=== PATIENT | female | born 1960 | race Caucasian/White ===

== ENCOUNTER 2018-11-25 10:31 | Emergency (ER) | payer OTHER ==
[~2018-11-25] VITALS: Ht 170.2 cm; Wt 152.9 kg
--- NOTE | 2018-11-25 10:44 | ED General ---
General Chief Complaint: Lower Extremity Stated Complaint: LWR BACK/RT LEG PAIN History of Present Illness Date Seen by Provider: Nov 25, 2018 Time Seen by Provider: 10:42 Initial Comments Patient presents emergency department for evaluation of low back pain rate is down her right leg and into her foot and causes her numbness on the top of her right foot. She says she is still able to ambulate but it is painful to do so. She is living in a position and she says this helps relieve her pain. She denies any saddle anesthesia or other weakness numbness or tingling and she denies any bowel or bladder incontinence she says she has had back problems before in the past but has never had radicular symptoms. She is in no obvious distress with normal vital signs. Allergies and Home Medications Allergies Coded Allergies: Penicillins (Verified Adverse Reaction, Mild, nausea, 11/25/18) Patient Home Medication List Home Medication List Reviewed: Yes Review of Systems Review of Systems Constitutional: no symptoms reported EENTM: no symptoms reported Respiratory: no symptoms reported Cardiovascular: no symptoms reported Gastrointestinal: No abdominal pain; nausea Genitourinary: no symptoms reported Musculoskeletal: back pain Skin: no symptoms reported Psychiatric/Neurological: Numbness; Denies Tingling, Denies Weakness Physical Exam Vital Signs Vital Signs - First Documented 11/25/18 10:35 Temp 36.7 Pulse 73 Resp 16 B/P (MAP) 131/59 (83) Pulse Ox 95 O2 Delivery Room Air Capillary Refill : Height, Weight, BMI Height: '" Weight: lbs. oz. kg; BMI Method: General Appearance: No Apparent Distress HEENT: PERRL/EOMI Neck: Supple Respiratory: No Respiratory Distress Cardiovascular: Regular Rate, Rhythm Gastrointestinal: Non Tender, Soft Back: Decreased Range of Motion, Muscle Spasm, Vertebral Tenderness (midline lumbar and R paraspinal ttp.) Neurologic/Psychiatric: Alert, Oriented x3, Sensory Deficit (top of right foot feels more numb and then the left foot), Other (5 out of 5 strength in bilateral knee and ankle big toe flexion and extension.) Skin: Warm/Dry Progress/Results/Core Measures Suspected Sepsis SIRS Temperature: Pulse: Respiratory Rate: Blood Pressure / Mean: Results/Orders My Orders Orders - TYRA CELIS DO Ct Lumbar Spine Wo (11/25/18 10:50) Ondansetron Oral Dissolve Tab (Zofran (11/25/18 10:50) Ketorolac Injection (Toradol Injection) (11/25/18 11:00) Dexamethasone Injection (Decadron Inject (11/25/18 11:00) Oxycodone/Apap 5/325mg Tablet (Percocet (11/25/18 11:00) Diazepam Tablet (Valium Tablet) (11/25/18 11:00) Ketorolac Injection (Toradol Injection) (11/25/18 10:54) Ketorolac Injection (Toradol Injection) (11/25/18 11:07) Diazepam Tablet (Valium Tablet) (11/25/18 12:00) Hydromorphone Injection (Dilaudid Inject (11/25/18 12:00) Fentanyl Injection (Sublimaze Injection (11/25/18 13:00) Medications Given in ED Current Medications Medications Dose Ordered Sig/Kassandra Route Start Time Stop Time Status Last Admin Dose Admin Dexamethasone Sodium Phosphate 8 mg ONCE ONCE PO 11/25/18 11:00 11/25/18 11:01 DC 11/25/18 11:03 8 MG Diazepam 5 mg ONCE ONCE PO 11/25/18 12:00 11/25/18 12:01 DC 11/25/18 12:09 5 MG Diazepam 10 mg ONCE ONCE PO 11/25/18 11:00 11/25/18 11:01 DC 11/25/18 11:02 10 MG Hydromorphone HCl 2 mg ONCE ONCE IM 11/25/18 12:00 11/25/18 12:01 DC 11/25/18 12:09 2 MG Ketorolac Tromethamine 60 mg ONCE ONCE IM 11/25/18 11:00 11/25/18 11:01 DC 11/25/18 11:10 60 MG Oxycodone/ Acetaminophen 2 tab ONCE ONCE PO 11/25/18 11:00 11/25/18 11:01 DC 11/25/18 11:02 2 TAB Vital Signs/I&O 11/25/18 10:35 Temp 36.7 Pulse 73 Resp 16 B/P (MAP) 131/59 (83) Pulse Ox 95 O2 Delivery Room Air Capillary Refill : Progress Note : Progress Note Symptoms are most consistent with a lumbar radiculopathy. No red flag signs or symptoms necessitating an emergent MRI. Will check CT treat symptoms and reassess. Patient was given Decadron Toradol Percocet and Valium initially and she said this only marginally improved her pain. I then gave her a shot of Dilaudid which she said helped her pain some more however she was wanting another pain shot. I told her if her pain is not controlled at this time that she could be admitted to the hospital for further pain control. She refused stating that her pain is controlled well enough she would like to go home. Her repeat neurologic exam is benign with no focal weakness and she is having no incontinence. I discuss all findings on the CT of the need for follow-up and she says she can follow-up with her primary care provider on Friday to discuss further testing or treatment that may be available to her. Patient will be discharged in stable condition told to follow-up and come back to the ED sooner with worsening pain neurologic changes or other general concerns. Patient aware and agreeable with plan for discharge and verbalized understanding of the above instructions. Departure Impression Primary Impression: Lumbar back pain with radiculopathy affecting right lower extremity Disposition: HOME, SELF-CARE Condition: Stable Departure-Patient Inst. Referrals: LES BETHEA MD (PCP/Family) Primary Care Physician Patient Instructions: Radiculopathy (DC) Add. Discharge Instructions: All discharge instructions reviewed with patient and/or family. Voiced understanding. No heavy lifting or straining. Take 500mg of tylenol every 6 hours. Use OTC lidocaine patches for pain. Follow with pcp as soon as you can and come back with worsening pain, weakness, or other general concerns. Thank you! Scripts Ibuprofen (Ibuprofen) 800 Mg Tablet 800 MG PO Q8H PRN for PAIN, #30 TAB 0 Refills Prov: TYRA CELIS DO 11/25/18 Oxycodone HCl/Acetaminophen (Percocet 5-325 mg Tablet) 1 Each Tablet 1 TAB PO Q6H PRN for PAIN-MODERATE MDD 6 for 4 Days, #14 TAB Prov: TYRA CELIS DO 11/25/18 TYRA CELIS DO Nov 25, 2018 10:44
[2018-11-25] MEDS ORDERED: ONDANSETRON 4 MG (ZOFRAN) ORAL DISSOLVE TAB PO STA (10:50)
[2018-11-25] MEDS ORDERED: KETOROLAC 60 MG/2 ML VIAL ONE ×2 (10:54→11:07)
[2018-11-25] MEDS ORDERED: DEXAMETHASONE 4 MG/ML SDV (DECADRON) PO ONE (11:00)
[2018-11-25] MEDS ORDERED: DIAZEPAM 5 MG (VALIUM) TABLET PO ONE ×2 (11:00→12:00)
[2018-11-25] MEDS ORDERED: oxyCODONE/APAP 5/325MG (PERCOCET 5) TABLET PO ONE (11:00)
[2018-11-25] MEDS ORDERED: KETOROLAC 15 MG/ML VIAL IM ONE (11:00)
[2018-11-25] MEDS ORDERED: HYDROmorphone 2 MG/ML VIAL (DILAUDID) IM ONE (12:00)
--- NOTE | 2018-11-25 12:12 | Diagnostic Imaging Report ---
PROCEDURE: CT lumbar spine without contrast. TECHNIQUE: Multiple contiguous axial images were obtained through the lumbar spine without the use of intravenous contrast. Sagittal and coronal reformations were then performed. Auto Exposure Controls were utilized during the CT exam to meet ALARA standards for radiation dose reduction. INDICATION: Low back pain radiating to the right hip. FINDINGS: Curvature and alignment of the lumbar spine is normal. Vertebral body heights are maintained. No acute fracture is seen. There is generalized degenerative disc disease with variable disc space narrowing and marginal spurring. There is vacuum disc noted at L3-4, L4-5 and L5-S1 levels. There is also significant lower lumbar facet arthropathy with vacuum facet at L4-5 and L5-S1 levels. Paraspinous tissues are unremarkable. IMPRESSION: Lumbar spondylosis. No acute bony abnormality is detected. Dictated by: Dictated on workstation # [id number]
[2018-11-25] MEDS ORDERED: fentaNYL INJECTION 100 MCG/2 ML AMP IM ONE (13:00)
[2018-11-25] MEDS ORDERED: IBUP-1780 PO (13:02)
[2018-11-25] MEDS ORDERED: OXYC-199 PO (13:02)
[2018-11-25 13:20] VITALS: BP 101/48
== END 2018-11-25 13:35 | disposition home or self-care (01) ==
LOC: ER FS 10:34
DX: M54.16 Radiculopathy, lumbar region (principal); Z88.0 Allergy status to penicillin
CPT/HCPCS: 72131

== ENCOUNTER → 2019-10-12 | Outpatient (CLI) | payer BC ==
[~2019-10-12] MED LIST: IBUP-1780 PO; OXYC-199 PO
--- NOTE | 2019-10-12 11:57 | Diagnostic Imaging Report ---
INDICATION: Knee pain COMPARISON: None. FINDINGS: 3 views of the left knee joint demonstrate no acute fracture or dislocation. No focal osseous lesions are seen. No significant joint effusion is seen. The surrounding soft tissue structures are unremarkable. There are no radiopaque foreign bodies. Mild osteoarthritic changes are noted. IMPRESSION: 1. No acute fractures or dislocations of the left knee joint. 2. Mild osteoarthritic changes. Dictated by: Dictated on workstation # [id number]
== END ==
LOC: RAD FS 10:48
PROVIDERS: ATTEND Family Medicine
DX: M17.12 Unilateral primary osteoarthritis, left knee (principal)
CPT/HCPCS: 73562

== ENCOUNTER 2020-12-01 16:49 | Emergency (ER) | payer BC ==
[~2020-12-01] VITALS: Ht 170 cm; Wt 100.0 kg
--- OUTSIDE RECORDS SUMMARY | 2020-12-01 16:53 | XMS REPORT | Encounter Summary ---
Author Author [facility] Organization [facility] Address Unknown Phone Unavailable Care Team Providers Care Honey Producer Name Role Phone Awilda Reynolds MD PCP Encounter Details Care Team Description Date Type Department EmerArie cordoba MD [address] [facility] [place] [address] [phone] 11/01/2020 Hospital Cardiovascular [facility] cine Encounter Remote Device Check [phone] Social History Date Tobacco Use Types Packs/Day Years Used Former Smoker 0.5 33 Smokeless Tobacco: Never Used Comments Alcohol Use Standard Drinks/Week No 0 (1 standard drink = 0.6 o z pure alcohol) Sex Assigned at Date Recorded Not on file documented as of this encounter Functional Status Date of Assessment Functional Status Response 03/21/2018 Does the patient have a hearing impairment: No documented as of this encounter Medications at Time of Discharge Start Date End Date Medication Sig Dispensed Refills 05/09/2017 albuterol (PROAIR HFA, Inhale 2 1 Inhaler 11 VENTOLIN HFA, OR puffs by PROVENTIL HFA) 90 mouth into mcg/actuation the lungs inhalerIndications: LUJAN every 4-6 (dyspnea on exertion) hours as needed for Wheezing or Shortness of Breath. 07/09/2016 albuterol 0.5% Inhale 0.5 mL 60 Vial 0 (PROVENTIL; VENTOLIN) 2.5 solution by mg/0.5 mL nebulizer nebulizer as solution directed every 8 hours as needed for Shortness of Breath or Wheezing. 08/15/2020 apixaban (ELIQUIS) 5 mg Take one 180 tablet 1 tablet tablet by mouth twice daily. 04/01/2018 ascorbic acid (VITAMIN C) Take one 90 tablet 3 500 mg tablet tablet by mouth at bedtime daily. 02/06/2018 atorvastatin (LIPITOR) 20 Take one 90 tablet 3 mg tablet tablet by mouth daily. blood sugar diagnostic Use 1 strip 0 (TRUE METRIX GLUCOSE TEST as directed. STRIP) test strip 04/01/2018 budesonide/formoterol Inhale two 3 Inhaler 3 (SYMBICORT HFA) 160/4.5 puffs by mcg mouth into inhalationIndications: the lungs maintenance therapy for twice daily. asthma 07/01/2018 cetirizine (ZYRTEC) 10 mg Take one 90 tablet 3 tablet tablet by mouth daily. diazePAM (VALIUM) 10 mg Take 10 mg by 0 tablet mouth as Needed for Anxiety. dulaglutide (TRULICITY) Inject under 0 1.5 mg/0.5 mL injection the skin pen every 7 days. glipiZIDE (GLUCOTROL) 5 Take 5 mg by 0 mg tablet mouth twice daily with meals. HYDROcodone/acetaminophen Take 1 Tab by 0 (+) (NORCO) 10/325 mg mouth every 6 tablet hours as needed for Pain ibuprofen (MOTRIN) 800 mg Take 800 mg 0 tablet by mouth every 6 hours as needed for Pain. Take with food. 12/10/2016 metFORMIN (GLUCOPHAGE) Take 1,000 mg 0 1,000 mg tablet by mouth twice daily with meals. 09/19/2020 metoprolol XL (TOPROL XL) Take 1/2 90 tablet 3 25 mg extended release (one-half) tablet tablet by mouth twice daily montelukast (SINGULAIR) Take 1 tablet 0 10 mg tablet by mouth daily. 04/01/2018 senna/docusate Take one 30 tablet 1 (SENOKOT-S) 8.6/50 mg tablet by tabletIndications: mouth twice constipation daily as needed. 08/01/2020 sotaloL (BETAPACE) 80 mg TAKE 1 TABLET 180 tablet 3 tablet BY MOUTH TWICE DAILY . APPOINTMENT REQUIRED FOR FUTURE REFILLS 05/18/2017 SYNTHROID 100 mcg tablet Take 100 mcg 0 by mouth daily. 07/26/2020 torsemide (DEMADEX) 20 mg Take one 45 tablet 5 tablet tablet by mouth every 48 hours AND one-half tablet every 48 hours. take 20mg on odd number days and 10mg on even number days. documented as of this encounter Discharge Disposition Code Departure Means Destination Disposition Home Home or Self Care documented in this encounter Plan of Treatment Not on filedocumented as of this encounter Procedures Comments Procedure Name Priority Date/Time Associated Diag nosis DEVICE EVALUATION - Routine 11/01/2020 Paroxysmal atrial flutter REMOTE ILR CHARGES 11:02 AM CDT (HCC) Essential hypertension Atrial fibrillation with RVR (HCC) Lightheaded documented in this encounter Results * DEVICE EVALUATION - REMOTE ILR (11/01/2020 11:02 AM CDT) Device Type ILR MUR[facility] Device [facility] MUR[facility] [place] Transmitter Compatible Generator Idoobletronic MUR[facility] Primary Health Care Nurse Generator Model [id number] MURJ # Generator [id number] MURJ Serial # Generator [id number] MURJ Implnat Date On yes MURJ Anticoagulation Specimen Narrative Performed At MUR[facility] Title: Normal Remote: No Events * This is a normal remote diagnostic de vice check * Alerts or events: None * Battery data was reviewed * Battery status: , * Presenting rhythm reviewed * Heart Rate Histograms reviewed Additional Notes: reviewing location OP [place] Performing Organization Address City/State/ZIP Code [place] Number MURJ documented in this encounter Visit Diagnoses Not on filedocumented in this encounter Additional Health Concerns Assessment Noted Time A fall risk assessment has been completed for the pat ient 07/26/2020 11:08 AM CDT PHQ-2 Depression Total Score: 0 03/09/2018 10:40 AM PHYSICAL INSTRUCTOR documented as of this encounter
--- OUTSIDE RECORDS SUMMARY | 2020-12-01 16:53 | XMS REPORT | Encounter Summary ---
Author Author [facility] Organization [facility] Address Unknown Phone Unavailable Care Team Providers Care Boat Canvas Installer Name Role Phone Awilda Reynolds MD PCP Reason for Visit * Reason Onset Date Comments Remote Monitoring 10/02/2020 Disconnected monito r Carelink Questions Encounter Details Care Team Description Date Type Department Acosta Velarde Remote Monitoring Questions (Disconnecte d monitor Carelink ) 10/02/2020 Telephone Cardiology: [facility] [address] [facility] [address] [place] [address] Social History Date Tobacco Use Types Packs/Day [...] impairment: No documented as of this encounter Miscellaneous Notes * Telephone Encounter - Acosta Velarde - 10/16/2020 9:31 AM CDT Monitor reconnected as of 10/16/20. CDJ * Telephone Encounter - Acosta Velarde - 10/02/2020 1:08 PM CDT Received notification that [employer] Carelink has not been connected since 08/02 11/21. Patient was instructed to look at his/her transmitter to make sure that it is pl ugged into power and send a manual transmission to reconnect the transmitter. If he/she has any questions about how to send a transmission or if the transmitter does not appear to be working properly, they need to contact the device company directly. Patient was provided with that contact number. Requested the patient send us a [employer] message or contact our device nurses at [phone] to let us know after they have sent their transmission. Called preferred phone number [phone], Voice mail box not set up, TouristWayhart n ot set up. Per permission to communicate we are not able to speak with anyone bu t the patient. I will send a letter to address in chart. CDJ documented in this encounter Plan of Treatment Not on filedocumented as of this encounter Visit Diagnoses Not on filedocumented in this encounter Additional Health Concerns Assessment Noted Time A fall risk assessment has been completed for the pat ient 07/26/2020 11:08 AM CDT PHQ-2 Depression Total Score: 0 03/09/2018 10:40 AM TAX MANAGER documented as of this encounter
--- OUTSIDE RECORDS SUMMARY | 2020-12-01 16:53 | XMS REPORT | Encounter Summary ---
Author Author [facility] Organization [facility] Address Unknown Phone Unavailable Care Team Providers Care Ship Pilot Name Role Phone Awilda Reynolds MD PCP Reason for Visit * Reason Onset Date Comments Remote Monitoring 10/26/2020 remote connected at this time- unable to reach pt to address Questions transmitter lights. Encounter Details Care Team Description Date Type Department Gabbie Mckinnon Remote Monitoring Questions (remote conn ected at this time- unable to reach pt to address transmitter lights.) 10/26/2020 Telephone Cardiology: [facility], [id number] [place] [address]. [address] [place] [address] Social History Date Tobacco Use Types Packs/Day [...] encounter Miscellaneous Notes * Telephone Encounter - Pratibha Gabbie Perla - 10/26/2020 8:16 AM CDT ----- Message from Miriam Torres sent at 10/25/2020 7:57 AM CDT ----- Regarding: FW: ILR ----- Message ----- From: Vidhi Flores Sent: 10/25/2020 To: Hung Ep Remote Subject: ILR Patient left a VM on the device line. Patient reporting she has been having issu es sending in a transmission. I verified via [employer] that patient is connected at this time. Attempted to call patient multiple times and her VM was full. Soraida hililard try to reach out to patient and have her send a manual transmission. documented in this encounter Plan of Treatment Not on filedocumented as of this encounter Visit Diagnoses Not on filedocumented in this encounter Additional Health Concerns Assessment Noted Time A fall risk assessment has been completed for the pat ient 07/26/2020 11:08 AM CDT PHQ-2 Depression Total Score: 0 03/09/2018 10:40 AM DAY HAUL YOUTH SUPERVISOR documented as of this encounter
--- OUTSIDE RECORDS SUMMARY | 2020-12-01 16:53 | XMS REPORT | Clinical Summary ---
Author Author [facility] Organization [facility] Address Unknown Phone Unavailable Care Team Providers Care Blend Plant Operator Name Role Phone Awilda Reynolds MD PCP Source Comments Some departments are not documenting in the electronic medical record. If you d o not see the information that you expected, contact Release of Information in [facility] [employer] Information Management department at [phone] for further assistan ce in locating additional records.[facility] Allergies Comments Active Allergy Reactions Severity Noted Date Codeine NAUSEA ONLY Low 06/28/2016 Medications End Date Status Medication Sig Dispensed Refills Start Date Active albuterol 0.5% Inhale 0.5 mL 60 Vial 0 (PROVENTIL; VENTOLIN) 2.5 solution by 7 mg/0.5 mL nebulizer nebulizer as solution directed every 8 hours as needed for Shortness of Breath or Wheezing. Active diazePAM (VALIUM) 10 mg Take 10 mg by 0 tablet mouth as Needed for Anxiety. Active HYDROcodone/acetaminophen Take 1 Tab by 0 (+) (NORCO) 10/325 mg mouth every 6 tablet hours as needed for Pain Active metFORMIN (GLUCOPHAGE) Take 1,000 mg 0 12/10/2 01 1,000 mg tablet by mouth 7 twice daily with meals. Active glipiZIDE (GLUCOTROL) 5 Take 5 mg by 0 mg tablet mouth twice daily with meals. Active albuterol (PROAIR HFA, Inhale 2 1 Inhaler 11 VENTOLIN HFA, OR puffs by 8 PROVENTIL HFA) 90 mouth into mcg/actuation the lungs inhalerIndications: LUJAN every 4-6 (dyspnea on exertion) hours as needed for Wheezing or Shortness of Breath. Active SYNTHROID 100 mcg tablet Take 100 mcg 0 05/18 by mouth 8 daily. Active ibuprofen (MOTRIN) 800 mg Take 800 mg 0 tablet by mouth every 6 hours as needed for Pain. Take with food. Active atorvastatin (LIPITOR) 20 Take one 90 tablet 3 mg tablet tablet by 8 mouth daily. Active blood sugar diagnostic Use 1 strip 0 (TRUE METRIX GLUCOSE TEST as directed. STRIP) test strip Active dulaglutide (TRULICITY) Inject under 0 1.5 mg/0.5 mL injection the skin pen every 7 days. Active budesonide/formoterol Inhale two 3 Inhaler 3 03/05 (SYMBICORT HFA) 160/4.5 puffs by 9 mcg mouth into inhalationIndications: the lungs maintenance therapy for twice daily. asthma Active senna/docusate Take one 30 tablet 1 (SENOKOT-S) 8.6/50 mg tablet by 9 tabletIndications: mouth twice constipation daily as needed. Active ascorbic acid (VITAMIN C) Take one 90 tablet 3 500 mg tablet tablet by 9 mouth at bedtime daily. Active cetirizine (ZYRTEC) 10 mg Take one 90 tablet 3 tablet tablet by 9 mouth daily. Active montelukast (SINGULAIR) Take 1 tablet 0 10 mg tablet by mouth daily. Active torsemide (DEMADEX) 20 mg Take one 45 tablet 5 tablet tablet by 1 mouth every 48 hours AND one-half tablet every 48 hours. take 20mg on odd number days and 10mg on even number days. Active sotaloL (BETAPACE) 80 mg TAKE 1 TABLET 180 tablet 3 tablet BY MOUTH 1 TWICE DAILY . APPOINTMENT REQUIRED FOR FUTURE REFILLS Active apixaban (ELIQUIS) 5 mg Take one 180 tablet 1 tablet tablet by 1 mouth twice daily. Active metoprolol XL (TOPROL XL) Take 1/2 90 tablet 3 25 mg extended release (one-half) 1 tablet tablet by mouth twice daily Active Problems Problem Noted Date H/O radiofrequency ablation for complex left atrial a rrhythmia 12/04/2018 Overview: Formatting of this note might be differ ent from the original. X 2 Chronic pain 03/30/2018 Chronic hypoxemic respiratory failure 03/24/2018 Atrial fibrillation with RVR 03/22/2018 Streptococcus pneumoniae pneumonia 03/21/2018 Chronic diastolic heart failure 03/09/2018 ELISABETH on CPAP 03/09/2018 Asthma 01/30/2018 Essential hypertension 01/30/2018 HLD (hyperlipidemia) 01/30/2018 Fluid overload, not related to heart failure 018 Hypothyroidism 12/11/2016 Last Assessment & Plan: Formatting of this note might be differ ent from the original. PCP managing, and increased Synthroid t o 100 mcg daily. Morbid obesity with BMI of 50.0-59.9, adult 12/12/19 17 Shortness of breath 12/05/2016 Last Assessment & Plan: Formatting of this note might be differ ent from the original. Ms Coulter continues to be short of breat h. Again, I find this to be multifactorial given her obesity, decon ditioning, and history of prolonged intubation. She completed a CXR, CCTA, RLE US, and ddimer that showed some concern for pneumonia in the past month . She has finished Keflex, and was also placed on Dulera by her PCP withou t improvements. She continues to feel wheezy, and complains of congestio n, cough, and sneezing. Her lungs sound clear. She also was given a ster oid injection 2 weeks ago for her knee issues without improvement of her shortness of breath. 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 She is not significantly volume overloaded with only mild lower extremity swelling today. She was started on Demadex last OV to use PRN a s she had before. She states she uses it on her days off. She last used it on Friday, and it helps with LE swelling. She also had a BMP completed Friday that was normal. I will recheck labs. I have recommended further pulmonary wo rk up with revisiting her PCP or pulmonary specialists. Palpitations 08/22/2016 Paroxysmal atrial flutter 06/28/2016 Acute on chronic respiratory failure 06/28/2016 Constipation 06/28/2016 Type 2 diabetes mellitus without complication, with l vanda-term current use 06/28/2016 of insulin Resolved Problems Problem Noted Date Resolved Date CAP (community acquired pneumonia) 02/02/201808/2018 Acute on chronic diastolic heart failure 07/21/2017 01/29/2018 Encephalopathy acute 06/28/2016 01/29/2018 Hemoptysis 06/28/2016 01/29/2018 On mechanically assisted ventilation 06/28/2016 1 03/31/2017 SUNNY (acute kidney injury) 06/28/2016 01/29/2018 Last Assessment & Plan: Formatting of this note might be differ ent from the original. Resolved, and CrCl is 200.69 today with at Cr 0.7 and ABW (adjusted body weight) at 140 kg (actual body weight i s >30% ideal body weight at 150.6 kg today). Patient is checking into other OAC options today at the pharmacy as Savaysa is no longer appropriate wit h her normal renal function. Atelectasis of both lungs 06/28/2016 01/29/2018 Encounters Care Team Description Date Type Specialty Arie Peter MD 11/01/2020 Hospital Cardiology Encounter Gabbie Mckinnon Remote Monitoring Questions (remote conn ected at this time- unable to reach pt to address transmitter lights.) 10/26/2020 Telephone Cardiology Madison Raman Remote Monitoring Questions 10/16/2020 Telephone Cardiology Acosta Velarde Remote Monitoring Questions (Disconnecte d monitor [facility] ) 10/02/2020 Telephone Cardiology Arie Peter MD Medication Refill 09/19/2020 Refill Cardiology Arie Peter MD 08/31/2020 Hospital Cardiology Encounter from Last 3 Months Surgical History Surgery Date Site/Laterality Comments ABLATION OF DYSRHYTHMIC 06/12/16 catheter ablat ion of afib FOCUS THYROIDECTOMY HYSTERECTOMY APPENDECTOMY VERTEBROPLASTY TRACHEOSTOMY 06/25/16 HX TONSILLECTOMY HX HEART CATHETERIZATION Medical History Medical History Date Comments Chronic a-fib (HCC) Morbid obesity (HCC) Diabetes mellitus (HCC) Asthma Hypothyroidism ELISABETH (obstructive sleep apnea) Depression Anxiety Atrial flutter (HCC) Edema Paroxysmal atrial flutter (HCC) 06/28/2016 Morbid obesity with BMI of 50.0-59.9, 12/11/2016 adult (HCC) Essential hypertension 01/30/2018 HLD (hyperlipidemia) 01/30/2018 Chronic diastolic heart failure (HCC) 03/09/2018 Chronic pain 03/30/2018 Family History Medical History Relation Name Comments Stroke Brother Stroke Father Asthma Sister Depression Sister Diabetes Sister Heart Attack Sister Relation Name Status Comments Brother Father Mother Sister Alive Social History Date Tobacco Use Types Packs/Day Years Used Former Smoker 0.5 33 Smokeless Tobacco: Never Used Comments Alcohol Use Standard Drinks/Week No 0 (1 standard drink = 0.6 o z pure alcohol) Sex Assigned at Date Recorded Not on file Obstetrics History Term Pre Abrt (TAB) (SAB) (Ect) Mult Lvng Comments Grav Para 1 2 1 1 Date GA Total Labor Labor/2nd/3rd Weight Sex Delivery Anes PTL Cassia A1 A5 Name Clin Outcome F N Living Term Last Filed Vital Signs Reading Time Taken Comments Vital Sign 108/68 07/26/2020 11:08 AM CDT Blood Pressure 70 07/26/2020 11:08 AM CDT Pulse 36.2 C (97.2 F) 11/29/2019 9:57 AM CDT Temperature 18 03/10/2017 1:04 PM ACQUISITION ANALYST Respiratory Rate 97% 11/29/2019 9:57 AM CDT Oxygen Saturation - - Inhaled Oxygen Concentration 144.9 kg (319 lb 6.4 oz) 07/26/2020 11:08 AM CDT Weight 171.5 cm (5' 7.5") 07/26/2020 11:08 AM CDT Height 49.29 07/26/2020 11:08 AM CDT Body Mass Index Plan of Treatment Health Maintenance Due Date Last Done Comments HIV SCREENING 1976 DILATED EYE EXAM 10/16/1979 DTAP/TDAP VACCINES (1 - 10/16/1979 Tdap) FOOT EXAM 10/16/1979 HEPATITIS C SCREENING 10/16/1979 MICROALBUMIN 10/16/1979 PHYSICAL (COMPREHENSIVE) 10/16/1979 EXAM PNEUMONIA VACCINE (DM) 10/16/1979 CERVICAL CANCER SCREENING 1982 BREAST CANCER SCREENING 2001 COLORECTAL CANCER 10/16/2011 SCREENING SHINGLES RECOMBINANT 10/16/2011 VACCINE (1 of 2) HBA1C 07/30/2018 01/30/2018 INFLUENZA VACCINE 10/01/2020 Implants Device Identifier Shelf Expiration Date Model / Serial / L ot Implanted Type Area Manufactur er Loop Recorder Loop Recorder Procedures Comments Procedure Name Priority Date/Time Associated Diag nosis DEVICE EVALUATION - Routine 11/01/2020 Paroxysmal atrial flutter REMOTE ILR CHARGES 11:02 AM CDT (HCC) Essential hypertension Atrial fibrillation with RVR (HCC) Lightheaded DEVICE EVALUATION - Routine 09/09/2020 Paroxysmal atrial flutter REMOTE ILR CHARGES 10:56 AM CDT (HCC) Essential hypertension Atrial fibrillation with RVR (HCC) Lightheaded from Last 3 Months Results * DEVICE EVALUATION - REMOTE ILR (11/01/2020 11:02 AM CDT) Device Type ILR MUR[facility] Device [facility] [place] Transmitter Compatible Generator Medtronic MURJ Film Laboratory Technician Generator Model LNQ11 MURJ # Generator [id number] MURJ Serial # Generator [id number] MURJ Implnat Date On yes MURJ Anticoagulation [...] Address City/State/ZIP Code [place] * DEVICE EVALUATION - REMOTE ILR (09/09/2020 10:56 AM CDT) Device Type ILR MURJ Device [facility] [place] Transmitter Compatible Generator Medtronic MUR[facility] Film Laboratory Technician Generator Model LNQ11 MURJ # Generator [id number] MURJ Serial # Generator 2017-10-09 MURJ Implnat Date On yes MURJ Anticoagulation Specimen Narrative Performed At M[facility] Title: Normal Remote: No Events * This is a normal remote diagnostic de vice check * Alerts or events: None * Battery data was reviewed * Battery status: , * Presenting rhythm reviewed * Heart Rate Histograms reviewed Additional Notes: reviewing location::O PKS Performing Organization Address City/State/ZIP Code [place] MUR[facility] from Last 3 Months Insurance Type Payer Benefit Subscriber ID Effective Phone Address Plan / Dates Group PPO BCBS DEBBIE BCBS PC [id number] [id number] BLUE OUT resent OF STATE [address] (Home) [place] [id number] Advance Directives Patient Erp Specialist Explanation Type Date Recorded Advance 03/21/2018 11:24 PM Directive/DPOA Date Inactivated Comments Code Status Date Activated 04/01/2018 2:37 PM Full Code 03/22/2018 1:32 AM Provider has discussed Code Status Yes w/Patient or Family? 02/05/2018 3:48 PM Full Code 01/30/2018 3:24 AM Provider has discussed Code Status Yes w/Patient or Family? 01/30/2018 3:24 AM Full Code 01/30/2018 1:45 AM Provider has discussed Code Status No, more discussi on w/Patient or Family? needed 07/09/2016 5:54 PM Full Code 06/28/2016 11:24 AM Provider has discussed Code Status No, more discussi on w/Patient or Family? needed
[2020-12-01] MEDS ORDERED: POTASSIUM CL 10MEQ/50ML IVPB 50 ML IV ONE (17:00)
[2020-12-01] MEDS ORDERED: NS IV 1000 ML 1,000 ML IV SCH (17:00)
--- NOTE | 2020-12-01 17:14 | ED Abdominal Pain ---
General Stated Complaint: ELEV LIVER LEVELS,LOW POTASSIUM LEVEL Source of Information: Patient Exam Limitations: No Limitations (TRUE EDWARDS APRN) History of Present Illness Date Seen by Provider: Dec 01, 2020 Time Seen by Provider: 17:09 Initial Comments Patient presents to ER with reports of abnormal labs. She states that starting on 11/26/2020 she developed some dark loose diarrhea, too many episodes to count. She has some right-sided mid abdominal pain with nausea but no vomiting. Last food intake was a vanilla shake for breakfast this morning nothing since then including no liquids. No fevers or chills. She had labs done today at her primary care provider's office, Dr. Bethea in [facility]. She was found to have elevated AST, ALT, alkaline phosphatase as well as a total bilirubin of 11.4. She has a normal hemoglobin of 14 and a normal white count. She has a complicated medical history including atrial fibrillation, chronic diastolic heart failure, obesity, type 2 diabetes, hypothyroidism, obstructive sleep apnea, depression, anxiety, hypertension, hyperlipidemia. Previous surgical history includes pulmonary vein isolation for ablation of atrial fibrillation complicated by respiratory failure and prolonged intubation at the [facility], hypothyroidism hysterectomy, appendectomy, vertebroplasty tonsillectomy and cardiac catheterization. She is on Eliquis and took her last dose this morning. Timing/Duration: 1 Week Severity/Quality: Moderate Location: RUQ Radiation: No Radiation Activities at Onset: None Associated Symptoms: Nausea/Vomiting (Nausea without vomiting) (TRUE EDWARDS APRN) Allergies and Home Medications Allergies Coded Allergies: Penicillins (Verified Adverse Reaction, Mild, nausea, 11/25/18) Patient Home Medication List Home Medication List Reviewed: Yes (TRUE EDWARDS APRN) Ibuprofen (Ibuprofen) 800 Mg Tablet, 800 MG PO Q8H PRN for PAIN Prescribed by: TYRA CELIS on 11/25/18 1302 Oxycodone HCl/Acetaminophen (Percocet 5-325 mg Tablet) 1 Each Tablet, 1 TAB PO Q6H PRN for PAIN-MODERATE Prescribed by: TYRA CELIS on 11/25/18 1302 Review of Systems Review of Systems Constitutional: see HPI; No chills, No fever; malaise EENTM: No Symptoms Reported Respiratory: No Symptoms Reported Cardiovascular: No Symptoms Reported Gastrointestinal: See HPI, Abdominal Pain, Diarrhea, Nausea; Denies Vomiting Genitourinary: No Symptoms Reported Musculoskeletal: no symptoms reported Skin: no symptoms reported Psychiatric/Neurological: No Symptoms Reported Endocrine: No Symptoms Reported Hematologic/Lymphatic: No Symptoms Reported (TRUE EDWARDS APRN) Past Fpvykes-Pnopci-Kdxzrk Hx Seasonal Allergies Seasonal Allergies: No (TRUE EDWARDS APRN) Past Medical History Appendectomy, Cardiac, Orthopedic Respiratory: No Cardiac: Yes Atrial Fibrillation Neurological: No Genitourinary: No Gastrointestinal: No Musculoskeletal: No Diabetes, Insulin dep HEENT: No Cancer: No Psychosocial: No Integumentary: No Blood Disorders: No (TRUE EDWARDS APRN) Physical Exam Vital Signs Vital Signs - First Documented 12/01/20 17:40 Temp 37.0 Pulse 76 Resp 18 B/P (MAP) 147/84 (105) Pulse Ox 97 (YNES DAO DO) Vital Signs Capillary Refill : (TRUE EDWARDS APRN) Height/Weight/BMI Height: '" Weight: lbs. oz. kg; 52.00 BMI Method: General Appearance: WD/WN, no apparent distress HEENT: PERRL/EOMI, TMs normal, other (Scleral icterus noted) Neck: non-tender, full range of motion Respiratory: normal breath sounds, no respiratory distress, no accessory muscle use Cardiovascular: regular rate, rhythm, no murmur Gastrointestinal: normal bowel sounds, soft, tenderness (Right upper quadrant tenderness) Extremities: normal range of motion, non-tender Neurologic/Psychiatric: alert, normal mood/affect, oriented x 3 Skin: warm/dry, jaundice (TRUE EDWARDS APRN) Progress/Results/Core Measures Results/Orders Lab Results Laboratory Tests Test 12/01/20 17:13 12/01/20 19:35 Range/Units Magnesium Level 1.9 1.6-2.4 MG/DL B-Type Natriuretic Peptide 52.2 <100.0 PG/ML SARS-CoV-2 RNA (RT-PCR) Not Detected Not Detecte (YNES DAO DO) Medications Given in ED Current Medications Medications Dose Ordered Sig/Kassandra Route Start Time Stop Time Status Last Admin Dose Admin Fentanyl Citrate 50 mcg ONCE ONCE IVP 12/01/20 17:15 12/01/20 17:16 DC 12/01/20 18:01 50 MCG Fentanyl Citrate 75 mcg ONCE ONCE IVP 12/01/20 19:00 12/01/20 19:01 DC 12/01/20 19:09 75 MCG Fentanyl Citrate 75 mcg ONCE ONCE IVP 12/01/20 20:45 12/01/20 20:46 DC 12/01/20 20:56 75 MCG Fentanyl Citrate 75 mcg ONCE ONCE IVP 12/01/20 21:45 12/01/20 21:46 DC 12/01/20 21:45 75 MCG Iohexol 100 ml ONCE ONCE IV 12/01/20 18:30 12/01/20 18:31 DC 12/01/20 18:33 100 ML Lorazepam 0.5 mg ONCE PRN IVP 12/01/20 19:45 12/01/20 21:59 DC 12/01/20 19:51 0.5 MG Lorazepam 0.5 mg ONCE PRN IVP 12/01/20 21:45 12/01/20 21:59 DC 12/01/20 21:45 0.5 MG Ondansetron HCl 4 mg ONCE ONCE IVP 12/01/20 17:15 12/01/20 17:16 DC 12/01/20 17:58 4 MG Potassium Chloride 50 ml @ 50 mls/hr ONCE ONCE IV 12/01/20 17:00 12/01/20 17:59 DC 12/01/20 18:02 50 MLS/HR Sodium Chloride 10 ml NEEDED PRN IV 12/01/20 18:30 12/01/20 21:59 DC 12/01/20 18:33 10 ML Sodium Chloride 100 ml ONCE ONCE IV 12/01/20 18:30 12/01/20 18:31 DC 12/01/20 18:33 100 ML (YNES DAO DO) Vital Signs/I&O 12/01/20 12/01/20 12/01/20 17:40 19:11 20:58 Temp 37.0 Pulse 76 77 Resp 18 18 18 B/P (MAP) 147/84 (105) 129/65 130/60 Pulse Ox 97 96 97 (YNES DAO DO) Departure Communication (Admissions) Family Conversation NAME: ETHAN ORTIZ [facility] REC#: [id number] PT STATUS: REG ER : 1960 PHYSICIAN: TRUE EDWARDS APRN ADMIT DATE: 12/01/20/ER Draft Date of Exam:12/01/20 US GALLBLADDER [id number] PROCEDURE: US Gallbladder. TECHNIQUE: Multiple real-time grayscale images were obtained over the right upper quadrant in various projections. INDICATION: Gallstone pancreatitis, jaundice, abdominal pain. COMPARISON: None. FINDINGS: The imaged portions of the aorta and IVC are unremarkable. The imaged portion of the pancreas has a dilated duct, which measures up to 6 mm wide. The tail was not well seen due to bowel gas. No shadowing stones are seen within the pancreatic duct. The liver is large measuring 21.4 cm in length. Echogenicity appears mildly increased. No focal hepatic lesion is seen. There does appear to be moderate intrahepatic biliary dilatation. There is certainly extrahepatic biliary dilatation with the common bile duct measuring 2.4 cm in diameter. No stone is seen in the imaged portions of the common bile duct. The gallbladder wall is not thickened, but the gallbladder does appear distended, measuring 17 cm in length. No stones are seen in the gallbladder. No pericholecystic fluid is seen. Sonographic Vasquez's sign is not reported. The right kidney measures 12.7 cm in length. There is no hydronephrosis. No stones are seen. No free fluid is identified. IMPRESSION: 1. Marked extrahepatic and moderate intrahepatic biliary dilatation as well as pancreatic ductal dilatation. Findings are concerning for pancreatic malignancy, with distal choledocholithiasis in the differential. Consider endoscopic ultrasound to further evaluate. 2. Hepatomegaly with hepatic steatosis. Dictated on workstation # [id number] Dict: 12/01/20 1805 Trans: 12/01/20 1813 [id number] Interpreted by: FRANCO ADAME MD Electronically signed by: NAME: ETHAN ORTIZ [facility] REC#: [id number] PT STATUS: REG ER : 1960 PHYSICIAN: TRUE EDWARDS APRN ADMIT DATE: 12/01/20/ER Signed Date of Exam:12/01/20 CT ABDOMEN/PELVIS W PROCEDURE: CT abdomen and pelvis with contrast. TECHNIQUE: Multiple contiguous axial images were obtained through the abdomen and pelvis after administration of intravenous contrast. Auto Exposure Controls were utilized during the CT exam to meet ALARA standards for radiation dose reduction. All CT scans use one or more of the following dose optimizing techniques: automated exposure control, MA and/or KvP adjustment based on patient size and exam type or iterative reconstruction. INDICATION: Gallstone pancreatitis. COMPARISON: Gallbladder ultrasound 12/01/2020. CT lumbar spine without contrast 11/25/2018. FINDINGS: Lung bases are clear. Prominent common bile duct measures up to 1.5 cm in diameter. No definite obstructing lesion is identified. There is some mild low attenuation within the head of the pancreas without a discrete mass identified. There is a well-circumscribed cystic-appearing nodule in the tail of the pancreas measuring up 1.5 cm. The main pancreatic duct measures up to 0.6 cm in diameter. Distended gallbladder with mild intrahepatic biliary ductal dilatation. No mass is seen within the liver. Multiple nodules in the left adrenal gland measuring up to 2.3 x 1.8 cm. These appear similar to the 11/25/2018 noncontrast exam. No lymphadenopathy. No free intraperitoneal air or fluid. No evidence of bowel obstruction. No acute osseous finding. Moderate spondylotic changes in the visualized spine. IMPRESSION: 1. Again seen is a dilated common bile duct, distended gallbladder, intrahepatic biliary ductal dilatation and dilated main pancreatic duct. No definite obstructing lesion is identified. There is some indeterminate ill-defined hypoattenuation in the pancreatic head which could represent an underlying mass. There is also a cystic-appearing nodule in the tail of the pancreas measuring up 1.5 cm. Recommend dedicated MRI of the abdomen without and with IV contrast. No gallstone or choledocholithiasis is identified. 2. Multiple indeterminate left adrenal nodules appear stable compared to the noncontrast CT from 11/25/2017. Although these most likely represent benign adenomas, they could also be better characterized with MRI. Dictated by: Dictated on workstation # [id number] Dict: 12/01/20 1836 Trans: 12/01/201914 [facility] [id number] Interpreted by: DOROTHY REYES MD Electronically signed by: DOROTHY REYES MD 12/01/201914 1802-I spoke with Dr. Mendoza on-call for general surgery about the ultrasound findings. These show fatty liver, intrahepatic ductal dilatation with a common bile duct that measures up to 2 cm in diameter. There is also a dilated pancreatic duct, the gallbladder is enlarged at 17 cm in length. There are no stones within the gallbladder though there is sludge. This needs an ERCP/EUS which is not a service we can provide here. She is established at with electrophysiology and cardiology and I will work on transferring her there. Dr. Mendoza agrees with this plan 1916-discussed with the patient that this may be sales representative education courses of a stone that is not visualized on imaging as of yet versus a tumor of the pancreas possibly cancerous. She will need to go to . She agrees with this plan. She will need to go by EMS for cardiac monitoring on the way to the hypokalemia and the need for IV pain medication. 1931-Dr Roman from has accepted. Will get covid swab here. (TRUE EDWARDS APRN) Impression Primary Impression: Biliary obstruction Additional Impressions: Hypokalemia Abdominal pain Disposition: XFER SHT-TRM HOSP Condition: Stable Transfer Transfer Reason: Exceeds level of care Time Spoke to Accepting Phy: 18:20 (TRUE EDWARDS APRN) Departure-Patient Inst. Referrals: LES BETHEA MD (PCP/Family) Primary Care Physician ATTENDING PHYSICIAN NOTE: I WAS PHYSICALLY PRESENT ER PHYSICIAN WHEN THIS PATIENT WAS IN ER, BUT I WAS NOT INVOLVED IN DECISION MAKING OR ANY CARE OF THIS PATIENT. (YNES DAO DO) Copy Copies To 1: LES BETHEA MD, PETER J APRN Dec 01, 2020 17:13 YNES DAO DO Dec 02, 2020 02:04
[2020-12-01] MEDS ORDERED: ONDANSETRON 4 MG/2 ML (SDV) Z0FRAN IVP ONE (17:15)
[2020-12-01] MEDS ORDERED: fentaNYL INJ 100 MCG/2 ML AMP IVP ONE ×4 (17:15→21:45)
--- NOTE | 2020-12-01 18:14 | Diagnostic Imaging Report ---
PROCEDURE: US Gallbladder. TECHNIQUE: Multiple real-time grayscale images were obtained over the right upper quadrant in various projections. INDICATION: Gallstone pancreatitis, jaundice, abdominal pain. COMPARISON: None. FINDINGS: The imaged portions of the aorta and IVC are unremarkable. The imaged portion of the pancreas has a dilated duct, which measures up to 6 mm wide. The tail was not well seen due to bowel gas. No shadowing stones are seen within the pancreatic duct. The liver is large measuring 21.4 cm in length. Echogenicity appears mildly increased. No focal hepatic lesion is seen. There does appear to be moderate intrahepatic biliary dilatation. There is certainly extrahepatic biliary dilatation with the common bile duct measuring 2.4 cm in diameter. No stone is seen in the imaged portions of the common bile duct. The gallbladder wall is not thickened, but the gallbladder does appear distended, measuring 17 cm in length. No stones are seen in the gallbladder. No pericholecystic fluid is seen. Sonographic Vasquez's sign is not reported. The right kidney measures 12.7 cm in length. There is no hydronephrosis. No stones are seen. No free fluid is identified. IMPRESSION: 1. Marked extrahepatic and moderate intrahepatic biliary dilatation as well as pancreatic ductal dilatation. Findings are concerning for pancreatic malignancy, with distal choledocholithiasis in the differential. Consider endoscopic ultrasound to further evaluate. 2. Hepatomegaly with hepatic steatosis. Dictated by: Dictated on workstation # [id number]
[2020-12-01] MEDS ORDERED: CATHETER FLUSH 10 ML SYR IV PRN (18:30)
[2020-12-01] MEDS ORDERED: NS 100 ML (IVPB) BAG IV ONE (18:30)
[2020-12-01] MEDS ORDERED: IOHEXOL 350 MG/ML 100 ML (OMNIPAQUE 350) VIAL IV ONE (18:30)
[2020-12-01] MEDS ORDERED: HOLD METFORMIN - RECEIVED CONTRAST 20 ML VIAL IV SCH (18:30)
--- NOTE | 2020-12-01 18:55 | Diagnostic Imaging Report ---
PROCEDURE: CT abdomen and pelvis with contrast. TECHNIQUE: Multiple contiguous axial images were obtained through the abdomen and pelvis after administration of intravenous contrast. Auto Exposure Controls were utilized during the CT exam to meet ALARA standards for radiation dose reduction. All CT scans use one or more of the following dose optimizing techniques: automated exposure control, MA and/or KvP adjustment based on patient size and exam type or iterative reconstruction. INDICATION: Gallstone pancreatitis. COMPARISON: Gallbladder ultrasound 12/01/2020. CT lumbar spine without contrast 11/25/2018. FINDINGS: Lung bases are clear. Prominent common bile duct measures up to 1.5 cm in diameter. No definite obstructing lesion is identified. There is some mild low attenuation within the head of the pancreas without a discrete mass identified. There is a well-circumscribed cystic-appearing nodule in the tail of the pancreas measuring up 1.5 cm. The main pancreatic duct measures up to 0.6 cm in diameter. Distended gallbladder with mild intrahepatic biliary ductal dilatation. No mass is seen within the liver. Multiple nodules in the left adrenal gland measuring up to 2.3 x 1.8 cm. These appear similar to the 11/25/2018 noncontrast exam. No lymphadenopathy. No free intraperitoneal air or fluid. No evidence of bowel obstruction. No acute osseous finding. Moderate spondylotic changes in the visualized spine. IMPRESSION: 1. Again seen is a dilated common bile duct, distended gallbladder, intrahepatic biliary ductal dilatation and dilated main pancreatic duct. No definite obstructing lesion is identified. There is some indeterminate ill-defined hypoattenuation in the pancreatic head which could represent an underlying mass. There is also a cystic-appearing nodule in the tail of the pancreas measuring up 1.5 cm. Recommend dedicated MRI of the abdomen without and with IV contrast. No gallstone or choledocholithiasis is identified. 2. Multiple indeterminate left adrenal nodules appear stable compared to the noncontrast CT from 11/25/2017. Although these most likely represent benign adenomas, they could also be better characterized with MRI. Dictated by: Dictated on workstation # [id number]
[2020-12-01] MEDS ORDERED: LORazepam INJ 2 MG/ML (ATIVAN) VIAL IVP PRN ×2 (19:45→21:45)
[2020-12-01 20:58] VITALS: BP 130/60
== END 2020-12-01 21:59 | disposition short-term general hospital (02) ==
LOC: EDUNIT# 16:49 → ER 16:51
DX: K83.1 Obstruction of bile duct (principal); E87.6 Hypokalemia; E11.9 Type 2 diabetes mellitus without complications; I10 Essential (primary) hypertension; G47.30 Sleep apnea, unspecified; I48.91 Unspecified atrial fibrillation; E66.9 Obesity, unspecified; Z68.43 Body mass index [BMI] 50.0-59.9, adult; Z20.822 Contact with and (suspected) exposure to COVID-19
CPT/HCPCS: 36415; 74177; 76705; 83735; 83880; 87636

== ENCOUNTER → 2020-12-01 | Outpatient (CLI) | payer BC ==
[2020-12-01 14:38] LABS: HEMATOCRIT 42 % (35-52); MEAN CORPUSCULAR HEMOGLOBIN 28 pg (25-34); MEAN CORPUSCULAR VOLUME 83 fL (80-99); WHITE BLOOD COUNT 10.2 10^3/uL (4.3-11.0)
[2020-12-01 14:39] LABS: BASOPHILS % (AUTO) 1 % (0-10); LYMPHOCYTES % (AUTO) 20 % (12-44); MEAN CORPUSCULAR HGB CONC 34 g/dL (32-36); MEAN PLATELET VOLUME 12.5 fL (9.0-12.2); MONOCYTES % (AUTO) 9 % (0-12); NEUTROPHILS % (AUTO) 69 % (42-75); PLATELET COUNT 204 10^3/uL (130-400)
[2020-12-01 14:40] LABS: BASOPHILS # (AUTO) 0.1 10^3/uL (0.0-0.1); EOSINOPHILS # (AUTO) 0.3 10^3/uL (0.0-0.3); EOSINOPHILS % (AUTO) 2 % (0-10); MONOCYTES # (AUTO) 0.9 X 10^3 (0.0-1.0)
[2020-12-01 15:04] LABS: CREATININE SERUM 0.88 MG/DL (0.60-1.30); POTASSIUM 2.8 MMOL/L (3.6-5.0)
[2020-12-01 15:05] LABS: CALCIUM 9.7 MG/DL (8.5-10.1); INR 1.1 (0.8-1.4)
[2020-12-01 15:08] LABS: ALBUMIN 4.2 GM/DL (3.2-4.5); BILIRUBIN,TOTAL 11.7 MG/DL (0.1-1.0); TOTAL PROTEIN 7.7 GM/DL (6.4-8.2)
[2020-12-04 14:08] LABS: HEPATITIS C ANTIBODY C Non-Reactive (Non-Reactive)
== END ==
LOC: LAB FS 14:01
PROVIDERS: ATTEND Family Medicine
DX: R17 Unspecified jaundice (principal); R10.9 Unspecified abdominal pain; R19.7 Diarrhea, unspecified
CPT/HCPCS: 36415; 80053; 80074; 83690; 85025; 85610

== ENCOUNTER → 2021-07-10 | Outpatient (CLI) | payer BC | LOC: LABNPT 15:02 | PROVIDERS: ATTEND Registered Nurse Emergency | DX: J44.1 Chronic obstructive pulmonary disease with (acute) exacerbation (principal); A08.4 Viral intestinal infection, unspecified; R50.9 Fever, unspecified; Z20.822 Contact with and (suspected) exposure to COVID-19 | CPT/HCPCS: 87636 ==

== ENCOUNTER → 2021-07-10 | Outpatient (CLI) | payer BC ==
[2021-07-10 10:07] LABS: BASOPHILS % (AUTO) 0 % (0-10); EOSINOPHILS % (AUTO) 0 % (0-10); HEMATOCRIT 31 % (35-52); HEMOGLOBIN 10.5 g/dL (11.5-16.0); LYMPHOCYTES # (AUTO) 1.4 10^3/uL (1.0-4.0); LYMPHOCYTES % (AUTO) 36 % (12-44); MEAN CORPUSCULAR HEMOGLOBIN 27 pg (25-34); MEAN CORPUSCULAR HGB CONC 34 g/dL (32-36); MEAN CORPUSCULAR VOLUME 78 fL (80-99); MEAN PLATELET VOLUME 10.8 fL (9.0-12.2); MONOCYTES # (AUTO) 0.4 10^3/uL (0.0-1.0); MONOCYTES % (AUTO) 9 % (0-12); NEUTROPHILS % (AUTO) 53 % (42-75); PLATELET COUNT 101 10^3/uL (130-400); WHITE BLOOD COUNT 3.8 10^3/uL (4.3-11.0)
[2021-07-10 11:06] LABS: CALCIUM 8.8 MG/DL (8.5-10.1); CREATININE SERUM 0.96 MG/DL (0.60-1.30); POTASSIUM 2.9 MMOL/L (3.6-5.0)
[2021-07-10 11:07] LABS: ALBUMIN 3.8 GM/DL (3.2-4.5); BILIRUBIN,TOTAL 1.2 MG/DL (0.1-1.0); TOTAL PROTEIN 6.7 GM/DL (6.4-8.2)
--- NOTE | 2021-07-10 11:16 | Diagnostic Imaging Report ---
INDICATION: Shortness of breath and cough. FINDINGS: Frontal and lateral views of the chest demonstrate stable Port-A-Cath and left-sided loop recorder. The lungs are clear. The heart is normal. There is no pneumothorax or effusion. Osseous structures are stable. IMPRESSION: Negative chest. Dictated by: Dictated on workstation # [id number]
[2021-07-10 11:18] LABS: ATYPICAL LYMPHOCYTES 8 %; BAND NEUTROPHILS 5 %; BASOPHILS % (MANUAL) 0 %; EOSINOPHILS % (MANUAL) 0 %; LYMPHOCYTES % (MANUAL) 29 %; MONOCYTES % (MANUAL) 13 %; NEUTROPHILS % (MANUAL) 45 %; NUCLEATED RED BLOOD CELLS 1
[2021-07-10 11:32] LABS: HYPOCHROMASIA 1+; MICROCYTOSIS 2+; PLATELET ESTIMATE DECREASED
[2021-07-10 11:33] LABS: POIKILOCYTOSIS SLIGHT
== END ==
LOC: RAD FS 09:29
PROVIDERS: ATTEND Registered Nurse Emergency
DX: R05.1 Acute cough (principal); R06.02 Shortness of breath
CPT/HCPCS: 36415; 71046; 80053; 85007; 85027

== ENCOUNTER → 2021-10-11 | Outpatient (CLI) | payer BC | LOC: LABNPT 14:28 | PROVIDERS: ATTEND Family Medicine | DX: L08.9 Local infection of the skin and subcutaneous tissue, unspecified (principal); L97.509 Non-pressure chronic ulcer of other part of unspecified foot with unspecified severity | CPT/HCPCS: 87070; 87077; 87205 ==

== ENCOUNTER → 2021-10-11 | Outpatient (CLI) | payer BC ==
[2021-10-11 11:10] LABS: BASOPHILS % (AUTO) 0 % (0-10); EOSINOPHILS # (AUTO) 0.2 10^3/uL (0.0-0.3); EOSINOPHILS % (AUTO) 2 % (0-10); HEMATOCRIT 34 % (35-52); HEMOGLOBIN 10.1 g/dL (11.5-16.0); LYMPHOCYTES # (AUTO) 1.8 10^3/uL (1.0-4.0); LYMPHOCYTES % (AUTO) 27 % (12-44); MEAN CORPUSCULAR HEMOGLOBIN 23 pg (25-34); MEAN CORPUSCULAR HGB CONC 30 g/dL (32-36); MEAN CORPUSCULAR VOLUME 77 fL (80-99); MEAN PLATELET VOLUME 10.8 fL (9.0-12.2); MONOCYTES # (AUTO) 1.1 10^3/uL (0.0-1.0); MONOCYTES % (AUTO) 16 % (0-12); NEUTROPHILS # (AUTO) 3.6 10^3/uL (1.8-7.8); NEUTROPHILS % (AUTO) 54 % (42-75); PLATELET COUNT 327 10^3/uL (130-400); WHITE BLOOD COUNT 6.7 10^3/uL (4.3-11.0)
[2021-10-11 11:37] LABS: POTASSIUM 2.9 MMOL/L (3.6-5.0)
[2021-10-11 11:38] LABS: ALBUMIN 3.7 GM/DL (3.2-4.5); BILIRUBIN,TOTAL 0.6 MG/DL (0.1-1.0); CALCIUM 8.8 MG/DL (8.5-10.1); CREATININE SERUM 0.78 MG/DL (0.60-1.30); TOTAL PROTEIN 7.6 GM/DL (6.4-8.2)
[2021-10-11 11:51] LABS: ANISOCYTOSIS SLIGHT; BAND NEUTROPHILS 3 %; BASOPHILS % (MANUAL) 0 %; EOSINOPHILS % (MANUAL) 6 %; HYPOCHROMASIA SLIGHT; LYMPHOCYTES % (MANUAL) 19 %; METAMYELOCYTES % 1 %; MONOCYTES % (MANUAL) 16 %; NEUTROPHILS % (MANUAL) 55 %
--- NOTE | 2021-10-11 15:47 | Diagnostic Imaging Report ---
INDICATION: Diabetic ulcer of great toe. FINDINGS: There is a destructive bony erosion of the distal phalanx especially the tuft. There is advanced arthritic change along the interphalangeal joint without definite bony destruction. MP joint shows moderate arthritic changes without distraction. No definite air seen in the soft tissues. IMPRESSION: Destructive bony erosion of the distal 1st digit. These findings are consistent with osteomyelitis changes. Dictated by: Dictated on workstation # [id number]
== END ==
LOC: LAB FS 10:51
PROVIDERS: ATTEND Registered Nurse Emergency
DX: L97.509 Non-pressure chronic ulcer of other part of unspecified foot with unspecified severity (principal)
CPT/HCPCS: 36415; 73660; 80053; 83735; 85007; 85027; 86141

== ENCOUNTER → 2021-10-11 | Outpatient (CLI) | payer BC | LOC: WOUNDCARE 12:11 | PROVIDERS: ATTEND Family Medicine | DX: L97.526 Non-pressure chronic ulcer of other part of left foot with bone involvement without evidence of necrosis (principal); L03.032 Cellulitis of left toe; E11.621 Type 2 diabetes mellitus with foot ulcer; R26.89 Other abnormalities of gait and mobility; E66.01 Morbid (severe) obesity due to excess calories; I89.0 Lymphedema, not elsewhere classified; E87.6 Hypokalemia; D64.9 Anemia, unspecified; C25.3 Malignant neoplasm of pancreatic duct; E11.40 Type 2 diabetes mellitus with diabetic neuropathy, unspecified; E11.65 Type 2 diabetes mellitus with hyperglycemia | CPT/HCPCS: 36415; 82306; 82607; 82746; 83036; 85652; 87070; 87205; A6260; G0463; 87077; 99212 ==

== ENCOUNTER 2022-10-30 11:01 | Outpatient (RCR) | payer BC, MEDICAID | END 2022-10-31 | disposition home or self-care (01) | LOC: ONC 11:01 | PROVIDERS: ATTEND Radiology Radiation Oncology | DX: C25.0 Malignant neoplasm of head of pancreas (principal); E11.621 Type 2 diabetes mellitus with foot ulcer; L97.509 Non-pressure chronic ulcer of other part of unspecified foot with unspecified severity; B35.1 Tinea unguium; E11.40 Type 2 diabetes mellitus with diabetic neuropathy, unspecified; J44.9 Chronic obstructive pulmonary disease, unspecified; M17.0 Bilateral primary osteoarthritis of knee | CPT/HCPCS: 99205 ==

== ENCOUNTER → 2022-11-13 | Outpatient (CLI) | payer MEDICAID ==
[2022-11-13 13:26] LABS: BASOPHILS # (AUTO) 0.1 10^3/uL (0.0-0.1); BASOPHILS % (AUTO) 1 % (0-10); MEAN CORPUSCULAR HEMOGLOBIN 22 pg (25-34); MEAN CORPUSCULAR HGB CONC 29 g/dL (32-36); MEAN CORPUSCULAR VOLUME 76 fL (80-99)
[2022-11-13 13:28] LABS: EOSINOPHILS # (AUTO) 0.2 10^3/uL (0.0-0.3); EOSINOPHILS % (AUTO) 2 % (0-10); HEMATOCRIT 37 % (35-52); HEMOGLOBIN 10.7 g/dL (11.5-16.0); LYMPHOCYTES % (AUTO) 28 % (12-44); MONOCYTES % (AUTO) 14 % (0-12); NEUTROPHILS # (AUTO) 4.1 10^3/uL (1.8-7.8); NEUTROPHILS % (AUTO) 55 % (42-75); PLATELET COUNT 175 10^3/uL (130-400); WHITE BLOOD COUNT 7.4 10^3/uL (4.3-11.0)
[2022-11-13 13:52] LABS: ALBUMIN 3.6 GM/DL (3.2-4.5); BILIRUBIN,TOTAL 0.9 MG/DL (0.1-1.0); CALCIUM 8.5 MG/DL (8.5-10.1); CREATININE SERUM 1.09 MG/DL (0.60-1.30); POTASSIUM 3.2 MMOL/L (3.6-5.0); TOTAL PROTEIN 7.6 GM/DL (6.4-8.2)
== END ==
LOC: LAB 01:10
PROVIDERS: ATTEND Internal Medicine
DX: C25.9 Malignant neoplasm of pancreas, unspecified (principal)
CPT/HCPCS: 36415; 80053; 85025

== ENCOUNTER 2022-11-26 12:53 | Outpatient (RCR) | payer MEDICAID ==
[2022-11-26 13:05] LABS: ALBUMIN 3.4 GM/DL (3.2-4.5); BASOPHILS % (AUTO) 0 % (0-10); EOSINOPHILS # (AUTO) 0.3 10^3/uL (0.0-0.3); EOSINOPHILS % (AUTO) 6 % (0-10); HEMATOCRIT 35 % (35-52); HEMOGLOBIN 10.8 g/dL (11.5-16.0); LYMPHOCYTES # (AUTO) 0.6 10^3/uL (1.0-4.0); LYMPHOCYTES % (AUTO) 14 % (12-44); MEAN CORPUSCULAR HEMOGLOBIN 23 pg (25-34); MEAN CORPUSCULAR HGB CONC 31 g/dL (32-36); MEAN CORPUSCULAR VOLUME 75 fL (80-99); MONOCYTES # (AUTO) 0.8 10^3/uL (0.0-1.0); MONOCYTES % (AUTO) 18 % (0-12); NEUTROPHILS # (AUTO) 2.8 10^3/uL (1.8-7.8); NEUTROPHILS % (AUTO) 61 % (42-75); POTASSIUM 3.3 MMOL/L (3.6-5.0); WHITE BLOOD COUNT 4.5 10^3/uL (4.3-11.0)
[2022-11-26 13:06] LABS: CALCIUM 8.4 MG/DL (8.5-10.1)
[2022-11-26 13:07] LABS: TOTAL PROTEIN 6.9 GM/DL (6.4-8.2)
[2022-11-26 13:09] LABS: BILIRUBIN,TOTAL 0.9 MG/DL (0.1-1.0)
[2022-11-26 13:10] LABS: PLATELET COUNT 117 10^3/uL (130-400)
[2022-11-26 13:11] LABS: CREATININE SERUM 0.95 MG/DL (0.60-1.30)
== END 2022-11-30 | disposition home or self-care (01) ==
LOC: LAB 12:53 → EDSTATUS 12:53
PROVIDERS: ATTEND Internal Medicine
DX: C25.9 Malignant neoplasm of pancreas, unspecified (principal)
CPT/HCPCS: 36415; 80053; 85025

== ENCOUNTER 2022-11-29 12:19 | Outpatient (RCR) | payer MEDICAID | END 2022-11-30 | disposition home or self-care (01) | LOC: ONC 12:19 | PROVIDERS: ATTEND Radiology Radiation Oncology | DX: Z51.0 Encounter for antineoplastic radiation therapy (principal); C25.0 Malignant neoplasm of head of pancreas; E11.621 Type 2 diabetes mellitus with foot ulcer; L97.509 Non-pressure chronic ulcer of other part of unspecified foot with unspecified severity; B35.1 Tinea unguium; E11.40 Type 2 diabetes mellitus with diabetic neuropathy, unspecified; J44.9 Chronic obstructive pulmonary disease, unspecified; M17.0 Bilateral primary osteoarthritis of knee | CPT/HCPCS: 77293; 77300; 77301; 77334; 77336; 77338; 77386; 77470 ==

== ENCOUNTER 2022-12-03 20:00 | Inpatient (IN) | payer MEDICAID ==
[~2022-12-03] VITALS: Ht 167.7 cm; Wt 113.0 kg
[2022-12-03] VITALS: BP 129/67
--- NOTE | 2022-12-03 20:26 | ED Cough/URI ---
General Chief Complaint: COVID19 Suspect/Confirmed Stated Complaint: COVID +, VOMITING, DIAREHHA, NO APPETITE Nursing Triage Note: diag with covid friday, symptoms started . vomitting, diarrhea, cough. sob. Source: patient Exam Limitations: no limitations History of Present Illness Date Seen by Provider: Dec 03, 2022 Time Seen by Provider: 20:23 Initial Comments Patient is a 62-year-old female with a history of pancreatic cancer currently on chemo and radiation, Whipple procedure, diabetes, asthma, A-fib currently on Eliquis who presents to ED with flulike symptoms. Symptoms started last . She was diagnosed with COVID on Friday. She has been having vomiting and diarrhea with generalized abdominal pain. Vomiting 3-4 times a day more phlegm. Loose stools that looked black. She denies Pepto-Bismol or history of anemia. She does take Eliquis. She reports left-sided chest pain shortness of breath with her cough. Patient states she was diagnosed with pneumonia earlier this month and treated with doxycycline. She states she feels dehydrated. She does follow with oncology at [facility] and receives radiation by Dr. Jarrett here in [place]. She states she has been running a low-grade temperature. It was recommended come to ED for further evaluation. Has not been able to eat. Decreased appetite. Allergies and Home Medications Allergies Coded Allergies: Penicillins (Verified Adverse Reaction, Mild, nausea, 11/25/18) Patient Home Medication List Home Medication List Reviewed: Yes Apixaban (Eliquis) 5 Mg Tablet, 5 MG PO BID, (Reported) Entered as Reported by: FRANSICO PARKER on 12/03/222354 Last Action: New Order Benzonatate (Benzonatate) 100 Mg Capsule, 200 MG PO TID PRN for COUGH, (Reported) Entered as Reported by: FRANSICO PARKER on 12/03/222354 Last Action: New Order Dapagliflozin Propanediol (Farxiga) 10 Mg Tablet, 10 MG PO DAILY, (Reported) Entered as Reported by: FRANSICO PARKER on 12/03/222354 Last Action: New Order Duloxetine HCl (Duloxetine HCl) 30 Mg Capsule.dr, 30 MG PO DAILY, (Reported) Entered as Reported by: FRANSICO PARKER on 12/03/222354 Last Action: New Order Escitalopram Oxalate (Escitalopram Oxalate) 20 Mg Tablet, 20 MG PO DAILY, (Reported) Entered as Reported by: FRANSICO PARKER on 12/03/222354 Last Action: New Order Fluticasone Propionate (Fluticasone Propionate) 50 Mcg/Actuation [place].susp, (Reported) Entered as Reported by: FRANSICO PARKER on 12/03/222354 Last Action: New Order Ibuprofen (Ibuprofen) 800 Mg Tablet, 800 MG PO Q8H PRN for PAIN Prescribed by: TYRA CELIS on 11/25/18 130 Insulin Aspart (Novolog Flexpen) 100 Unit/Ml (3 Ml) Solution, SQ, (Reported) Entered as Reported by: FRANSICO PARKER on 12/03/222354 Last Action: New Order Insulin Detemir (Levemir Flexpen) 100 Unit/Ml (3 Ml) Insuln.pen, 30 UNITS SQ HS, (Reported) Entered as Reported by: FRANSICO PARKER on 12/03/222354 Last Action: New Order Levothyroxine Sodium (Euthyrox) 100 Mcg Tablet, 100 MCG PO DAILY, (Reported) Entered as Reported by: FRANSICO PARKER on 12/03/222354 Last Action: New Order Lipase/Protease/Amylase (Creon Dr 36,000 Units Capsule) 36K-114K Capsule.dr, 4 TAB PO AC, (Reported) Entered as Reported by: FRANSICO PARKER on 12/03/222354 Last Action: New Order Mirtazapine (Mirtazapine) 30 Mg Tablet, 30 MG PO HS, (Reported) Entered as Reported by: FRANSICO PARKER on 12/03/222354 Last Action: New Order Omeprazole (Omeprazole) 40 Mg Capsule.dr, 40 MG PO DAILY, (Reported) Entered as Reported by: FRANSICO PARKER on 12/03/222354 Last Action: New Order Ondansetron (Ondansetron Odt) 8 Mg Tab.rapdis, 8 MG PO BID, (Reported) Entered as Reported by: FRANSICO PARKER on 12/03/222354 Last Action: New Order Oxycodone HCl/Acetaminophen (Percocet 5-325 mg Tablet) 1 Each Tablet, 1 TAB PO Q6H PRN for PAIN-MODERATE Prescribed by: TYRA CELIS on 11/25/18 1302 Potassium Chloride (Potassium Chloride) 20 Meq Tab.er.prt, 20 MEQ PO BID, (Reported) Entered as Reported by: FRANSICO PARKER on 12/03/222354 Last Action: New Order Rosuvastatin Calcium (Rosuvastatin Calcium) 20 Mg Tablet, 20 MG PO DAILY, (Reported) Entered as Reported by: FRANSICO PARKER on 12/03/222354 Last Action: New Order Torsemide (Torsemide) 20 Mg Tablet, 40 MG PO DAILY PRN for aPTT, (Reported) Entered as Reported by: FRANSICO PARKER on 12/03/222354 Last Action: New Order Review of Systems Review of Systems Constitutional: No chills; fever, malaise EENTM: No ear pain, No blurred vision Respiratory: cough, short of breath Cardiovascular: chest pain Gastrointestinal: abdominal pain, diarrhea, nausea, vomiting Musculoskeletal: No back pain; joint pain, muscle pain, muscle stiffness Skin: No change in color All Other Systems Reviewed Negative Unless Noted: Yes Past Lkejizc-Feytrc-Hlpmhs Hx Seasonal Allergies Seasonal Allergies: No Past Medical History Appendectomy, Cardiac, Orthopedic Respiratory: No Cardiac: Yes Atrial Fibrillation Neurological: No Genitourinary: No Gastrointestinal: No Musculoskeletal: No Diabetes, Insulin dep HEENT: No Cancer: No Psychosocial: No Integumentary: No Blood Disorders: No Physical Exam Vital Signs - First Documented 12/03/22 12/03/22 00:00 20:18 Temp 38.2 Pulse 70 Resp 24 B/P (MAP) 129/67 (87) Pulse Ox 99 O2 Delivery Room Air Capillary Refill : Less Than 3 Seconds Height: '" Weight: lbs. oz. kg; 34.00 BMI Method: General Appearance: WD/WN, no apparent distress Eyes: Bilateral Eye Normal Inspection, Bilateral Eye PERRL, Bilateral Eye EOMI HEENT: PERRL/EOMI, normal ENT inspection, TMs normal, pharynx normal Neck: non-tender, full range of motion, supple Respiratory: no respiratory distress, wheezing Cardiovascular: regular rate, rhythm, no edema, no gallop Gastrointestinal: normal bowel sounds, soft, no organomegaly, tenderness (Generalized tenderness) Extremities: normal range of motion, non-tender, normal inspection, no pedal edema Neurologic/Psychiatric: lockstitch waistline joiner II-XII nml as tested, no motor/sensory deficits, alert, normal mood/affect, oriented x 3 Skin: normal color, warm/dry Focused Exam Lactate Level 12/03/22 20:29: Lactic Acid Level 1.05 Lactic Acid Level Laboratory Tests Test 12/03/22 20:29 Lactic Acid Level 1.05 MMOL/L (0.50-2.00) Progress/Results/Core Measures Suspected Sepsis SIRS Temperature: Pulse: 70 Respiratory Rate: 24 Laboratory Tests 12/03/22 20:29: White Blood Count 3.3L Blood Pressure 142 /86 Mean: 104 12/03/22 20:29: Lactic Acid Level 1.05 Laboratory Tests 12/03/22 20:29: Creatinine 0.80, INR Comment 1.5H, Platelet Count 55L, Total Bilirubin 0.9 Results/Orders Lab Results Laboratory Tests Test 12/03/22 20:29 12/03/22 20:37 12/03/22 20:56 Range/Units White Blood Count 3.3 L 4.3-11.0 10^3/uL Red Blood Count 4.61 3.80-5.11 10^6/uL Hemoglobin 10.9 L 11.5-16.0 g/dL Hematocrit 36 35-52 % Mean Corpuscular Volume 77 L 80-99 fL Mean Corpuscular Hemoglobin 24 L 25-34 pg Mean Corpuscular Hemoglobin Concent 31 L 32-36 g/dL Red Cell Distribution Width 28.5 H 10.0-14.5 % Platelet Count 55 L 130-400 10^3/uL Mean Platelet Volume 9.0-12.2 fL Immature Granulocyte % (Auto) 0 % Neutrophils (%) (Auto) 62 42-75 % Lymphocytes (%) (Auto) 20 12-44 % Monocytes (%) (Auto) 14 H 0-12 % Eosinophils (%) (Auto) 3 0-10 % Basophils (%) (Auto) 0 0-10 % Neutrophils # (Auto) 2.0 1.8-7.8 10^3/uL Lymphocytes # (Auto) 0.7 L 1.0-4.0 10^3/uL Monocytes # (Auto) 0.5 0.0-1.0 10^3/uL Eosinophils # (Auto) 0.1 0.0-0.3 10^3/uL Basophils # (Auto) 0.0 0.0-0.1 10^3/uL Immature Granulocyte # (Auto) 0.0 0.0-0.1 10^3/uL Percent Immature Platelet Fraction 12.1 H 0.0-7.6 % Prothrombin Time 18.1 H 12.2-14.7 SEC INR Comment 1.5 H 0.8-1.4 Activated Partial Thromboplast Time 39 H 24-35 SEC Sodium Level 139 135-145 MMOL/L Potassium Level 3.1 L 3.6-5.0 MMOL/L Chloride Level 112 H 98-107 MMOL/L Carbon Dioxide Level 16 L 21-32 MMOL/L Anion Gap 11 5-14 MMOL/L Blood Urea Nitrogen 6 L 7-18 MG/DL Creatinine 0.80 0.60-1.30 MG/DL Estimat Glomerular Filtration Rate 84 BUN/Creatinine Ratio 8 Glucose Level 105 70-105 MG/DL Lactic Acid Level 1.05 0.50-2.00 MMOL/L Calcium Level 8.0 L 8.5-10.1 MG/DL Corrected Calcium 8.5 8.5-10.1 MG/DL Magnesium Level 3.0 H 1.6-2.4 MG/DL Total Bilirubin 0.9 0.1-1.0 MG/DL Aspartate Amino Transf (AST/SGOT) 21 5-34 U/L Alanine Aminotransferase (ALT/SGPT) 12 0-55 U/L Alkaline Phosphatase 114 40-136 U/L Troponin I < 0.028 <0.028 NG/ML Total Protein 7.0 6.4-8.2 GM/DL Albumin 3.4 3.2-4.5 GM/DL Lipase < 4 L 8-78 U/L Glucometer 108 70-110 MG/DL Urine Color YELLOW Urine Clarity CLEAR Urine pH 7.0 5-9 Urine Specific [place] 1.010 L 1.016-1.022 Urine Protein TRACE H NEGATIVE Urine Glucose (UA) 3+ H NEGATIVE Urine Ketones NEGATIVE NEGATIVE Urine Nitrite NEGATIVE NEGATIVE Urine Bilirubin NEGATIVE NEGATIVE Urine Urobilinogen 2.0 < = 1.0 MG/DL Urine Leukocyte Esterase NEGATIVE NEGATIVE Urine RBC (Auto) TRACE H NEGATIVE Urine RBC 0-2 /HPF Urine WBC RARE /HPF Urine Squamous Epithelial Cells 0-2 /HPF Urine Crystals NONE /LPF Urine Bacteria TRACE /HPF Urine Casts NONE /LPF Urine Mucus NEGATIVE /LPF Urine Culture Indicated CULTURE PENDING My Orders Orders - ERIN YANG Cbc And Automated Diff (12/03/22 20:12) Comprehensive Metabolic Panel (12/03/22 20:12) Lipase (12/03/22 20:12) Magnesium (12/03/22 20:12) Blood Culture (12/03/22 20:21) Sputum Culture (12/03/22 20:21) Urinalysis (12/03/22 20:21) Urine Culture (12/03/22 20:21) Protime With Inr (12/03/22 20:21) Partial Thromboplastin Time (12/03/22 20:21) Chest 1 View, Ap/Pa Only (12/03/22 20:21) Ed Iv/Invasive Line Start (12/03/22 20:21) Troponin I Jorge (12/03/22 20:21) Vital Signs Adult Sepsis Patie Q15M (12/03/22 20:21) O2 (12/03/22 20:21) Lactic Acid Analyzer (12/03/22 20:21) Ns Iv 1000 Ml (Ns Iv 1000 Ml) (12/03/22 20:30) Cefepime Injection (Cefepime Injection) (12/03/22 20:30) Ekg Tracing (12/03/22 20:21) Dexamethasone Injection (Dexamethasone (12/03/22 20:30) Fentanyl Injection (Fentanyl Injection (12/03/22 20:27) Fentanyl Injection (Fentanyl Injection (12/03/22 20:28) Ns Iv 1000 Ml (Ns Iv 1000 Ml) (12/03/22 21:14) Fentanyl Injection (Fentanyl Injection (12/03/22 22:00) Medications Given in ED Vital Signs/I&O 12/03/22 12/03/22 00:00 20:18 Temp 38.2 Pulse 70 Resp 24 B/P (MAP) 129/67 (87) 142/86 (104) Pulse Ox 99 O2 Delivery Room Air Room Air Capillary Refill : Less Than 3 Seconds Blood Pressure Mean: 104 Departure Communication (PCP) Patient with a history of pancreatic cancer, diabetes, A-fib presents ED with cough, left-sided chest pain, dehydration with continuous vomiting and diarrhea. Patient does take Eliquis. Left sided Chest pain worse with deep inspiration. Denies history of cardiac stents. She was afebrile on arrival. She was not tachycardic. Blood pressure stable. Wheezing noted left lower lobe. History of asthma. Has been using breathing treatments at home without much improvement. Septic work-up was initiated. She was afebrile. Which she was not tachycardic. Generalized pain. She is currently on chemo and radiation for a history of pancreatic cancer diagnosed 3 years ago. Follows [facility] oncology and follows on oncology rad Dr. Ochoa. Patient requesting something for pain. Patient was started on cefepime concern for pneumonia. Had a postive covid swab on friday. She does report some abdominal pain as well. Diffuse tenderness. She also reports dark tarry stool. Refused Hemoccult test. Denies history of GI bleed. CBC showed white blood count 3.2, hemoglobin 10.9, platelets 55. Potassium 3.1. Normal kidney function and liver function. Troponin negative. Normal lactic acid. EKG showed sinus rhythm without evidence of ST elevation or depression. Chest x-ray concerning for left-sided pneumonia. She did receive 10 mg of IV Decadron. Refused breathing treatment. Urinalysis negative for infection. Patient does appear dry. Did receive a liter of fluid on arrival and a second liter of fluid. Patient received cefepime. Patient does not appear toxic but does appear ill. Due to to her extensive medical history patient will be admitted for IV fluids concern for dehydration and IV antibiotics for pneumonia. she was diagnosed with COVID on Friday. Patient received fentanyl for IV pain. She refused Hemoccult test. We will continue monitoring. She did receive 40 mg of Protonix. Monitor hemoglobin. Patient was discussed with Dr. Lomas who agreed to accept the patient. Maintenance fluids were added with potassium. IV Zofran for nausea. Tylenol for fever. Impression Primary Impression: COVID-19 Additional Impressions: Dehydration Hypokalemia Pneumonia Disposition: ADMITTED INPATIENT Condition: Stable Admissions Decision to Admit Reason: Admit from ER (General) Decision to Admit/Date: Dec 03, 2022 Time/Decision to Admit Time: 21:21 Departure-Patient Inst. Referrals: LES BETHEA MD (PCP/Family) Primary Care Physician ERIN YANG Dec 03, 2022 20:26
[2022-12-03] MEDS ORDERED: fentaNYL INJECTION 100 MCG/2 ML VIAL IVP STA (20:27)
[2022-12-03] MEDS ORDERED: fentaNYL INJECTION 100 MCG/2 ML VIAL ONE (20:28)
[2022-12-03] MEDS ORDERED: CEFEPIME INJECTION 1,000 MG in NS (IVPB) 50 ML 50 ML IV ONE (20:30)
[2022-12-03] MEDS ORDERED: NS IV 1000 ML 1,000 ML IV SCH (20:30)
[2022-12-03] MEDS ORDERED: dexAMETHasone INJ 10 MG/ML 1 ML VIAL IV ONE (20:30)
[2022-12-03 20:39] LABS: BASOPHILS % (AUTO) 0 % (0-10); EOSINOPHILS # (AUTO) 0.1 10^3/uL (0.0-0.3); MEAN CORPUSCULAR VOLUME 77 fL (80-99)
[2022-12-03 20:41] LABS: EOSINOPHILS % (AUTO) 3 % (0-10); HEMATOCRIT 36 % (35-52); HEMOGLOBIN 10.9 g/dL (11.5-16.0); LYMPHOCYTES # (AUTO) 0.7 10^3/uL (1.0-4.0); LYMPHOCYTES % (AUTO) 20 % (12-44); MEAN CORPUSCULAR HEMOGLOBIN 24 pg (25-34); MEAN CORPUSCULAR HGB CONC 31 g/dL (32-36); MONOCYTES # (AUTO) 0.5 10^3/uL (0.0-1.0); MONOCYTES % (AUTO) 14 % (0-12); NEUTROPHILS % (AUTO) 62 % (42-75); PLATELET COUNT 55 10^3/uL (130-400); WHITE BLOOD COUNT 3.3 10^3/uL (4.3-11.0)
[2022-12-03 21:01] LABS: ALANINE AMINOTRANSFERASE 12 U/L (0-55); ALBUMIN 3.4 GM/DL (3.2-4.5); ALKALINE PHOSPHATASE 114 U/L (40-136); BILIRUBIN,TOTAL 0.9 MG/DL (0.1-1.0); BUN/CREATININE RATIO 8; CARBON DIOXIDE 16 MMOL/L (21-32); CHLORIDE 112 MMOL/L (98-107); GFR ESTIMATED 84; GLUCOSE 105 MG/DL (70-105); LIPASE < 4 U/L (8-78); POTASSIUM 3.1 MMOL/L (3.6-5.0); SODIUM 139 MMOL/L (135-145)
[2022-12-03 21:04] LABS: INR 1.5 (0.8-1.4); PROTHROMBIN TIME PATIENT 18.1 SEC (12.2-14.7)
[2022-12-03] MEDS ORDERED: NS IV 1000 ML 1,000 ML IV STA (21:14)
[2022-12-03 21:25] LABS: BACTERIA,URINE TRACE /HPF; BILIRUBIN,URINE NEGATIVE (NEGATIVE); CLARITY,URINE CLEAR; COLOR,URINE YELLOW; GLUCOSE, URINE (UA) 3+ (NEGATIVE); KETONES,URINE NEGATIVE (NEGATIVE); LEUKOCYTE ESTERASE ,URINE NEGATIVE (NEGATIVE); NITRITE,URINE NEGATIVE (NEGATIVE); PROTEIN,URINE TRACE (NEGATIVE); RBC,URINE 0-2 /HPF; SQUAMOUS EPITHELIAL CELL,UR 0-2 /HPF; WBC,URINE RARE /HPF
--- NOTE | 2022-12-03 21:27 | Diagnostic Imaging Report ---
CHEST 1 VIEW, AP/PA ONLY Indication: Cough Comparison: 11/29/2022 Findings: Increased bandlike consolidation in the left midlung. No pleural effusion or pneumothorax. Stable cardiomegaly. Stable right IJ Port-A-Cath. Impression: 1. Increased left midlung zone bandlike opacities favor atelectasis. In the appropriate clinical setting, this could represent a focus of pneumonia. Dictated by: Dictated on workstation # [id number]
[2022-12-03] MEDS ORDERED: fentaNYL INJECTION 100 MCG/2 ML VIAL IVP ONE (22:00)
[2022-12-03] MEDS ORDERED: ACETAMINOPHEN 325 MG TABLET PO PRN (22:15)
[2022-12-03 22:24] VITALS: BP 129/67
[2022-12-03] MEDS ORDERED: PANTOPRAZOLE INJECTION 40 MG VIAL IV STA (22:30)
[2022-12-03] MEDS: NS + KCL 20 MEQ/L 1000 ML 1,000 ML IV SCH (22:52)
[2022-12-03 23:04] VITALS: BP 129/67
[2022-12-03] MEDS: ONDANSETRON INJECTION 4 MG/2 ML (SDV) IV PRN (23:18)
[2022-12-03] MEDS: fentaNYL INJECTION 100 MCG/2 ML VIAL IV PRN (23:18)
[2022-12-03] MEDS ORDERED: LIPA1CAP67 PO (23:55)
[2022-12-03] MEDS ORDERED: DAPA10TA PO (23:55)
[2022-12-03] MEDS ORDERED: INSU100I14 SQ (23:55)
[2022-12-03] MEDS ORDERED: OMEP40CA6 PO (23:55)
[2022-12-03] MEDS ORDERED: BENZ-36 PO (23:55)
[2022-12-03] MEDS ORDERED: ROSU20TA73 PO (23:55)
[2022-12-03] MEDS ORDERED: ONDA8TAB13 PO (23:55)
[2022-12-03] MEDS ORDERED: POTA-179 PO (23:55)
[2022-12-03] MEDS ORDERED: DULO30CA49 PO (23:55)
[2022-12-03] MEDS ORDERED: FLUT16SP22 NSEACH (23:55)
[2022-12-03] MEDS ORDERED: MIRT-69 PO (23:55)
[2022-12-03] MEDS ORDERED: APIX5TAB PO (23:55)
[2022-12-03] MEDS ORDERED: ESCI20TA39 PO (23:55)
[2022-12-03] MEDS ORDERED: INSU100I88 SQ (23:55)
[2022-12-03] MEDS ORDERED: LEVO-130 PO (23:55)
[2022-12-03] MEDS ORDERED: TORS20TA3 PO (23:55)
[2022-12-04] VITALS (7 sets, daily range): BP systolic 99–129; BP diastolic 54–67
[2022-12-04] MEDS: CEFEPIME 1,000 MG/NS 50 ML IVPB IV SCH ×8 (03:07→20:19)
[2022-12-04] MEDS: fentaNYL INJECTION 100 MCG/2 ML VIAL IV PRN ×9 (03:37→23:56)
[2022-12-04 04:07] LABS: BASOPHILS % (AUTO) 0 % (0-10); EOSINOPHILS % (AUTO) 0 % (0-10); PLATELET COUNT 51 10^3/uL (130-400)
[2022-12-04 04:12] LABS: HEMATOCRIT 31 % (35-52); HEMOGLOBIN 9.7 g/dL (11.5-16.0); LYMPHOCYTES # (AUTO) 0.3 10^3/uL (1.0-4.0); LYMPHOCYTES % (AUTO) 18 % (12-44); MEAN CORPUSCULAR HEMOGLOBIN 24 pg (25-34); MEAN CORPUSCULAR HGB CONC 31 g/dL (32-36); MEAN CORPUSCULAR VOLUME 77 fL (80-99); MONOCYTES # (AUTO) 0.1 10^3/uL (0.0-1.0); MONOCYTES % (AUTO) 6 % (0-12); NEUTROPHILS # (AUTO) 1.1 10^3/uL (1.8-7.8); NEUTROPHILS % (AUTO) 76 % (42-75); WHITE BLOOD COUNT 1.5 10^3/uL (4.3-11.0)
[2022-12-04 04:24] LABS: CALCIUM 7.5 MG/DL (8.5-10.1); CREATININE SERUM 0.77 MG/DL (0.60-1.30); POTASSIUM 3.8 MMOL/L (3.6-5.0)
[2022-12-04] MEDS ORDERED: CATHETER FLUSH 10 ML SYR IV PRN (06:45)
[2022-12-04] MEDS: NS + KCL 20 MEQ/L 1000 ML 1,000 ML IV SCH ×2 (08:53→20:18)
[2022-12-04] MEDS ORDERED: NIRMATRELVIR/RITONAVIR (PAXLOVID) TABLET PO SCH (09:00)
[2022-12-04] MEDS ORDERED: PATIENT MAY USE OWN MED,SINGLE MED PO SCH (10:30)
[2022-12-04] MEDS: ONDANSETRON INJECTION 4 MG/2 ML (SDV) IV PRN ×2 (10:44→20:35)
[2022-12-04] MEDS: NIRMATRELVIR/RITONAVIR (PAXLOVID) TABLET PO SCH ×2 (10:44→20:22)
--- NOTE | 2022-12-04 10:53 | History & Physical-Hospitalist ---
History of Present Illness HPI/Chief Complaint Patient is 62-year-old female past medical history of pancreatic cancer currently on chemotherapy and radiation status post Whipple procedure as well, diabetes, asthma, atrial fibrillation on anticoagulation who presented to the emergency department due to flulike symptoms with nausea and vomiting. She reports that her symptoms started on November 28 and the next day she tested positive for COVID. She continued to feel worse and began having vomiting 3-4 times a day along with loose black stools. She has not been able to keep up with her oral intake either and feels quite dehydrated. She is also having some pain with her cough and a low-grade temperature. Given her chronic multiple medical conditions and dehydration she was admitted for further management. This morning she reports feeling about the same and that her nausea is still persistent. Source: patient Date Seen 12/04/22 Time Seen by a Provider: 09:00 Attending Physician Awilda Bethea MD PCP Admitting Physician: Lambert Lomas MD Attending Physician: Lambert Lomas MD Referring Physician Date of Admission Dec 03, 2022 at 22:03 Home Medications & Allergies Home Medications Reviewed patient Home Medication Reconciliation performed by pharmacy medication reconciliations valve technician and/or nursing. Patients Allergies have been reviewed. Allergies Allergies Coded Allergies Penicillins (Verified Adverse Reaction, Mild, nausea, 11/25/18) Past Jxlfsfp-Covrvu-Auhxgu Hx Immunizations Up To Date First/Initial COVID19 Vaccinat: 2020 Second COVID19 Vaccination Rudolph: 2020 Seasonal Allergies Seasonal Allergies: No Current Status Communicates: Verbally Primary Language: Senegalese Preferred Spoken Language: Senegalese Past Medical History Surgeries: Appendectomy, Cardiac, Orthopedic Atrial Fibrillation Diabetes, Insulin dep Pancreatic What Type of Treatment Did You: Chemotherapy, Radiation, Surgical Intervention Blood Disorders: No Family Medical History Reviewed Nursing Family Hx Review of Systems Constitutional: see HPI Physical Exam Physical Exam Vital Signs Vital Signs - First Documented 12/03/22 12/03/22 12/03/22 00:00 20:18 23:04 Temp 38.2 Pulse 70 Resp 24 B/P (MAP) 129/67 (87) Pulse Ox 99 O2 Delivery Room Air FiO2 21 Capillary Refill : Less Than 3 Seconds Height, Weight, BMI Height: '" Weight: lbs. oz. kg; 34.00 BMI Method: General Appearance: No Apparent Distress, Chronically ill, Obese Respiratory: No Accessory Muscle Use; No Rhonci; Wheezing Cardiovascular: Regular Rate, Rhythm, No Murmur Gastrointestinal: Normal Bowel Sounds, Soft Extremity: No Pedal Edema Neurologic/Psychiatric: Alert, Oriented x3 Results Results/Procedures Labs Laboratory Tests 12/03/22 20:29 12/04/22 03:40 12/05/22 04:20 Patient resulted labs reviewed. Imaging: Reviewed Imaging Report Imaging [facility] [place] NAME: ETHAN ORTIZ MED REC#: [id number] PT STATUS: REG ER : 1960 PHYSICIAN: ERIN YANG ADMIT DATE: 12/03/22/ER Signed Date of Exam:12/03/22 CHEST 1 VIEW, AP/PA ONLY CHEST 1 VIEW, AP/PA ONLY Indication: Cough Comparison: 11/29/2022 Findings: Increased bandlike consolidation in the left midlung. No pleural effusion or pneumothorax. Stable cardiomegaly. Stable right IJ Port-A-Cath. Impression: 1. Increased left midlung zone bandlike opacities favor atelectasis. In the appropriate clinical setting, this could represent a focus of pneumonia. Dictated by: Dictated on workstation # [id number] Dict: 12/03/222124 Trans: 12/03/222129 CECE [id number] Interpreted by: CHEPE DUENAS MD Electronically signed by: CHEPE DUENAS MD 12/03/222129 Assessment/Plan Admission Diagnosis Sepsis due to PNA and COVID Admission Status: Inpatient Order (span 2 midnights) Reason for Inpatient Admission: see below Assessment and Plan Sepsis due to PNA and COVID Immunocompromised on chemotherapy Pancreatic Cancer Start on Paxlovid if compatible with Chemo Continue Cefepime Await cultures Zofran for nausea Fentanyl for pain Spoke with the cancer center and they plan to resume radiation today Not on oxygen so no steroids indicated Anemia Reported dark stools FOBT + Hold eliquis PPI Spoke with dixon- recommends outpatient scope unless actively bleeding trend hgb IDDMII SSI Resume home insulin once med rec done Hypothyroidism Anxiety/Depression HLD Continue home meds when med rec done DVT ppx: SCDs only Copy Copies To 1: BETHEA,HARRIET MOSCOSO MD, MD Dec 04, 2022 10:53
--- NOTE | 2022-12-04 13:34 | Occupational Therapy Eval ---
OT Evaluation-General/PLF Medical Diagnosis Admission Date Dec 04, 2022 at 12:50 Medical Diagnosis: COVID Onset Date: Dec 04, 2022 Therapy Diagnosis Therapy Diagnosis: weakness Precautions Precautions/Isolations: Contact Isolation, Droplet Isolation Referral Referral Reason: Evaluation/Treatment Medical History Reviewed History: Yes Social History Home: Single Level Current Living Status: Significant Other (ex ) Entry Into Home: Ramp, Stairs With Railing 2 BR 1` BA ADL-Prior Level of Function SCALE: Activities may be completed with or without assistive devices. 2-Viogetxfak-ylwvecl completes the activity by him/herself with no assistance from a helper. 5-Set-up or Clean-up Assistance-helper sets up or cleans up; patient completes activity. [place] assists only prior to or following the activity. 4-Supervision or Touching Assistance-helper provides verbal cues and/or touching/steadying and/or contact guard assistance as patient completes activity. Assistance may be provided throughout the activity or intermittently. 3-Partial/Moderate Assistance-helper does LESS THAN HALF the effort. [place] lifts, holds or supports trunk or limbs, but provides less than half the effort. 2-Substantial/Maximal Assistance-helper does MORE THAN HALF the effort. [place] lifts or holds trunk or limbs and provides more than half the effort. 9-Fybasagml-ftaoag does ALL the effort. Patient does none of the effort to complete the activity. Or, the assistance of 2 or more helpers is required for the patient to complete the activity. If activity was not attempted, code reason: 7-Patient Refused. 9-Not Applicable-not attempted and the patient did not perform the activity before the current illness, exacerbation or injury. 10-Not Attempted due to Environmental Limitations-(lack of equipment, weather restraints, etc.). 88-Not Attempted due to Medical Conditions or Safety Concerns. Self Care: Independent Functional Cognition: Independent DME/Equipment: Tub/Shower Drive Self: Yes OT Current Status Subjective Agreeable to therapy Pain Numeric Pain Scale: 6 Location Body Site: Generalized Mental Status/Objective Patient Orientation: Person, Place, Time, Situation Current Glasses/Contacts: Yes Hearing Aids: No Dentures/Partials: No Hand Dominance: Right Upper Extremity ROM BUE ROM WFL Upper Extremity Coordination INTACT Upper Extremity Sensation Neuropathy for 3 years..since CANCER Upper Extremity Strength -/ ADL-Treatment Eating (QC): 6 Oral Hygiene (QC): 6 Shower/Bathe Self (QC): 7 Upper Body Dressing (QC): 6 Lower Body Dressing (QC): 6 On/Off Footwear (QC): 6 Toileting Hygiene (QC): 6 Patient demonstrates unsteady balance and low endurance, is able to perform ADLS independently, Patient usually uses a cane and furniture walks at home, while in hospital OT recommends asking for assistance d/t IV pole and lines increasing risk of falls. Education OT Patient Education: Exercise program, Modified ADL techniques, Progress toward Goal/Update tx plan, Purpose of tx/functional activities, Reviewed precautions, Rehab process, Safety issues, Transfer techniques, Use of adapted equipment Teaching Recipient: Patient Teaching Methods: Demonstration Response to Teaching: Return Demonstration OT Donor Services Team Leader Goals Retirement Goals 1=Demonstrate adherence to instructed precautions during ADL tasks. 2=Patient will verbalize/demonstrate understanding of assistive devices/modifications for ADL. 3=Patient will improve strength/tolerance for activity to enable patient to perform ADL's. OT Education/Plan Problem List/Assessment Assessment: No Skilled OT Needs ID'd Discharge Recommendations Plan/Recommendations: Discontinue OT Treatment Plan/Plan of Care Patient would benefit from OT for education, treatment and training to promote independence in ADL's, mobility, safety and/or upper extremity function for A DL's. Plan of Care: OTHER (eval only) Treatment Duration: Dec 04, 2022 Frequency: 1 time per week Estimated Hrs Per Day: .25 hour per day Rehab Potential: Good Time Start Time: 13:10 Stop Time: 13:32 DATE: Dec 04, 2022 Total Time Billed (hr/min): 22 Billed Treatment Time evm 22 min JOHANNA HENDERSON OT Dec 04, 2022 13:34
[2022-12-04] MEDS: CATHETER FLUSH 10 ML SYR IV SCH ×2 (14:08→20:23)
--- NOTE | 2022-12-04 14:09 | Physical Therapy Evaluation ---
PT Evaluation-General Medical Diagnosis Admission Date Dec 04, 2022 at 12:50 Medical Diagnosis: COVID Onset Date: Dec 04, 2022 Therapy Diagnosis Therapy Diagnosis: Gait Deficit, strength deficit Precautions Precautions/Isolations: Contact Isolation, Droplet Isolation, Fall Prevention Weight Bear Status Right Lower Extremity: Right Full Weight Bearing Left Lower Extremity: Left Full Weight Bearing Referral Physician: Dr. Patel Reason for Referral: Evaluation/Treatment Medical History Reviewed History: Yes Social History Home: Single Level Current Living Status: Significant Other (ex ) Entry Into Home: Ramp, Stairs With Railing Prior Prior Level of Function SCALE: Activities may be completed with or without assistive devices. 2-Nubdmehcma-ndsegwa completes the activity by him/herself with no assistance from a helper. 5-Set-up or Clean-up Assistance-helper sets up or cleans up; patient completes activity. [place] assists only prior to or following the activity. 4-Supervision or Touching Assistance-helper provides verbal cues and/or touching/steadying and/or contact guard assistance as patient completes activity. Assistance may be provided throughout the activity or intermittently. 3-Partial/Moderate Assistance-helper does LESS THAN HALF the effort. [place] lifts, holds or supports trunk or limbs, but provides less than half the effort. 2-Substantial/Maximal Assistance-helper does MORE THAN HALF the effort. [place] lifts or holds trunk or limbs and provides more than half the effort. 5-Vtdsiimbk-ocnsuw does ALL the effort. Patient does none of the effort to complete the activity. Or, the assistance of 2 or more helpers is required for the patient to complete the activity. If activity was not attempted, code reason: 7-Patient Refused. 9-Not Applicable-not attempted and the patient did not perform the activity before the current illness, exacerbation or injury. 10-Not Attempted due to Environmental Limitations-(lack of equipment, weather restraints, etc.). 88-Not Attempted due to Medical Conditions or Safety Concerns. Bed Mobility: 6 Transfers (B,C,W/C): 6 Gait: 6 Stairs: 6 Indoor Mobility (Ambulation): Independent Stairs: Independent Prior Devices Use: Other-see list below Prior Device Use: Cane PT Evaluation-Current Subjective Patient sitting in chair upon PT arrival, agreeable to treatment. Rates pain at 6/10 "all over". Objective Patient Orientation: Person, Place, Time, Situation Attachments: IV ROM/Strength ROM Lower Extremities WFLs BLEs all planes Strength Lower Extremities 3+/5 BLEs all planes Sensory Hand Dominance: Right Sensation Right Lower Extremit: Intact Sensation Left Lower Extremity: Intact Transfers Sit to Stand (QC): 4 Chair/Etb-nv-Bocim Xfer(QC): 4 Toilet Transfer (QC): 4 Gait Does the Patient Walk?: Yes Mode of Locomotion: Walk Anticipated Mode of Locomotion: Walk Walk 10 feet (QC): 4 Walk 50 ft with 2 Turns(QC): 4 Distance: 90' Gait Assistive Device: None Comments/Gait Description Used the IV pole for support Balance Sitting Static: Normal Sitting Dynamic: Normal Standing Static: Fair Standing Dynamic: Fair Assessment/Needs Patient tolerated evaluation well. Requires SBA for all observed transfers and gait. Patient ambulates 90 feet with no AD, but used an IV pole for support, with SBA/CGA and verbal cues for safety, progression and conservation of energy. Patient in BR with OT post PT treatment. Rehab Potential: Fair PT Long-Term Goals Long-Term Goals PT Long-Term Goals Time Frame: Dec 31, 2022 Roll Left & Right (QC): 6 Sit to Lying (QC): 6 Lying-Sitting on Side/Bed(QC): 6 Sit to Stand (QC): 6 Chair/Bpv-ul-Oxoyn Xfer(QC): 6 Toilet Transfer (QC): 6 Does the Patient Walk: Yes Walk 10 feet (QC): 6 Walk 50ft with 2 Turns (QC): 6 Walk 150 ft (QC): 6 PT Plan Problem List Problem List: Activity Tolerance, Functional Strength, Safety, Balance, Gait, Transfer, Bed Mobility, ROM Treatment/Plan Treatment Plan: Continue Plan of Care Treatment Plan: Bed Mobility, Education, Functional Activity Matthew, Functional Strength, Group Therapy, Gait, Safety, Therapeutic Exercise, Transfers Treatment Duration: Jan 25, 2023 Frequency: 5 times per week Patient and/or Family Agrees t: Yes Safety Risks/Education Patient Education: Gait Training, Transfer Techniques Teaching Recipient: Patient Teaching Methods: Demonstration, Discussion Response to Teaching: Verbalize Understanding, Return Demonstration Time Time In: 1321 Time Out: 1345 DATE: Dec 04, 2022 Total Billed Treatment Time: 24 Total Billed Treatment Visit, MILY BAILON JOHN A PT Dec 04, 2022 14:09
[2022-12-04] MEDS: RT-ALBUTEROL HFA 8.5 GM INHALER IH PRN ×2 (15:04→21:04)
[2022-12-04] MEDS ORDERED: POTA-169 PO (15:30)
[2022-12-04] MEDS ORDERED: MORP15TA PO (15:30)
[2022-12-04] MEDS ORDERED: TRAM50TA3 PO (15:30)
[2022-12-04] MEDS ORDERED: DRONABINOL PO (15:30)
[2022-12-04] MEDS ORDERED: LORA10TA7 PO (15:30)
[2022-12-04] MEDS ORDERED: ZOLP5TAB7 PO (15:30)
[2022-12-04] MEDS ORDERED: ALBU18HF2 INH (15:30)
[2022-12-04] MEDS ORDERED: PREG50CA66 PO (15:30)
[2022-12-04] MEDS ORDERED: INSU100I14 SQ (15:30)
[2022-12-04] MEDS ORDERED: NFCAPE500T PO (15:32)
[2022-12-04] MEDS: inSUlin ASPART 1 UNIT/0.01 ML (PER UNIT) SC SCH ×2 (16:35→21:44)
[2022-12-04] MEDS: CAPECITABINE 500 MG PO SCH (18:09)
[2022-12-04] MEDS: PANTOPRAZOLE INJECTION 40 MG VIAL IV SCH (20:19)
[2022-12-05] MEDS: fentaNYL INJECTION 100 MCG/2 ML VIAL IV PRN ×8 (03:21→21:27)
[2022-12-05] MEDS: CEFEPIME 1,000 MG/NS 50 ML IVPB IV SCH ×8 (03:21→21:25)
[2022-12-05 03:23] VITALS: BP 115/59
[2022-12-05] MEDS: NS + KCL 20 MEQ/L 1000 ML 1,000 ML IV SCH ×2 (04:15→14:29)
[2022-12-05] MEDS: ONDANSETRON INJECTION 4 MG/2 ML (SDV) IV PRN ×3 (04:15→22:21)
[2022-12-05] MEDS: CATHETER FLUSH 10 ML SYR IV SCH ×3 (04:22→21:27)
[2022-12-05 04:45] LABS: CALCIUM 7.6 MG/DL (8.5-10.1)
[2022-12-05 04:46] LABS: HEMATOCRIT 30 % (35-52); HEMOGLOBIN 8.8 g/dL (11.5-16.0); MEAN CORPUSCULAR HEMOGLOBIN 24 pg (25-34); MEAN CORPUSCULAR HGB CONC 30 g/dL (32-36); MEAN CORPUSCULAR VOLUME 79 fL (80-99); PLATELET COUNT 48 10^3/uL (130-400)
[2022-12-05 04:49] LABS: CREATININE SERUM 0.8 MG/DL (0.60-1.30)
[2022-12-05] MEDS: inSUlin ASPART 1 UNIT/0.01 ML (PER UNIT) SC SCH ×4 (05:06→21:26)
[2022-12-05 07:03] VITALS: BP 110/56
[2022-12-05] MEDS ORDERED: RT-ALBUTEROL SULF 2.5 MG/3 ML PRE-MIX VIAL INH PRN (07:45)
[2022-12-05] MEDS ORDERED: ZOLPIDEM 5 MG (AMBIEN) TAB PO PRN (07:45)
[2022-12-05] MEDS ORDERED: PREGABALIN 50 MG CAPSULE PO PRN (07:45)
[2022-12-05] MEDS: PANTOPRAZOLE INJECTION 40 MG VIAL IV SCH ×2 (08:02→21:25)
[2022-12-05] MEDS: CAPECITABINE 500 MG PO SCH ×2 (08:04→17:43)
[2022-12-05] MEDS: NIRMATRELVIR/RITONAVIR (PAXLOVID) TABLET PO SCH ×2 (08:05→21:28)
[2022-12-05] MEDS: POTASSIUM CHLORIDE 20 MEQ TABLET PO SCH ×3 (08:31→21:26)
[2022-12-05] MEDS: LORATADINE 10 MG TABLET PO SCH (08:31)
[2022-12-05] MEDS: CITALOPRAM 20 MG TABLET PO SCH (08:32)
[2022-12-05] MEDS ORDERED: ROSUVASTATIN 20 MG TABLET PO SCH (09:00)
[2022-12-05] MEDS: LEVOTHYROXINE 100 MCG TABLET PO SCH ×3 (09:00→10:20)
[2022-12-05] MEDS ORDERED: NON-FORMULARY MEDICATION 1 EA EA (Omeprazole 40 MG) PO SCH (09:00)
--- NOTE | 2022-12-05 09:11 | Progress Note - Hospitalist ---
Subjective HPI/CC On Admission Date Seen by Provider: Dec 05, 2022 Patient is 62-year-old female past medical history of pancreatic cancer currently on chemotherapy and radiation status post Whipple procedure as well, diabetes, asthma, atrial fibrillation on anticoagulation who presented to the emergency department due to flulike symptoms with nausea and vomiting. She reports that her symptoms started on November 28 and the next day she tested positive for COVID. She continued to feel worse and began having vomiting 3-4 times a day along with loose black stools. She has not been able to keep up with her oral intake either and feels quite dehydrated. She is also having some pain with her cough and a low-grade temperature. Given her chronic multiple medical conditions and dehydration she was admitted for further management. This morning she reports feeling about the same and that her nausea is still persistent. Subjective/Events-last exam Pt reports doing a little better today but still overall not feeling well. Pain stil an issue and fentanyl helping but not lasting long enough. Eating better. Had BM yesterday but is worried she is not having enough BMs. Also complains of left ear pain that has improved since she has been here. Focused Exam Lactate Level 12/03/22 20:29: Lactic Acid Level 1.05 Objective Exam Vital Signs Vital Signs Date Time Temp Pulse Resp B/P (MAP) Pulse Ox O2 Delivery O2 Flow Rate FiO2 12/05/22 08:00 97 Room Air 12/05/22 07:03 36.1 50 17 110/56 (74) 12/03/22 23:09 21 Capillary Refill : Less Than 3 Seconds General Appearance: No Apparent Distress Respiratory: Lungs Clear, No Accessory Muscle Use Cardiovascular: Regular Rate, Rhythm, No Murmur Neurologic/Psychiatric: Alert, Oriented x3 Results/Procedures Lab Laboratory Tests 12/05/22 04:20 Patient resulted labs reviewed. Imaging: Reviewed Imaging Report Assessment/Plan Assessment and Plan Assess & Plan/Chief Complaint Sepsis due to PNA and COVID Immunocompromised on chemotherapy Pancreatic Cancer Continue Paxlovid (confirmed with pharmacy no known interactions) Continue Cefepime Blood cultures NGTD and urine likely contaminated Zofran for nausea Fentanyl for pain- add fentanyl patch given she has chronic pain from her cancer as well Continue radiation and chemo per radiation oncology Not on oxygen so no steroids indicated PT/OT Anemia Reported dark stools FOBT + Hold eliquis PPI Spoke with dixon- recommends outpatient scope unless actively bleeding Hgb relatively stable- DC IVF IDDMII SSI Resume home insulin as appropriate Hypothyroidism Anxiety/Depression HLD Continue home meds DVT ppx: SCDs only HARRIET DOSS MD Dec 05, 2022 09:11
[2022-12-05] MEDS ORDERED: CARBAMIDE PEROXIDE 6.5% LEFT EAR PRN (09:15)
[2022-12-05] MEDS: FLUTICASONE NASAL SPRAY (120 SPRAYS) NS SCH (10:16)
[2022-12-05] MEDS: RT-ALBUTEROL HFA 8.5 GM INHALER IH SCH (10:43)
[2022-12-05 11:21] VITALS: BP 112/60
--- NOTE | 2022-12-05 13:29 | Physical Therapy Daily Note ---
PT Daily Note-Current Subjective Patient lying supine in bed upon PT arrival, agreeable to treatment. Patient rates pain at 9/10 in her back. Pain Section J - Health Conditions 1. Rarely or not at all 2. Occasionally 3. Frequently 4. Almost constantly 8. Unable to answer Pain Effect on Sleep: 2 Pain Interference with Therapy: 2 Pain Interference w/Day-to-Day: 2 Transfers SCALE: Activities may be completed with or without assistive devices. 3-Tdjwebtqjk-epeoqyi completes the activity by him/herself with no assistance from a helper. 5-Set-up or Clean-up Assistance-helper sets up or cleans up; patient completes activity. [place] assists only prior to or following the activity. 4-Supervision or Touching Assistance-helper provides verbal cues and/or touching/steadying and/or contact guard assistance as patient completes activity. Assistance may be provided throughout the activity or intermittently. 3-Partial/Moderate Assistance-helper does LESS THAN HALF the effort. [place] l ifts, holds or supports trunk or limbs, but provides less than half the effort. 2-Substantial/Maximal Assistance-helper does MORE THAN HALF the effort. [place] lifts or holds trunk or limbs and provides more than half the effort. 4-Qujhuespc-otehbh does ALL the effort. Patient does none of the effort to complete the activity. Or, the assistance of 2 or more helpers is required for t he patient to complete the activity. If activity was not attempted, code reason: 7-Patient Refused. 9-Not Applicable-not attempted and the patient did not perform the activity before the current illness, exacerbation or injury. 10-Not Attempted due to Environmental Limitations-(lack of equipment, weather restraints, etc.). 88-Not Attempted due to Medical Conditions or Safety Concerns. Roll Left & Right (QC): 4 Sit to Lying (QC): 4 Lying to Sitting/Side of Bed(Q: 4 Sit to Stand (QC): 4 Chair/Bno-fa-Wovul Xfer(QC): 4 Weight Bearing Right Lower Extremity: Right Full Weight Bearing Left Lower Extremity: Left Full Weight Bearing Gait Training Does the Patient Walk?: Yes Distance: 120' Walk 10 feet (QC): 4 Walk 50 ft with 2 Turns(QC): 4 Uses IV pole for support Assessment Current Status: Poor Progress Patient performs all bed mobility and transfers with SBA. Patient ambulates 120' in the room with SBA, patient pushes the IV pole. Very abruptly patient reports increased pain and fatigue and requests to lie down in bed. Patient in bed post treatment with all needs met, nursing notified, call light in hand. PT Halfway Goals Physical Director Goals PT Halfway Goals Time Frame: Dec 31, 2022 Roll Left & Right (QC): 6 Sit to Lying (QC): 6 Lying-Sitting on Side/Bed(QC): 6 Sit to Stand (QC): 6 Chair/Skq-zr-Wlpxx Xfer(QC): 6 Toilet Transfer (QC): 6 Does the Patient Walk: Yes Walk 10 feet (QC): 6 Walk 50ft with 2 Turns (QC): 6 Walk 150 ft (QC): 6 PT Plan Treatment/Plan Treatment Plan: Continue Plan of Care Treatment Plan: Bed Mobility, Education, Functional Activity Matthew, Functional Strength, Group Therapy, Gait, Safety, Therapeutic Exercise, Transfers Treatment Duration: Jan 25, 2023 Frequency: 5 times per week Patient and/or Family Agrees t: Yes Safety Risks/Education Patient Education: Gait Training, Transfer Techniques Teaching Recipient: Patient Teaching Methods: Demonstration, Discussion Response to Teaching: Verbalize Understanding, Return Demonstration Time Time In: 1057 Time Out: 1107 DATE: Dec 05, 2022 Total Billed Treatment Time: 10 Total Billed Treatment Visit, VIDYA Velasco PT Dec 05, 2022 13:29
[2022-12-05 15:56] VITALS: BP 111/56
[2022-12-05] MEDS: morphine IMMEDIATE RELEASE 15 MG TABLET PO PRN ×2 (16:02→22:21)
[2022-12-05] MEDS: RT-ALBUTEROL HFA 8.5 GM INHALER IH PRN (19:04)
[2022-12-05 20:48] VITALS: BP 115/67
[2022-12-05] MEDS: DULoxetine 30 MG CAPSULE PO SCH (21:26)
[2022-12-05] MEDS: MIRTAZAPINE 15 MG TABLET PO SCH (21:26)
[2022-12-06] VITALS: BP 115/67
[2022-12-06] MEDS: NS + KCL 20 MEQ/L 1000 ML 1,000 ML IV SCH ×2 (00:05→22:51)
[2022-12-06] MEDS: fentaNYL INJECTION 100 MCG/2 ML VIAL IV PRN ×9 (00:10→22:46)
[2022-12-06] MEDS: CEFEPIME 1,000 MG/NS 50 ML IVPB IV SCH ×8 (03:43→22:52)
[2022-12-06] MEDS: morphine IMMEDIATE RELEASE 15 MG TABLET PO PRN ×5 (03:43→18:31)
[2022-12-06] MEDS: BENZONATATE 100 MG CAPSULE PO PRN ×2 (03:58→22:56)
[2022-12-06 04:28] VITALS: BP 109/69
[2022-12-06] MEDS: CATHETER FLUSH 10 ML SYR IV SCH ×3 (06:26→22:55)
[2022-12-06] MEDS: inSUlin ASPART 1 UNIT/0.01 ML (PER UNIT) SC SCH ×4 (06:26→22:33)
[2022-12-06] MEDS: LEVOTHYROXINE 100 MCG TABLET PO SCH (06:38)
[2022-12-06] MEDS: RT-ALBUTEROL HFA 8.5 GM INHALER IH PRN ×2 (07:26→18:38)
[2022-12-06] MEDS: LORATADINE 10 MG TABLET PO SCH (07:58)
[2022-12-06] MEDS: POTASSIUM CHLORIDE 20 MEQ TABLET PO SCH ×3 (07:58→22:54)
[2022-12-06] MEDS: CITALOPRAM 20 MG TABLET PO SCH (07:58)
[2022-12-06] MEDS: PANTOPRAZOLE INJECTION 40 MG VIAL IV SCH ×2 (07:59→22:52)
[2022-12-06] MEDS: CAPECITABINE 500 MG PO SCH ×2 (08:00→18:30)
[2022-12-06] MEDS: FLUTICASONE NASAL SPRAY (120 SPRAYS) NS SCH (08:00)
[2022-12-06] MEDS: NIRMATRELVIR/RITONAVIR (PAXLOVID) TABLET PO SCH ×2 (08:01→22:54)
[2022-12-06] MEDS: ONDANSETRON INJECTION 4 MG/2 ML (SDV) IV PRN ×3 (08:02→22:56)
[2022-12-06 08:24] VITALS: BP 137/81
--- NOTE | 2022-12-06 09:44 | Progress Note - Hospitalist ---
Subjective HPI/CC On Admission Date Seen by Provider: Dec 06, 2022 Patient is 62-year-old female past medical history of pancreatic cancer currently on chemotherapy and radiation status post Whipple procedure as well, diabetes, asthma, atrial fibrillation on anticoagulation who presented to the emergency department due to flulike symptoms with nausea and vomiting. She reports that her symptoms started on November 28 and the next day she tested positive for COVID. She continued to feel worse and began having vomiting 3-4 times a day along with loose black stools. She has not been able to keep up with her oral intake either and feels quite dehydrated. She is also having some pain with her cough and a low-grade temperature. Given her chronic multiple medical conditions and dehydration she was admitted for further management. This morning she reports feeling about the same and that her nausea is still persistent. Subjective/Events-last exam Pt reports feeling a little better but still having some pain. Working on using orals though. About to go down for radiation and then would like something to help her have a BM. Focused Exam Lactate Level 12/03/22 20:29: Lactic Acid Level 1.05 Objective Exam Vital Signs Vital Signs Date Time Temp Pulse Resp B/P (MAP) Pulse Ox O2 Delivery O2 Flow Rate FiO2 12/06/22 08:24 36.3 68 16 137/81 (99) 97 Room Air 12/03/22 23:09 21 Capillary Refill : Less Than 3 Seconds General Appearance: No Apparent Distress Respiratory: Lungs Clear, No Respiratory Distress Cardiovascular: Regular Rate, Rhythm Gastrointestinal: Normal Bowel Sounds, Soft Neurologic/Psychiatric: Alert, Oriented x3 Results/Procedures Lab Laboratory Tests 12/06/22 09:08 Patient resulted labs reviewed. Imaging: Reviewed Imaging Report Assessment/Plan Assessment and Plan Assess & Plan/Chief Complaint Sepsis due to PNA and COVID Immunocompromised on chemotherapy Pancreatic Cancer Continue Paxlovid (confirmed with pharmacy no known interactions) Continue Cefepime Blood cultures NGTD and urine likely contaminated Zofran for nausea Fentanyl patch, continue home morphine, IV fentanyl for breakthrough pain Continue radiation and chemo per radiation oncology Not on oxygen so no steroids indicated PT/OT Anemia Reported dark stools FOBT + Hold eliquis PPI Spoke with surgery- recommends outpatient scope unless actively bleeding Hgb up today IDDMII SSI Resume home insulin as appropriate but fasting BS 123 Hypothyroidism Anxiety/Depression HLD Continue home meds DVT ppx: SCDs only SELAM,HARRIET M MD Dec 06, 2022 09:44
[2022-12-06 09:48] LABS: CALCIUM 7.8 MG/DL (8.5-10.1); CREATININE SERUM 0.75 MG/DL (0.60-1.30); POTASSIUM 4.8 MMOL/L (3.6-5.0)
[2022-12-06 10:11] LABS: HEMATOCRIT 32 % (35-52); HEMOGLOBIN 9.6 g/dL (11.5-16.0); MEAN CORPUSCULAR HEMOGLOBIN 24 pg (25-34); MEAN CORPUSCULAR HGB CONC 30 g/dL (32-36); MEAN CORPUSCULAR VOLUME 80 fL (80-99); PLATELET COUNT 57 10^3/uL (130-400); WHITE BLOOD COUNT 3.2 10^3/uL (4.3-11.0)
[2022-12-06 10:13] LABS: BASOPHILS % (AUTO) 0 % (0-10); EOSINOPHILS % (AUTO) 0 % (0-10); LYMPHOCYTES # (AUTO) 0.5 X 10^3 (1.0-4.0); LYMPHOCYTES % (AUTO) 16 % (12-44); MONOCYTES # (AUTO) 0.3 X 10^3 (0.0-1.0); MONOCYTES % (AUTO) 11 % (0-12); NEUTROPHILS # (AUTO) 2.1 X 10^3 (1.8-7.8); NEUTROPHILS % (AUTO) 72 % (42-75)
--- NOTE | 2022-12-06 10:24 | Physical Therapy Progress Note ---
Therapy Progress Note Patient is up independently in room without difficulty. PT to dismiss patient from services at this time. RN confirms. DESTINY JAVIER PT Dec 06, 2022 10:24
[2022-12-06 11:15] VITALS: BP 128/80
[2022-12-06 15:56] VITALS: BP 105/60
[2022-12-06] MEDS: RT-ALBUTEROL HFA 8.5 GM INHALER IH SCH ×2 (18:39→22:30)
[2022-12-06] MEDS: DULoxetine 30 MG CAPSULE PO SCH (22:53)
[2022-12-06] MEDS: MIRTAZAPINE 15 MG TABLET PO SCH (22:53)
[2022-12-06] MEDS: MICONAZOLE 2% POWDER 90 GM TOP SCH (22:55)
[2022-12-06 23:18] VITALS: BP 113/57
[2022-12-07] MEDS: fentaNYL INJECTION 100 MCG/2 ML VIAL IV PRN ×11 (00:29→23:03)
[2022-12-07] MEDS: morphine IMMEDIATE RELEASE 15 MG TABLET PO PRN ×7 (00:29→21:01)
[2022-12-07] MEDS: ONDANSETRON INJECTION 4 MG/2 ML (SDV) IV PRN ×4 (03:10→23:50)
[2022-12-07] MEDS: CEFEPIME 1,000 MG/NS 50 ML IVPB IV SCH ×8 (03:10→20:03)
[2022-12-07 03:26] VITALS: BP 115/64
[2022-12-07] MEDS: inSUlin ASPART 1 UNIT/0.01 ML (PER UNIT) SC SCH ×4 (06:17→20:42)
[2022-12-07] MEDS: LEVOTHYROXINE 100 MCG TABLET PO SCH (06:17)
[2022-12-07] MEDS: CATHETER FLUSH 10 ML SYR IV SCH ×3 (06:23→20:18)
[2022-12-07 07:33] VITALS: BP 117/64
[2022-12-07] MEDS: CITALOPRAM 20 MG TABLET PO SCH (08:02)
[2022-12-07] MEDS: POTASSIUM CHLORIDE 20 MEQ TABLET PO SCH ×3 (08:02→20:03)
[2022-12-07] MEDS: LORATADINE 10 MG TABLET PO SCH (08:03)
[2022-12-07] MEDS: BENZONATATE 100 MG CAPSULE PO PRN (08:03)
[2022-12-07] MEDS: RT-ALBUTEROL HFA 8.5 GM INHALER IH SCH ×2 (08:05→18:49)
[2022-12-07] MEDS: FLUTICASONE NASAL SPRAY (120 SPRAYS) NS SCH (08:06)
[2022-12-07] MEDS: PANTOPRAZOLE INJECTION 40 MG VIAL IV SCH ×2 (08:06→20:06)
[2022-12-07] MEDS: MICONAZOLE 2% POWDER 90 GM TOP SCH ×2 (08:07→20:18)
[2022-12-07] MEDS: NIRMATRELVIR/RITONAVIR (PAXLOVID) TABLET PO SCH ×2 (08:07→20:15)
[2022-12-07] MEDS ORDERED: FENTANYL 100 MCG TOP SCH ×2 (10:00)
[2022-12-07] MEDS: FENTANYL PATCH REMOVAL TP SCH (10:16)
[2022-12-07 11:27] VITALS: BP 120/64
[2022-12-07] MEDS ORDERED: IRON SUCROSE 200 MG/10 ML VIAL IV ONE (12:30)
[2022-12-07] MEDS ORDERED: SENNOSIDES 8.6 MG TABLET PO ONE (12:30)
--- NOTE | 2022-12-07 12:32 | Progress Note - Hospitalist ---
Subjective HPI/CC On Admission Date Seen by Provider: Dec 07, 2022 Time Seen by Provider: 11:45 Patient is 62-year-old female past medical history of pancreatic cancer currently on chemotherapy and radiation status post Whipple procedure as well, diabetes, asthma, atrial fibrillation on anticoagulation who presented to the emergency department due to flulike symptoms with nausea and vomiting. She reports that her symptoms started on November 28 and the next day she tested positive for COVID. She continued to feel worse and began having vomiting 3-4 times a day along with loose black stools. She has not been able to keep up with her oral intake either and feels quite dehydrated. She is also having some pain with her cough and a low-grade temperature. Given her chronic multiple medical conditions and dehydration she was admitted for further management. This morning she reports feeling about the same and that her nausea is still p ersistent. Subjective/Events-last exam Reports continued left upper quadrant abdominal pain as well as lower thoracic mid is sometimes aggravated by deep breaths. She has history of asthma reports her cough is still much worse than baseline but was helped by [facility]. She reported that Tessalon had not been of benefit. Sputum is whitish in color only. Last night she rated her pain 12 on a scale to 10 currently a 5 or 6 with benefit for about an hour on fentanyl IV. She reported morphine sustained release had not been of any benefit for her so it had been stopped. She denies night sweats chills or fever. She did not appear to be in any distress during the interview she was alert and oriented with no evidence for sedation. Objective Exam Vital Signs Vital Signs Date Time Temp Pulse Resp B/P (MAP) Pulse Ox O2 Delivery O2 Flow Rate FiO2 12/07/22 11:27 36.1 65 17 120/64 (82) 97 Room Air 12/03/22 23:09 21 Capillary Refill : Less Than 3 Seconds General Appearance: No Apparent Distress, Obese Respiratory: No Accessory Muscle Use, No Respiratory Distress, Other (Scattered rhonchi with mild expiratory wheezing left worse than right but noted throughout.) Cardiovascular: Regular Rate, Rhythm, No Edema, No Gallop, No JVD, No Murmur Gastrointestinal: Normal Bowel Sounds, Other ( Right and left upper quadrant discomfort to palpation) Extremity: Normal Capillary Refill, Normal Inspection, Normal Range of Motion, Non Tender, No Calf Tenderness, No Pedal Edema Results/Procedures Lab Patient resulted labs reviewed. Imaging: Reviewed Imaging Report Assessment/Plan Assessment and Plan Assess & Plan/Chief Complaint Assess & Plan/Chief Complaint Sepsis due to PNA and COVID Immunocompromised on chemotherapy Pancreatic Cancer Continue Paxlovid (confirmed with pharmacy no known interactions) Continue Cefepime Blood cultures NGTD and urine likely contaminated Zofran for nausea Fentanyl patch, continue home morphine, IV fentanyl for breakthrough pain Continue radiation and chemo per radiation oncology Not on oxygen so no steroids indicated PT/OT Will increase fentanyl patch to 100 mcg continuing to supplement with IV. There is a pleuritic component to left-sided chest pain but unfortunately she is not a candidate for nonsteroidal therapy considering stage IV chronic renal disease. Anemia Reported dark stools FOBT + Hold eliquis PPI Spoke with surgery- recommends outpatient scope unless actively bleeding Hgb Been slowly decreasing without recurrent melena or bright red blood per rectum. We will give a dose of IV iron as it is microcytic presumed iron deficiency. IDDMII SSI Resume home insulin as appropriate but fasting BS 123 Hypothyroidism Anxiety/Depression AVRIL BARKLEY MD Dec 07, 2022 12:32
[2022-12-07] MEDS: FLUTICASONE/VILANTEROL 100/25 MCG (7 DOSES) IH SCH (14:26)
[2022-12-07 15:51] VITALS: BP 124/61
[2022-12-07] MEDS: DULoxetine 30 MG CAPSULE PO SCH (20:03)
[2022-12-07] MEDS: SENNOSIDES 8.6 MG TABLET PO SCH (20:03)
[2022-12-07] MEDS: MIRTAZAPINE 15 MG TABLET PO SCH (20:11)
[2022-12-07] MEDS: NS + KCL 20 MEQ/L 1000 ML 1,000 ML IV SCH (20:14)
[2022-12-07 20:19] VITALS: BP 125/59
[2022-12-07 23:07] VITALS: BP 145/79
[2022-12-08] MEDS: fentaNYL INJECTION 100 MCG/2 ML VIAL IV PRN ×10 (00:44→23:28)
[2022-12-08] MEDS: CEFEPIME 1,000 MG/NS 50 ML IVPB IV SCH ×8 (02:17→20:13)
[2022-12-08] MEDS: morphine IMMEDIATE RELEASE 15 MG TABLET PO PRN ×3 (03:16→12:08)
[2022-12-08] MEDS: ONDANSETRON INJECTION 4 MG/2 ML (SDV) IV PRN ×3 (04:01→16:35)
[2022-12-08 04:07] VITALS: BP 147/72
[2022-12-08 04:11] LABS: BASOPHILS % (AUTO) 0 % (0-10); EOSINOPHILS # (AUTO) 0.2 10^3/uL (0.0-0.3); EOSINOPHILS % (AUTO) 5 % (0-10); HEMATOCRIT 31 % (35-52); HEMOGLOBIN 9.3 g/dL (11.5-16.0); LYMPHOCYTES # (AUTO) 0.5 10^3/uL (1.0-4.0); LYMPHOCYTES % (AUTO) 16 % (12-44); MEAN CORPUSCULAR HEMOGLOBIN 24 pg (25-34); MEAN CORPUSCULAR HGB CONC 30 g/dL (32-36); MEAN CORPUSCULAR VOLUME 81 fL (80-99); MONOCYTES # (AUTO) 0.5 10^3/uL (0.0-1.0); MONOCYTES % (AUTO) 17 % (0-12); NEUTROPHILS # (AUTO) 1.8 10^3/uL (1.8-7.8); NEUTROPHILS % (AUTO) 61 % (42-75); PLATELET COUNT 61 10^3/uL (130-400)
[2022-12-08] MEDS: LEVOTHYROXINE 100 MCG TABLET PO SCH (05:33)
[2022-12-08] MEDS: CATHETER FLUSH 10 ML SYR IV SCH ×3 (05:40→20:01)
[2022-12-08] MEDS: inSUlin ASPART 1 UNIT/0.01 ML (PER UNIT) SC SCH ×4 (05:40→20:05)
[2022-12-08] MEDS: RT-ALBUTEROL HFA 8.5 GM INHALER IH PRN (06:52)
[2022-12-08 07:44] VITALS: BP 145/80
[2022-12-08] MEDS: PANTOPRAZOLE INJECTION 40 MG VIAL IV SCH ×2 (08:42→19:58)
[2022-12-08] MEDS: CITALOPRAM 20 MG TABLET PO SCH (08:43)
[2022-12-08] MEDS: POTASSIUM CHLORIDE 20 MEQ TABLET PO SCH ×3 (08:43→19:59)
[2022-12-08] MEDS: SENNOSIDES 8.6 MG TABLET PO SCH ×2 (08:43→19:59)
[2022-12-08] MEDS: FLUTICASONE NASAL SPRAY (120 SPRAYS) NS SCH (08:43)
[2022-12-08] MEDS: LORATADINE 10 MG TABLET PO SCH (08:43)
[2022-12-08] MEDS: NIRMATRELVIR/RITONAVIR (PAXLOVID) TABLET PO SCH ×2 (08:44→20:00)
[2022-12-08] MEDS: MICONAZOLE 2% POWDER 90 GM TOP SCH ×2 (08:45→20:01)
[2022-12-08] MEDS ORDERED: FENTANYL PATCH REMOVAL TP SCH (08:59)
--- NOTE | 2022-12-08 10:39 | Progress Note - Hospitalist ---
Subjective HPI/CC On Admission Date Seen by Provider: Dec 08, 2022 Time Seen by Provider: 10:32 Patient is 62-year-old female past medical history of pancreatic cancer currently on chemotherapy and radiation status post Whipple procedure as well, diabetes, asthma, atrial fibrillation on anticoagulation who presented to the emergency department due to flulike symptoms with nausea and vomiting. She reports that her symptoms started on November 28 and the next day she tested positive for COVID. She continued to feel worse and began having vomiting 3-4 times a day along with loose black stools. She has not been able to keep up with her oral intake either and feels quite dehydrated. She is also having some pain with her cough and a low-grade temperature. Given her chronic multiple medical conditions and dehydration she was admitted for further management. This morning she reports feeling about the same and that her nausea is still persistent. Subjective/Events-last exam Predominant bilateral lateral upper quadrant abdominal pain aggravated by coughing is the patient's major complaint. Yesterday we had increased her fentanyl patch to 100 mcg she is still taking IV fentanyl about every 2 hours while awake. She denies night sweats chills or fever she does report that Robitussin does help with her cough. She has had no nausea and her appetite is improving. Objective Exam Vital Signs Vital Signs Date Time Temp Pulse Resp B/P (MAP) Pulse Ox O2 Delivery O2 Flow Rate FiO2 12/08/22 08:00 Room Air 12/08/22 07:44 36.2 77 18 145/80 (101) 97 12/03/22 23:09 21 Capillary Refill : Less Than 3 Seconds General Appearance: Chronically ill, Mild Distress Respiratory: No Accessory Muscle Use, No Respiratory Distress, Other (Scattered rhonchi with mild expiratory wheeze but airflow has improved today compared to yesterday) Cardiovascular: Regular Rate, Rhythm, No Edema, No Gallop, No Murmur Extremity: Non Tender, No Pedal Edema Results/Procedures Lab Laboratory Tests 12/08/22 04:01 Patient resulted labs reviewed. Imaging: Reviewed Imaging Report Assessment/Plan Assessment and Plan Assess & Plan/Chief Complaint Assess & Plan/Chief Complaint Sepsis due to PNA and COVID Immunocompromised on chemotherapy Pancreatic Cancer Continue Paxlovid (confirmed with pharmacy no known interactions) Continue Cefepime Blood cultures NGTD and urine likely contaminated Zofran for nausea Fentanyl patch, continue home morphine, IV fentanyl for breakthrough pain Continue radiation and chemo per radiation oncology Not on oxygen so no steroids indicated PT/OT Will increase fentanyl patch to 100 mcg continuing to supplement with IV. There is a pleuritic component to left-sided chest pain but unfortunately she is not a candidate for nonsteroidal therapy considering stage IV chronic renal disease. 12/08 acute asthma exacerbation with improvement on Breo Ellipta and albuterol. Solu-Medrol was not initiated due to diabetes with lack of respiratory distress or hypoxemia. Chemotherapy related pancytopenia slowly improving platelet count up slightly to 60,000 white count up slightly to 3000. Type 2 diabetes has been under Reasonable control on diet alone. she does have a telehealth visit with her oncologist at [facility] who has been helping out with pain management for now continue fentanyl patch and IV. Patient had stopped morphine as she did not feel that it was helping. While cough is aggravating her symptoms and there is a pleuritic component she is not a candidate for nonsteroidal therapy due to stage IV chronic renal disease which has been stable. Continue Tessalon and Robitussin-DM. Anemia Reported dark stools FOBT + Hold eliquis PPI Spoke with surgery- recommends outpatient scope unless actively bleeding Hgb Been slowly decreasing without recurrent melena or bright red blood per rectum. We will give a dose of IV iron as it is microcytic presumed iron defici ency. IDDMII SSI Resume home insulin as appropriate but fasting BS 123 Hypothyroidism Anxiety/Depression AVRIL BARKLEY MD Dec 08, 2022 10:39
[2022-12-08 12:01] VITALS: BP 151/80
[2022-12-08] MEDS: BENZONATATE 100 MG CAPSULE PO SCH ×2 (12:08→19:57)
[2022-12-08] MEDS: NS + KCL 20 MEQ/L 1000 ML 1,000 ML IV SCH (16:46)
[2022-12-08 16:50] VITALS: BP 133/76
[2022-12-08] MEDS: RT-ALBUTEROL HFA 8.5 GM INHALER IH SCH (18:45)
[2022-12-08 19:23] VITALS: BP 132/70
[2022-12-08] MEDS: MIRTAZAPINE 15 MG TABLET PO SCH (19:57)
[2022-12-08] MEDS: DULoxetine 30 MG CAPSULE PO SCH (19:59)
[2022-12-08] MEDS ORDERED: DIGOXIN INJECTION 0.25 MG/ML 2 ML AMPULE IV ONE (22:45)
[2022-12-08] MEDS ORDERED: NS (IVPB) 250 ML 250 ML IV STA (22:47)
--- NOTE | 2022-12-08 22:56 | Tele-ICU Progress Note ---
Progress Note Notified of new atrial fib, HR up to 170s, pt on cardizem. SBP in 90s. I advised consideration of amiodarone and that nurse call [employer]. I ordered digoxin 0.25 mg IV x 1 Focused Exam Height, Weight, BMI Height: '" Weight: lbs. oz. kg; 34.00 BMI Method: Meds/Labs/Orders Lab results: Laboratory Tests Test 12/08/22 04:01 12/08/22 05:38 12/08/22 11:11 12/08/22 15:32 Range/Units White Blood Count 3.0 L 4.3-11.0 10^3/uL Red Blood Count 3.86 3.80-5.11 10^6/uL Hemoglobin 9.3 L 11.5-16.0 g/dL Hematocrit 31 L 35-52 % Mean Corpuscular Volume 81 80-99 fL Mean Corpuscular Hemoglobin 24 L 25-34 pg Mean Corpuscular Hemoglobin Concent 30 L 32-36 g/dL Red Cell Distribution Width 28.2 H 10.0-14.5 % Platelet Count 61 L 130-400 10^3/uL Mean Platelet Volume 9.0-12.2 fL Immature Granulocyte % (Auto) 0 % Neutrophils (%) (Auto) 61 42-75 % Lymphocytes (%) (Auto) 16 12-44 % Monocytes (%) (Auto) 17 H 0-12 % Eosinophils (%) (Auto) 5 0-10 % Basophils (%) (Auto) 0 0-10 % Neutrophils # (Auto) 1.8 1.8-7.8 10^3/uL Lymphocytes # (Auto) 0.5 L 1.0-4.0 10^3/uL Monocytes # (Auto) 0.5 0.0-1.0 10^3/uL Eosinophils # (Auto) 0.2 0.0-0.3 10^3/uL Basophils # (Auto) 0.0 0.0-0.1 10^3/uL Immature Granulocyte # (Auto) 0.0 0.0-0.1 10^3/uL Percent Immature Platelet Fraction 11.6 H 0.0-7.6 % Glucometer 97 104 184 H 70-110 MG/DL Test 12/08/22 20:05 Range/Units Glucometer 123 H 70-110 MG/DL My orders: Orders - MY MILLER MD Digoxin Injection (Digoxin Injection) (12/08/22 22:45) Vital Signs Vitals Signs Source: Temporal, Heart Rate: 150, Respiratory Rate: 18, BP: 132/70, Pulse Oximetry: 96, Weight: 113.3 Vitals - Labs Vital Signs - I&O Vital Signs Date Time Temp Pulse Resp B/P (MAP) Pulse Ox O2 Delivery O2 Flow Rate FiO2 12/08/22 20:05 150 12/08/22 19:58 Room Air 12/08/22 19:23 36.1 62 18 132/70 (90) 96 Room Air 12/08/22 19:00 80 12/08/22 18:45 97 Room Air 12/08/22 18:39 68 98 21 12/08/22 16:50 36.4 66 19 133/76 (95) 96 Room Air 12/08/22 12:22 83 12/08/22 12:01 36.2 62 20 151/80 (103) 98 Room Air 12/08/22 08:00 Room Air 12/08/22 07:44 36.2 77 18 145/80 (101) 97 Room Air 12/08/22 07:00 73 12/08/22 06:52 98 Room Air 12/08/22 04:07 36.3 69 18 147/72 (97) 97 Room Air 12/08/22 03:26 60 12/07/22 23:07 36.1 72 20 145/79 (101) 100 Room Air I & O 12/08/22 07:00 Intake Total 3160 ml Output Total 2600 ml Balance 560 ml Labs Laboratory Tests 12/08/22 04:01: White Blood Count 3.0L, Red Blood Count 3.86, Hemoglobin 9.3L, Hematocrit 31L, Mean Corpuscular Volume 81, Mean Corpuscular Hemoglobin 24L, Mean Corpuscular Hemoglobin Concent 30L, Red Cell Distribution Width 28.2H, Platelet Count 61L, Mean Platelet Volume , Immature Granulocyte % (Auto) 0, Neutrophils (%) (Auto) 61, Lymphocytes (%) (Auto) 16, Monocytes (%) (Auto) 17H, Eosinophils (%) (Auto) 5, Basophils (%) (Auto) 0, Neutrophils # (Auto) 1.8, Lymphocytes # (Auto) 0.5L, Monocytes # (Auto) 0.5, Eosinophils # (Auto) 0.2, Basophils # (Auto) 0.0, Immature Granulocyte # (Auto) 0.0, Percent Immature Platelet Fraction 11.6H 12/08/22 05:38: Glucometer 97 12/08/22 11:11: Glucometer 104 12/08/22 15:32: Glucometer 184H 12/08/22 20:05: Glucometer 123H Microbiology 12/03/22 Urine Culture - Final, Complete 3 or more isolates 12/03/22 Blood Culture - Preliminary, Resulted MY MILLER MD Dec 08, 2022 22:56
[2022-12-08] MEDS ORDERED: DIGOXIN INJECTION 0.25 MG/ML 2 ML AMPULE IV PRN (23:00)
[2022-12-08] MEDS ORDERED: NORMAL SALINE (EXCEL) 250 ML 250 ML ONE (23:01)
[2022-12-08] MEDS ORDERED: NS IV 1000 ML 1,000 ML ONE (23:01)
[2022-12-08] MEDS ORDERED: NS (IVPB) 250 ML 250 ML ONE (23:01)
[2022-12-08] MEDS ORDERED: AMIODARONE (Pyxis Kit Only) DRIP 450 MG/9 ML VIAL IV ONE (23:02)
[2022-12-08] MEDS: AMIODARONE FOR DRIP 450 MG in NORMAL SALINE (EXCEL) 250 ML 250 ML IV SCH (23:28)
[2022-12-08] MEDS: NS IV 1000 ML 1,000 ML IV SCH (23:29)
[2022-12-08 23:31] VITALS: BP 102/74
[2022-12-08] MEDS: APIXABAN 5 MG TABLET PO SCH (23:31)
[2022-12-08] MEDS: dilTIAZem DRIP PRE-MIX 125 ML IV SCH (23:31)
[2022-12-08 23:42] LABS: BASOPHILS % (AUTO) 0 % (0-10); EOSINOPHILS # (AUTO) 0.2 10^3/uL (0.0-0.3); EOSINOPHILS % (AUTO) 4 % (0-10); HEMOGLOBIN 10.2 g/dL (11.5-16.0); MEAN CORPUSCULAR HEMOGLOBIN 24 pg (25-34); NEUTROPHILS % (AUTO) 67 % (42-75)
[2022-12-08 23:44] LABS: HEMATOCRIT 34 % (35-52); LYMPHOCYTES # (AUTO) 0.5 10^3/uL (1.0-4.0); LYMPHOCYTES % (AUTO) 13 % (12-44); MEAN CORPUSCULAR HGB CONC 30 g/dL (32-36); MEAN CORPUSCULAR VOLUME 80 fL (80-99); MONOCYTES # (AUTO) 0.7 10^3/uL (0.0-1.0); MONOCYTES % (AUTO) 16 % (0-12); NEUTROPHILS # (AUTO) 2.8 10^3/uL (1.8-7.8); PLATELET COUNT 66 10^3/uL (130-400); WHITE BLOOD COUNT 4.2 10^3/uL (4.3-11.0)
[2022-12-08 23:53] LABS: CHLORIDE 105 MMOL/L (98-107); POTASSIUM 3.6 MMOL/L (3.6-5.0); SODIUM 136 MMOL/L (135-145)
[2022-12-08 23:54] LABS: CALCIUM 7.9 MG/DL (8.5-10.1)
[2022-12-08 23:55] LABS: GLUCOSE 133 MG/DL (70-105)
[2022-12-08 23:56] LABS: CARBON DIOXIDE 21 MMOL/L (21-32)
[2022-12-08 23:58] LABS: CREATININE SERUM 0.94 MG/DL (0.60-1.30); GFR ESTIMATED 69
[2022-12-08 23:59] LABS: BUN/CREATININE RATIO 18
--- NOTE | 2022-12-09 00:33 | Tele-ICU Consult ---
Progress Note 62 yo female with h/o pancreatic cancer admitted 12/04/22. She was transferred with atrial fib w RVR. She was transitioned to amiodarone drip for this. Per nurse, pt developed acute abdominal pain/discomfort persistent despite fentanyl pain med. Per bedside nurse, had tense rigid abdomen Focused Exam Sepsis Stage: Sepsis Height, Weight, BMI Height: '" Weight: lbs. oz. kg; 34.00 BMI Method: Cardiovascular: Irregularly Irregular, Tachycardia Within 3hrs of presentation: Lactate level Assessment/Plan Assessment and Plan Assess & Plan/Chief Complaint 62 yo female Atrial fib w RVR. Amio drip, can give additional digoxin, cardiology on consult Abdominal pain, h/o pancreatic cancer and h/o surgery, will check CT abdomen/pelvis Hold eliquis in case procedure is needed Critical Care Critically Ill Patient CC TIME : Critical Care Start Time: 12:20 Stop Time: 12:40 Past [id number]-Dioftr-Yaszvg Hx Immunizations Up To Date First/Initial COVID19 Vaccinat: 2020 Second COVID19 Vaccination Rudolph: 2020 Seasonal Allergies Seasonal Allergies: No Current Status Communicates: Verbally Primary Language: [place] Preferred Spoken Language: [place] Past Medical History Surgeries: Appendectomy, Cardiac, Orthopedic Atrial Fibrillation Diabetes, Insulin dep Pancreatic What Type of Treatment Did You: Chemotherapy, Radiation, Surgical Intervention Blood Disorders: No Family Medical History Reviewed Nursing Family Hx Review of Systems Time Seen by Provider: 12:20 Vitals - Labs Vital Signs - I&O Vital Signs Date Time Temp Pulse Resp B/P (MAP) Pulse Ox O2 Delivery O2 Flow Rate FiO2 12/08/22 23:31 174 102/74 12/08/22 20:59 146 12/08/22 20:05 150 12/08/22 19:58 Room Air 12/08/22 19:23 36.1 62 18 132/70 (90) 96 Room Air 12/08/22 19:00 80 12/08/22 18:45 97 Room Air 12/08/22 18:39 68 98 21 12/08/22 16:50 36.4 66 19 133/76 (95) 96 Room Air 12/08/22 12:22 83 12/08/22 12:01 36.2 62 20 151/80 (103) 98 Room Air 12/08/22 08:00 Room Air 12/08/22 07:44 36.2 77 18 145/80 (101) 97 Room Air 12/08/22 07:00 73 12/08/22 06:52 98 Room Air 12/08/22 04:07 36.3 69 18 147/72 (97) 97 Room Air 12/08/22 03:26 60 I & O 12/09/22 07:00 Intake Total 3440 ml Output Total 3300 ml Balance 140 ml Labs Laboratory Tests 12/08/22 04:01: White Blood Count 3.0L, Red Blood Count 3.86, Hemoglobin 9.3L, Hematocrit 31L, Mean Corpuscular Volume 81, Mean Corpuscular Hemoglobin 24L, Mean Corpuscular Hemoglobin Concent 30L, Red Cell Distribution Width 28.2H, Platelet Count 61L, Mean Platelet Volume , Immature Granulocyte % (Auto) 0, Neutrophils (%) (Auto) 61, Lymphocytes (%) (Auto) 16, Monocytes (%) (Auto) 17H, Eosinophils (%) (Auto) 5, Basophils (%) (Auto) 0, Neutrophils # (Auto) 1.8, Lymphocytes # (Auto) 0.5L, Monocytes # (Auto) 0.5, Eosinophils # (Auto) 0.2, Basophils # (Auto) 0.0, Immature Granulocyte # (Auto) 0.0, Percent Immature Platelet Fraction 11.6H 12/08/22 05:38: Glucometer 97 12/08/22 11:11: Glucometer 104 12/08/22 15:32: Glucometer 184H 12/08/22 20:05: Glucometer 123H 12/08/22 23:15: White Blood Count 4.2L, Red Blood Count 4.21, Hemoglobin 10.2L, Hematocrit 34L, Mean Corpuscular Volume 80, Mean Corpuscular Hemoglobin 24L, Mean Corpuscular Hemoglobin Concent 30L, Red Cell Distribution Width 28.4H, Platelet Count 66L, Mean Platelet Volume , Immature Granulocyte % (Auto) 1, Neutrophils (%) (Auto) 67, Lymphocytes (%) (Auto) 13, Monocytes (%) (Auto) 16H, Eosinophils (%) (Auto) 4, Basophils (%) (Auto) 0, Neutrophils # (Auto) 2.8, Lymphocytes # (Auto) 0.5L, Monocytes # (Auto) 0.7, Eosinophils # (Auto) 0.2, Basophils # (Auto) 0.0, Immatu re Granulocyte # (Auto) 0.0, Percent Immature Platelet Fraction 12.3H, Sodium Level 136, Potassium Level 3.6, Chloride Level 105, Carbon Dioxide Level 21, Anion Gap 10, Blood Urea Nitrogen 17, Creatinine 0.94, Estimat Glomerular Filtra tion Rate 69, BUN/Creatinine Ratio 18, Glucose Level 133H, Calcium Level 7.9L, Troponin I < 0.028 Microbiology 12/03/22 Urine Culture - Final, Complete 3 or more isolates 12/03/22 Blood Culture - Preliminary, Resulted Vital Signs Vitals Signs Source: Temporal, Heart Rate: 174, Respiratory Rate: 18, BP: 102/74, Pulse Oximetry: 96, Weight: 113.3 MY MILLER MD Dec 09, 2022 00:33
[2022-12-09 01:17] LABS: INR 1.2 (0.8-1.4); PROTHROMBIN TIME PATIENT 15.7 SEC (12.2-14.7)
[2022-12-09] MEDS: ONDANSETRON INJECTION 4 MG/2 ML (SDV) IV PRN ×3 (01:39→20:57)
[2022-12-09] MEDS: POTASSIUM CL 10MEQ/50ML IVPB 50 ML IV SCH ×4 (01:40→03:45)
[2022-12-09] MEDS ORDERED: CATHETER FLUSH 10 ML SYR IV PRN (02:30)
[2022-12-09] MEDS: fentaNYL INJECTION 100 MCG/2 ML VIAL IV PRN ×4 (02:30→10:25)
[2022-12-09] MEDS ORDERED: IOHEXOL 350 MG/ML 100 ML (OMNIPAQUE 350) VIAL IV ONE (02:30)
[2022-12-09] MEDS ORDERED: NS 100 ML (IVPB) BAG IV ONE (02:30)
[2022-12-09] MEDS ORDERED: HOLD METFORMIN - RECEIVED CONTRAST 20 ML VIAL IV SCH (02:30)
[2022-12-09 05:47] LABS: BASOPHILS % (AUTO) 0 % (0-10)
[2022-12-09 05:49] LABS: EOSINOPHILS # (AUTO) 0.2 10^3/uL (0.0-0.3); EOSINOPHILS % (AUTO) 5 % (0-10); HEMATOCRIT 31 % (35-52); HEMOGLOBIN 9.3 g/dL (11.5-16.0); LYMPHOCYTES # (AUTO) 0.5 10^3/uL (1.0-4.0); LYMPHOCYTES % (AUTO) 15 % (12-44); MEAN CORPUSCULAR HEMOGLOBIN 24 pg (25-34); MEAN CORPUSCULAR HGB CONC 30 g/dL (32-36); MEAN CORPUSCULAR VOLUME 80 fL (80-99); MONOCYTES # (AUTO) 0.6 10^3/uL (0.0-1.0); MONOCYTES % (AUTO) 18 % (0-12); NEUTROPHILS # (AUTO) 1.9 10^3/uL (1.8-7.8); NEUTROPHILS % (AUTO) 62 % (42-75); PLATELET COUNT 63 10^3/uL (130-400); WHITE BLOOD COUNT 3.1 10^3/uL (4.3-11.0)
[2022-12-09 06:11] LABS: POTASSIUM 3.9 MMOL/L (3.6-5.0)
[2022-12-09 06:12] LABS: CALCIUM 7.4 MG/DL (8.5-10.1)
[2022-12-09 06:14] LABS: TOTAL PROTEIN 5.8 GM/DL (6.4-8.2)
[2022-12-09 06:15] LABS: BILIRUBIN,TOTAL 0.6 MG/DL (0.1-1.0)
--- NOTE | 2022-12-09 06:16 | Diagnostic Imaging Report ---
PROCEDURE: CT abdomen and pelvis with and without contrast. TECHNIQUE: Precontrast acquisitions were acquired through the abdomen and pelvis. Multiple contiguous axial images were obtained through the abdomen and pelvis after the administration of intravenous contrast. Auto Exposure Controls were utilized during the CT exam to meet ALARA standards for radiation dose reduction. INDICATION: Abdominal pain patient with pancreatic cancer. COMPARISON: 12/01/2020 FINDINGS: There is atelectasis and probable pneumonitis in the visible lung bases. There has been surgical resection of the pancreatic head and evidence of prior Whipple procedure. There is mild intrahepatic biliary ductal dilatation. There is continued enlargement of the left adrenal gland. Splenic calcified granuloma is noted. There is no evidence of focal renal abnormality. There is [id number] amount of colonic stool present with small partial herniation of transverse colon through an approximately 1.5 cm in diameter defect in the anterior abdominal wall underlying site of prior incision. There is no evidence of free fluid. No organized fluid collection is identified. Unopacified urinary bladder is unremarkable. IMPRESSION: Interval Whipple procedure with mild pneumobilia. There is also a small focal protrusion of transverse colon through anterior abdominal wall defect likely representing incisional hernia. Left adrenal gland enlargement is stable and likely represents adenoma. Dictated by: Dictated on workstation # [id number]
[2022-12-09 06:17] LABS: CREATININE SERUM 0.85 MG/DL (0.60-1.30)
[2022-12-09] MEDS: CATHETER FLUSH 10 ML SYR IV SCH ×3 (06:17→21:37)
[2022-12-09 06:20] LABS: MAGNESIUM 1.7 MG/DL (1.6-2.4)
[2022-12-09] MEDS: FLUTICASONE/VILANTEROL 100/25 MCG (7 DOSES) IH SCH ×2 (06:20→09:30)
[2022-12-09 06:30] LABS: EOSINOPHILS % (MANUAL) 4 %; LYMPHOCYTES % (MANUAL) 16 %; MONOCYTES % (MANUAL) 18 %; NEUTROPHILS % (MANUAL) 62 %
[2022-12-09 06:31] LABS: ANISOCYTOSIS MARKED; HYPOCHROMASIA SLIGHT
[2022-12-09] MEDS ORDERED: AMIODARONE (Pyxis Kit Only) DRIP 450 MG/9 ML VIAL IV ONE (06:36)
[2022-12-09] MEDS: NS IV 1000 ML 1,000 ML IV SCH ×2 (06:46→13:27)
[2022-12-09] MEDS: LEVOTHYROXINE 100 MCG TABLET PO SCH (06:46)
[2022-12-09] MEDS: inSUlin ASPART 1 UNIT/0.01 ML (PER UNIT) SC SCH ×4 (06:47→20:59)
[2022-12-09] MEDS: AMIODARONE FOR DRIP 450 MG in NORMAL SALINE (EXCEL) 250 ML 250 ML IV SCH (08:30)
[2022-12-09] MEDS: APIXABAN 5 MG TABLET PO SCH ×2 (08:40→20:59)
[2022-12-09] MEDS: CITALOPRAM 20 MG TABLET PO SCH (08:40)
[2022-12-09] MEDS: BENZONATATE 100 MG CAPSULE PO SCH ×3 (08:41→20:56)
[2022-12-09] MEDS: LORATADINE 10 MG TABLET PO SCH (08:41)
[2022-12-09] MEDS: SENNOSIDES 8.6 MG TABLET PO SCH ×2 (08:42→20:58)
[2022-12-09] MEDS: POTASSIUM CHLORIDE 20 MEQ TABLET PO SCH ×3 (08:42→20:58)
[2022-12-09] MEDS: PANTOPRAZOLE INJECTION 40 MG VIAL IV SCH ×2 (08:42→20:58)
[2022-12-09] MEDS: CAPECITABINE 500 MG PO SCH ×2 (08:56→18:13)
[2022-12-09] MEDS: RT-ALBUTEROL HFA 8.5 GM INHALER IH SCH (09:31)
[2022-12-09] MEDS: FLUTICASONE NASAL SPRAY (120 SPRAYS) NS SCH (09:31)
[2022-12-09] MEDS: MICONAZOLE 2% POWDER 90 GM TOP SCH ×2 (09:32→21:05)
--- NOTE | 2022-12-09 09:46 | Consultation-Cardiology ---
HPI-Cardiology Cardiology Consultation: Date of Consultation 12/09/22 Time Seen by a Provider: 08:45 Date of Admission 12-08-22 Attending Physician Awilda Reynolds MD Admitting Physician Admitting Physician: Lambert Lomas MD Attending Physician: Day Paniagua MD Consulting Physician Moises Mendoza MD HPI: Chief Complaint: PAF Ms. Ortiz is a 62 yr old female admitted to ICU 2 from the ED with c/o gen weakness, fatigue. She reports she was dx with COVID last week and was started on Paxlovid. She reports she stopped her Eliquis d/t concern of interaction. She denies any c/o CP, palpitations, syncope, near syncope or LE swelling. We have been consulted d/t her converting to a-fib/flutter with RVR. She has converted to SR. She denies any n/v/d. She reports she follows with [facility], Dr. Peter for cardiology as she has a a h/o PAF. She does have pancreatic cancer and is being treated at [facility]. Review of Systems-Cardiology Review of Systems Constitutional: As described under HPI Eyes: No vision change Ears/Nose/Throat: No epistaxis Respiratory: As described under HPI Cardiovascular: As described under HPI Gastrointestinal: constipation; No diarrhea, No nausea, No vomiting Genitourinary: No dysuria Musculoskeletal: no symptoms reported Skin: No rash on exposed areas, No ulcerations on exposed areas Psychiatric/Neurological: No anxiety, No depression, No seizure, No focal weakness, No syncope Hematologic: No bleeding abnormalities All Other Systems Reviewed Negative Unless Noted: Yes NOY-Epmhba-Xltakp Hx Patient Social History 2nd Hand Smoke Exposure: No Past Medical History PMH As described under Assessment. Family Medical History Family Medical History: She reports her father had a AAA and passed at age 52. She reports a sister with a-fib, who has passed. Allergies and Home Medications Allergies Coded Allergies: gabapentin (Verified Allergy, Intermediate, Pedal Swelling, 12/06/22) Patient states levothyroxine (Verified Allergy, Mild, Swelling in neck, 12/06/22) Patient states that she only has this reaction to the generic form of this medication. Penicillins (Verified Adverse Reaction, Mild, nausea, 11/25/18) Patient Home Medication List Albuterol Sulfate (Ventolin Hfa) 90 Mcg Hfa.aer.ad, 2 PUFF INH Q4H PRN for SHORTNESS OF BREATH, (Reported) Entered as Reported by: VALERIO VALENTIN on 12/04/221529 Last Action: Continued Apixaban (Eliquis) 5 Mg Tablet, 5 MG PO BID, (Reported) Entered as Reported by: FRANSICO PARKER on 12/03/222354 Last Action: Continued Benzonatate (Benzonatate) 100 Mg Capsule, 200 MG PO TID PRN for COUGH, (Reported) Entered as Reported by: FRANSICO PARKER on 12/03/222354 Last Action: Continued Capecitabine (Xeloda) 500 Mg Tablet, 2,000 MG PO BID-MO,,WE,TH,FR, (Reported) Entered as Reported by: VALERIO VALENTIN on 12/04/221531 Last Action: Held Dapagliflozin Propanediol (Farxiga) 10 Mg Tablet, 10 MG PO DAILY, (Reported) Entered as Reported by: FRANSICO PARKER on 12/03/222354 Last Action: Held Duloxetine HCl (Duloxetine HCl) 30 Mg Capsule.dr, 30 MG PO HS, (Reported) Entered as Reported by: FRANSICO PARKER on 12/03/222354 Last Action: Continued Escitalopram Oxalate (Escitalopram Oxalate) 20 Mg Tablet, 20 MG PO DAILY, (Reported) Entered as Reported by: FRANSICO PARKER on 12/03/222354 Last Action: Converted Fluticasone Propionate (Fluticasone Propionate) 50 Mcg/Actuation [place].susp, 1-2 SPRAYS NSEACH DAILY, (Reported) Entered as Reported by: FRANSICO PARKER on 12/03/222354 Last Action: Continued Insulin Aspart (Novolog Flexpen) 100 Unit/Ml (3 Ml) Solution, 10 UNITS SQ AC, (Reported) Entered as Reported by: FRANSICO PARKER on 12/03/222354 Last Action: Held Insulin Aspart (Novolog Flexpen) 100 Unit/Ml (3 Ml) Solution, UNITS SQ AC, (Reported) Entered as Reported by: VALERIO VALENTIN on 12/04/221529 Last Action: Held Insulin Detemir (Levemir Flexpen) 100 Unit/Ml (3 Ml) Insuln.pen, 30 UNITS SQ HS, (Reported) Entered as Reported by: FRANSICO PARKER on 12/03/222354 Last Action: Held Levothyroxine Sodium (Euthyrox) 100 Mcg Tablet, 100 MCG PO DAILY, (Reported) Entered as Reported by: FRANSICO PARKER on 12/03/222354 Last Action: Continued Lipase/Protease/Amylase (Creon Dr 36,000 Units Capsule) 36K-114K Capsule.dr, 4 EA PO AC, (Reported) Entered as Reported by: FRANSICO PARKER on 12/03/222354 Last Action: Converted Loratadine (Loratadine) 10 Mg Tablet, 10 MG PO DAILY, (Reported) Entered as Reported by: VALERIO VALENTIN on 12/04/221529 Last Action: Continued Mirtazapine (Mirtazapine) 30 Mg Tablet, 30 MG PO HS, (Reported) Entered as Reported by: FRANSICO PARKER on 12/03/222354 Last Action: Converted Morphine Sulfate (Morphine Sulfate IR Tablet) 15 Mg Tablet, 15 MG PO EVERY 3 HOURS PRN for PAIN-SEVERE (8-10), (Reported) Entered as Reported by: VALERIO VALENTIN on 12/04/221529 Last Action: Continued Omeprazole (Omeprazole) 40 Mg Capsule.dr, 40 MG PO DAILY, (Reported) Entered as Reported by: FRANSICO PARKER on 12/03/222354 Last Action: Converted Ondansetron (Ondansetron Odt) 8 Mg Tab.rapdis, 8 MG PO BID PRN for NAUSEA/VOMITING-1ST LINE, (Reported) Entered as Reported by: FRANSICO PARKER on 12/03/222354 Last Action: Held Potassium Chloride (Klor-Con M20) 20 Meq Tab.er.prt, 40 MEQ PO TID, (Reported) Entered as Reported by: VALERIO VALENTIN on 12/04/221529 Last Action: Continued Pregabalin (Pregabalin) 50 Mg Capsule, 50 MG PO BID PRN for PAIN-BREAKTHROUGH, (Reported) Entered as Reported by: VALERIO VALENTIN on 12/04/221529 Last Action: Continued Rosuvastatin Calcium (Rosuvastatin Calcium) 20 Mg Tablet, 20 MG PO DAILY, (Reported) Entered as Reported by: FRANSICO PARKER on 12/03/222354 Last Action: Continued Torsemide (Torsemide) 20 Mg Tablet, 40 MG PO DAILY, (Reported) Entered as Reported by: FRANSICO PARKER on 12/03/222354 Last Action: Held Tramadol HCl (Tramadol HCl) 50 Mg Tablet, 50 MG PO TID PRN for PAIN-MODERATE (5- 7), (Reported) Entered as Reported by: VALERIO VALENTIN on 12/04/221529 Last Action: Continued Zolpidem Tartrate (Zolpidem Tartrate) 5 Mg Tablet, 5 MG PO HS PRN for SLEEP, (Reported) Entered as Reported by: VALERIO VALENTIN on 12/04/221529 Last Action: Continued [Dronabinol] 5 CAP, 5-10 MG PO BID PRN for APPETITE STIMULATION, (Reported) Entered as Reported by: VALERIO VALENTIN on 12/04/221529 Last Action: Reviewed Discontinued Medications Ibuprofen (Ibuprofen) 800 Mg Tablet, 800 MG PO Q8H PRN for PAIN Discontinued Reason: No Longer Taking Prescribed by: TYRA CELIS on 11/25/18 130 Last Action: Discontinued Oxycodone HCl/Acetaminophen (Percocet 5-325 mg Tablet) 1 Each Tablet, 1 TAB PO Q6H PRN for PAIN-MODERATE Discontinued Reason: No Longer Taking Prescribed by: TYRA CELIS on 11/25/181301 Last Action: Discontinued Potassium Chloride (Potassium Chloride) 20 Meq Tab.er.prt, 20 MEQ PO BID, (Reported) Discontinued Reason: Duplicate Order Entered as Reported by: FRANSICO PARKER on 12/03/222354 Last Action: Discontinued Physical Exam-Cardiology Physical Exam Vital Signs/I&O 12/09/22 12/09/22 12/09/22 12/09/22 21:00 21:54 22:00 23:00 Pulse 69 70 71 Resp 27 20 7 B/P (MAP) 122/67 (85) 105/53 (70) 94/67 (76) Pulse Ox 98 98 O2 Delivery Room Air Room Air Room Air Room Air 12/09/22 12/09/22 12/10/22 12/10/22 23:00 23:15 00:00 01:00 Pulse 75 66 65 Resp 29 13 B/P (MAP) 123/96 (105) 109/58 (75) Pulse Ox 99 92 O2 Delivery Room Air Room Air Room Air 12/10/22 12/10/22 12/10/22 12/10/22 01:00 02:00 03:00 03:40 Temp 35.9 Pulse 65 73 61 Resp 14 7 13 B/P (MAP) 118/60 (79) 98/68 (78) 113/57 (75) Pulse Ox 94 97 93 O2 Delivery Room Air Room Air Room Air 12/10/22 12/10/22 12/10/22 12/10/22 04:00 04:00 05:00 06:49 Pulse 63 58 65 Resp 15 11 36 B/P (MAP) 113/55 (74) 111/54 (73) 111/58 (75) Pulse Ox 94 94 92 O2 Delivery Room Air Room Air Room Air Room Air 12/10/22 12/10/22 06:58 07:00 Temp 36.4 Pulse 62 B/P (MAP) 12/10/22 00:00 Intake Total 2619 ml Output Total 3400 ml Balance -781 ml Capillary Refill : Less Than 3 Seconds Constitutional: AAO x 3, well-developed, well-nourished HEENT: PERRL, hearing is well preserved, oral hygience is good Neck: No carotid bruit; carotid pulses are 2 + bilaterally Respiratory: No accessory muscle use, No respiratory distress; chest expansion is symmetric, chest is bilaterally symmetric, other (diminished left side) Cardiovascular: regular rate-rhythm; No JVD; S1 and S2 Gastrointestinal: No tender; soft, round; No guarding Extremities: no lower extremity edema bilateral Neurologic/Psychiatric: other (moves all extremities) Skin: No rash on exposed areas, No ulcerations on exposed areas Data Review Labs Laboratory Tests 12/09/22 10:56: Glucometer 118H 12/09/22 16:17: Glucometer 159H 12/09/22 20:38: Glucometer 148H 12/10/22 05:30: White Blood Count 4.1L, Red Blood Count 3.64L, Hemoglobin 9.3L, Hematocrit 30L, Mean Corpuscular Volume 83, Mean Corpuscular Hemoglobin 26, Mean Corpuscular Hemoglobin Concent 31L, Red Cell Distribution Width 29.5H, Platelet Count 70L, Mean Platelet Volume , Immature Granulocyte % (Auto) 1, Neutrophils (%) (Auto) 70, Lymphocytes (%) (Auto) 13, Monocytes (%) (Auto) 13H, Eosinophils (%) (Auto) 3, Basophils (%) (Auto) 0, Neutrophils # (Auto) 2.9, Lymphocytes # (Auto) 0.5L, Monocytes # (Auto) 0.5, Eosinophils # (Auto) 0.1, Basophils # (Auto) 0.0, Immature Granulocyte # (Auto) 0.0, Percent Immature Platelet Fraction 11.5H, Sodium Level 139, Potassium Level 4.3, Chloride Level 113H, Carbon Dioxide Level 19L, Anion Gap 7, Blood Urea Nitrogen 12, Creatinine 0.77, Estimat Glomerular Filtration Rate 88, BUN/Creatinine Ratio 16, Glucose Level 129H, Calcium Level 7.9L, Corrected Calcium 8.5, Phosphorus Level 3.0, Magnesium Level 1.9, Total Bilirubin 0.5, Aspartate Amino Transf (AST/SGOT) 15, Alanine Aminotransferase (ALT/SGPT) 11, Alkaline Phosphatase 97, Total Protein 6.3L, Albumin 3.3 Microbiology 12/08/22 MRSA Screen - Final, Complete MRSA not isolated 12/03/22 Urine Culture - Final, Complete 3 or more isolates 12/03/22 Blood Culture - Final, Complete Radiology NAME: ETHAN ORTIZ [facility] REC#: [id number] PT STATUS: REG ER : 1960 PHYSICIAN: ERIN YANG ADMIT DATE: 12/03/22/ER Signed Date of Exam:12/03/22 CHEST 1 VIEW, AP/PA ONLY CHEST 1 VIEW, AP/PA ONLY Indication: Cough Comparison: 11/29/2022 Findings: Increased bandlike consolidation in the left midlung. No pleural effusion or pneumothorax. Stable cardiomegaly. Stable right IJ Port-A-Cath. Impression: 1. Increased left midlung zone bandlike opacities favor atelectasis. In the appropriate clinical setting, this could represent a focus of pneumonia. Dictated by: Dictated on workstation # [id number] Dict: 12/03/222124 Trans: 12/03/222129 CECE [id number] Interpreted by: CHEPE DUENAS MD Electronically signed by: CHEPE DUENAS MD 12/03/222129 NAME: ETHAN ORTIZ [facility] REC#: [id number] PT STATUS: ADM IN : 1960 PHYSICIAN: MY MILLER MD ADMIT DATE: 12/04/22/ICU Signed Date of Exam:12/09/22 CT ABDOMEN/PELVIS W WO PROCEDURE: CT abdomen and pelvis with and without contrast. TECHNIQUE: Precontrast acquisitions were acquired through the abdomen and pelvis. Multiple contiguous axial images were obtained through the abdomen and pelvis after the administration of intravenous contrast. Auto Exposure Controls were utilized during the CT exam to meet ALARA standards for radiation dose reduction. INDICATION: Abdominal pain patient with pancreatic cancer. COMPARISON: 12/01/2020 FINDINGS: There is atelectasis and probable pneumonitis in the visible lung bases. There has been surgical resection of the pancreatic head and evidence of prior Whipple procedure. There is mild intrahepatic biliary ductal dilatation. There is continued enlargement of the left adrenal gland. Splenic calcified granuloma is noted. There is no evidence of focal renal abnormality. There is ytju-oj-jswbepyp amount of colonic stool present with small partial herniation of transverse colon through an approximately 1.5 cm in diameter defect in the anterior abdominal wall underlying site of prior incision. There is no evidence of free fluid. No organized fluid collection is identified. Unopacified urinary bladder is unremarkable. IMPRESSION: Interval Whipple procedure with mild pneumobilia. There is also a small focal protrusion of transverse colon through anterior abdominal wall defect likely representing incisional hernia. Left adrenal gland enlargement is stable and likely represents adenoma. Dictated by: Dictated on workstation # [id number] Dict: 12/09/2208 Trans: 12/09/22 0847 [id number] Interpreted by: MARLEEN ANTHONY MD Electronically signed by: MARLEEN ANTHONY MD 12/09/22 0847 ECG Impression ECG Initial ECG Rhythm: A Fib/Flutter A/P-Cardiology Assessment/Admission Diagnosis A-fib/flutter with RVR - converted to SR with Amiodarone gtt - h/o PAF - follows with [facility] - Dr. Peter - h/o PAF ablation within the last 10 yrs at [facility] in [place] - exact details unknown - OAC with Eliquis 5mg per pt report (had recently stopped d/t interaction with Paxlovid) Pancreatic cancer - being managed by [facility] oncology with radiation/chemo Recent COVID (+) - treated with Paxlovid - management per medical services DM 2 H/O Whiple procedure Thrombocytopenia - pt reports chronic Discussion and Recomendations A-fib/flutter with RVR - converted with Amiodarone gtt - change to oral when IV load complete - continue OAC for stroke prophylaxis if ok with Dr. Marshall d/t low platelet count - request records from [facility] - echocardiogram today Replace electrolytes Monitor lab Management of COVID is per medical services We would like to thank medical services for this consult Further recs will be based on her hospital course ALLYSON MCKEON Dec 09, 2022 09:46
[2022-12-09] MEDS: morphine IMMEDIATE RELEASE 15 MG TABLET PO PRN ×4 (10:40→20:58)
--- NOTE | 2022-12-09 14:03 | Tele-ICU Progress Note ---
Subjective Date Seen by a Provider: Dec 09, 2022 Time Seen by a Provider: 14:02 Subjective/Events-last exam (Tele-ICU Physician , Progress Note ) Service provided via interactive audio and video telecommunications [facility] s jettem to a patient admitted to ICU bed in [facility]. Patient is seen today due to persistent need of ICU care Available chart/ vitals / labs / Images reviewed Video assessment done using teleICU camera, rest of exam as per RN She is a 62-year-old female with past medical history of pancreatic cancer for her she underwent Whipple's procedure followed by chemotherapy and radiation therapy, diabetes mellitus asthma and atrial fibrillation was admitted about a week ago to the floor with flulike symptoms associated with nausea and vomiting and that she has been treated on the medical floor. Apparently she was tested positive for COVID19 on November 28. She is also having loose black stools. Last night she developed a atrial fibrillation with rapid ventricular rate hence she is transferred to the intensive care unit and started on initially a diltiazem drip with which her blood pressure dropped hence she is started on amiodarone drip. Currently her atrial fibrillation reverted back to normal sinus rhythm. She also complains of the abdominal pain. She is evaluated with a CT of the abdomen which showed postoperative changes otherwise no acute findings noted. Currently she is being given pain medications as well as hydration. Impression 1. Atrial fibrillation with rapid ventricular rate which is now controlled with amiodarone 2. Abdominal pain etiology not clear but she is status post Whipple's procedure and chemoradiation therapy 3. History of pancreatic cancer 4. Chronic diarrhea probably due to pancreatic insufficiency. Recommendations 1. Continue aggressive hydration 2. Analgesia 3. Atrial fibrillation with rapid ventricular rate treatment per cardiology 4. Nutritional support 5. Stroke prophylaxis and DVT prophylaxis per cardiology. Coordination of care with primary care physician and bedside consultants. I am remotely monitoring this patient from Tele icu station in [place]. I am unable to do the bedside exam, and history/physical and pertinent information is taken from other notes in the computer and bedside staff. Case reviewed with P[facility]ER and in MDR. Certain portions of this document may have been dictated utilizing voice recognition technology such as [employer]oko[employer]. Inherent to this technology, typogr aphical and grammatical errors may exist. As much as I am diligent to identify and correct to these mistakes, some errors may remain in the document. Critical care time devoted to this patient today is approximately is-25 minutes.- Sepsis Event Evaluation Height, Weight, BMI Height: '" Weight: lbs. oz. kg; 40.21 BMI Method: Focused Exam Lactate Level 12/09/22 00:45: Lactic Acid Level 1.04 Exam Exam Patient acknowledged, consented, and participated in this virtual visit which wa s conducted using real time audio/video Vital Signs Date Time Temp Pulse Resp B/P (MAP) Pulse Ox O2 Delivery O2 Flow Rate FiO2 12/09/22 13:00 66 16 119/71 (87) 97 Room Air 12/09/22 12:11 36.0 12/09/22 12:06 60 12/09/22 12:00 Room Air 12/09/22 12:00 70 16 126/76 (93) 96 Room Air 12/09/22 11:00 64 29 122/75 (91) 95 Room Air 12/09/22 10:00 68 12 106/59 (75) 94 Room Air 12/09/22 09:38 Room Air 0.00 12/09/22 09:31 95 Room Air 0.00 12/09/22 09:00 67 34 118/70 (86) 96 Room Air 12/09/22 08:56 36.3 12/09/22 08:00 67 28 68/52 (57) 96 Room Air 12/09/22 08:00 Room Air 12/09/22 07:30 57 12/09/22 07:16 36.7 12/09/22 07:00 68 20 101/60 (74) 95 Room Air 12/09/22 06:00 112 12/09/22 06:00 112 14 98/84 (89) 96 Room Air 12/09/22 05:30 120 18 107/71 (83) 97 Room Air 12/09/22 04:22 116 15 107/73 (84) 93 Room Air 12/09/22 04:00 Room Air 12/09/22 03:52 120 16 88/68 (75) 95 Room Air 12/09/22 03:44 126 11 88/73 (78) 94 Room Air 12/09/22 03:18 122 12/09/22 03:00 140 15 91 Room Air 12/09/22 02:00 135 15 96 Room Air 12/09/22 01:45 135 15 87/77 (80) 96 Room Air 12/09/22 01:00 142 12/09/22 01:00 152 12 111/79 (90) 97 Room Air 12/09/22 00:00 143 14 102/67 (79) 92 Room Air 12/08/22 23:59 Room Air 12/08/22 23:31 174 102/74 12/08/22 23:00 149 19 100/66 (77) 94 Room Air 12/08/22 22:00 149 12 101/63 (76) 92 Room Air 12/08/22 21:45 146 21 108/70 (83) 97 Room Air 12/08/22 21:30 156 100/65 (77) 93 Room Air 12/08/22 21:15 149 98/84 (89) 97 Room Air 12/08/22 21:00 147 13 106/78 (87) 96 Room Air 12/08/22 20:59 146 12/08/22 20:57 146 14 101/79 (86) 95 Room Air 12/08/22 20:05 150 12/08/22 19:58 Room Air 12/08/22 19:23 36.1 62 18 132/70 (90) 96 Room Air 12/08/22 19:00 80 12/08/22 18:45 97 Room Air 12/08/22 18:39 68 98 21 12/08/22 16:50 36.4 66 19 133/76 (95) 96 Room Air I & O 12/09/22 07:00 Intake Total 3540 ml Output Total 5300 ml Balance -1760 ml Height & Weight Height: '" Weight: lbs. oz. kg; 40.21 BMI Method: General Appearance: Chronically ill, Mild Distress Respiratory: No Accessory Muscle Use, No Respiratory Distress, Other (Scattered rhonchi with mild expiratory wheeze but airflow has improved today compared to yesterday) Cardiovascular: Irregularly Irregular, Tachycardia Capillary Refill: Less Than 3 Seconds Gastrointestinal: normal bowel sounds, soft, no organomegaly, tenderness (Generalized tenderness) Extremity: Non Tender, No Pedal Edema Neurologic/Psychiatric: Alert, Oriented x3 Results Lab Laboratory Tests 12/08/22 04:01 12/08/22 23:15 12/09/22 05:00 Assessment/Plan Assessment/Plan as above Critical Care: Critically Ill Patient Time spent with patient (mins): 25 [place],CAMILLA P MD Dec 09, 2022 14:03
[2022-12-09] MEDS: HYDROmorphone INJECTION 2 MG/ML VIAL IV PRN ×4 (14:45→23:24)
[2022-12-09] MEDS ORDERED: LOPERAMIDE 2 MG CAPSULE PO PRN (15:00)
[2022-12-09] MEDS ORDERED: RT-ALBUTEROL SULF 2.5 MG/3 ML PRE-MIX VIAL INH PRN (17:00)
--- NOTE | 2022-12-09 17:19 | Consultation-Cardiology ---
HPI-Cardiology Cardiology Consultation: Date of Consultation 12/09/22 Time Seen by a Provider: 13:30 Date of Admission Attending Physician Awilda Reynolds MD Admitting Physician Admitting Physician: Lambert Lomas MD Attending Physician: Day Paniagua MD Consulting Physician EDNA ROMANO MD, MA, FACP, FACC, [facility], CCDS HPI: Chief Complaint: Reason for Card consult: PAF Ms. Coulter is a 62 yr old female admitted to ICU 2 from the ED with c/o gen we akness, fatigue. She reports she was dx with COVID last week and was started on Paxlovid. She reports she stopped her Eliquis d/t concern of interaction. She denies any c/o CP, palpitations, syncope, near syncope or LE swelling. We have been consulted d/t her converting to a-fib/flutter with RVR. She has converted to SR. She denies any n/v/d. She reports she follows with [facility], Dr. Peter for cardiology as she has a a h/o PAF. She does have pancreatic cancer and is being treated at [facility]. Review of Systems-Cardiology Review of Systems Constitutional: As described under HPI Eyes: No vision change Ears/Nose/Throat: No epistaxis Respiratory: As described under HPI Cardiovascular: As described under HPI Gastrointestinal: constipation; No diarrhea, No nausea, No vomiting Genitourinary: No dysuria Musculoskeletal: no symptoms reported Skin: No rash on exposed areas, No ulcerations on exposed areas Psychiatric/Neurological: No anxiety, No depression, No seizure, No focal weakness, No syncope Hematologic: No bleeding abnormalities All Other Systems Reviewed Negative Unless Noted: Yes LTD-[id number] Hx Patient Social History 2nd Hand Smoke Exposure: No Past Medical History PMH As described under Assessment. Family Medical History Family Medical History: She reports her father had a AAA and passed at age 52. She reports a sister with a-fib, who has passed. Allergies and Home Medications Allergies Coded Allergies: gabapentin (Verified Allergy, Intermediate, Pedal Swelling, 12/06/22) Patient states levothyroxine (Verified Allergy, Mild, Swelling in neck, 12/06/22) Patient states that she only has this reaction to the generic form of this medication. Penicillins (Verified Adverse Reaction, Mild, nausea, 11/25/18) Patient Home Medication List Home Medication List Reviewed: Yes Albuterol Sulfate (Ventolin Hfa) 90 Mcg Hfa.aer.ad, 2 PUFF INH Q4H PRN for SHORTNESS OF BREATH, (Reported) Entered as Reported by: VALERIO VALENTIN on 12/04/221529 Last Action: Continued Apixaban (Eliquis) 5 Mg Tablet, 5 MG PO BID, (Reported) Entered as Reported by: FRANSICO PARKER on 12/03/222354 Last Action: Continued Benzonatate (Benzonatate) 100 Mg Capsule, 200 MG PO TID PRN for COUGH, (Rep orted) Entered as Reported by: FRANSICO PARKER on 12/03/222354 Last Action: Continued Capecitabine (Xeloda) 500 Mg Tablet, 2,000 MG PO BID-,,,,FR, (Reported) Entered as Reported by: VALERIO VALENTIN on 12/04/221531 Last Action: Held Dapagliflozin Propanediol (Farxiga) 10 Mg Tablet, 10 MG PO DAILY, (Reported) Entered as Reported by: FRANSICO PARKER on 12/03/222354 Last Action: Held Duloxetine HCl (Duloxetine HCl) 30 Mg Capsule.dr, 30 MG PO HS, (Reported) Entered as Reported by: FRANSICO PARKER on 12/03/222354 Last Action: Continued Escitalopram Oxalate (Escitalopram Oxalate) 20 Mg Tablet, 20 MG PO DAILY, (Repor danielle) Entered as Reported by: FRANSICO PARKER on 12/03/222354 Last Action: Converted Fluticasone Propionate (Fluticasone Propionate) 50 Mcg/Actuation [place].susp, 1-2 SPRAYS NSEACH DAILY, (Reported) Entered as Reported by: FRANSICO PARKER on 12/03/222354 Last Action: Continued Insulin Aspart (Novolog Flexpen) 100 Unit/Ml (3 Ml) Solution, 10 UNITS SQ AC, (Reported) Entered as Reported by: FRANSICO PARKER on 12/03/222354 Last Action: Held Insulin Aspart (Novolog Flexpen) 100 Unit/Ml (3 Ml) Solution, UNITS SQ AC, (Reported) Entered as Reported by: VALERIO VALENTIN on 12/04/221529 Last Action: Held Insulin Detemir (Levemir Flexpen) 100 Unit/Ml (3 Ml) Insuln.pen, 30 UNITS SQ HS, (Reported) Entered as Reported by: FRANSICO PARKER on 12/03/222354 Last Action: Held Levothyroxine Sodium (Euthyrox) 100 Mcg Tablet, 100 MCG PO DAILY, (Reported) Entered as Reported by: FRANSICO PARKER on 12/03/222354 Last Action: Continued Lipase/Protease/Amylase (Jeremyon 36,000 Units Capsule) 36K-114K Capsule.dr, 4 EA PO AC, (Reported) Entered as Reported by: FRANSICO PARKER on 12/03/222354 Last Action: Converted Loratadine (Loratadine) 10 Mg Tablet, 10 MG PO DAILY, (Reported) Entered as Reported by: VALERIO VALENTIN on 12/04/221529 Last Action: Continued Mirtazapine (Mirtazapine) 30 Mg Tablet, 30 MG PO HS, (Reported) Entered as Reported by: FRANSICO PARKER on 12/03/222354 Last Action: Converted Morphine Sulfate (Morphine Sulfate IR Tablet) 15 Mg Tablet, 15 MG PO EVERY 3 HOURS PRN for PAIN-SEVERE (8-10), (Reported) Entered as Reported by: VALERIO VALENTIN on 12/04/221529 Last Action: Continued Omeprazole (Omeprazole) 40 Mg Capsule., 40 MG PO DAILY, (Reported) Entered as Reported by: FRANSICO PARKER on 12/03/222354 Last Action: Converted Ondansetron (Ondansetron Odt) 8 Mg Tab.rapdis, 8 MG PO BID PRN for NAUSEA/VOMITING-1ST LINE, (Reported) Entered as Reported by: FRANSICO PARKER on 12/03/222354 Last Action: Held Potassium Chloride (Klor-Con M20) 20 Meq Tab.er.prt, 40 MEQ PO TID, (Reported) Entered as Reported by: VALERIO VALENTIN on 12/04/221529 Last Action: Continued Pregabalin (Pregabalin) 50 Mg Capsule, 50 MG PO BID PRN for PAIN-BREAKTHROUGH, (Reported) Entered as Reported by: VALERIO VALENTIN on 12/04/221529 Last Action: Continued Rosuvastatin Calcium (Rosuvastatin Calcium) 20 Mg Tablet, 20 MG PO DAILY, (Reported) Entered as Reported by: FRANSICO PARKER on 12/03/222354 Last Action: Continued Torsemide (Torsemide) 20 Mg Tablet, 40 MG PO DAILY, (Reported) Entered as Reported by: FRANSICO PARKER on 12/03/222354 Last Action: Held Tramadol HCl (Tramadol HCl) 50 Mg Tablet, 50 MG PO TID PRN for PAIN-MODERATE (5- 7), (Reported) Entered as Reported by: VALERIO VALENTIN on 12/04/221529 Last Action: Continued Zolpidem Tartrate (Zolpidem Tartrate) 5 Mg Tablet, 5 MG PO HS PRN for SLEEP, (Reported) Entered as Reported by: VALERIO VALENTIN on 12/04/221529 Last Action: Continued [Dronabinol] 5 CAP, 5-10 MG PO BID PRN for APPETITE STIMULATION, (Reported) Entered as Reported by: VALERIO VALENTIN on 12/04/221529 Last Action: Reviewed Discontinued Medications Ibuprofen (Ibuprofen) 800 Mg Tablet, 800 MG PO Q8H PRN for PAIN Discontinued Reason: No Longer Taking Prescribed by: TYRA CELIS on 11/25/18 1302 Last Action: Discontinued Oxycodone HCl/Acetaminophen (Percocet 5-325 mg Tablet) 1 Each Tablet, 1 TAB PO Q6H PRN for PAIN-MODERATE Discontinued Reason: No Longer Taking Prescribed by: TYRA CELIS on 11/25/18 1302 Last Action: Discontinued Potassium Chloride (Potassium Chloride) 20 Meq Tab.er.prt, 20 MEQ PO BID, (Reported) Discontinued Reason: Duplicate Order Entered as Reported by: FRANSICO PARKER on 12/03/222354 Last Action: Discontinued Physical Exam-Cardiology Physical Exam Vital Signs/I&O 12/09/22 12/09/22 12/09/22 12/09/22 05:30 06:00 06:00 07:00 Pulse 120 112 112 68 Resp 18 14 20 B/P (MAP) 107/71 (83) 98/84 (89) 101/60 (74) Pulse Ox 97 96 95 O2 Delivery Room Air Room Air Room Air 12/09/22 12/09/22 12/09/22 12/09/22 07:16 07:30 08:00 08:00 Temp 36.7 Pulse 57 67 Resp 28 B/P (MAP) 68/52 (57) Pulse Ox 96 O2 Delivery Room Air Room Air 12/09/22 12/09/22 12/09/2223 08:56 09:00 09:31 09:38 Temp 36.3 Pulse 67 Resp 34 B/P (MAP) 118/70 (86) Pulse Ox 96 95 O2 Delivery Room Air Room Air Room Air O2 Flow Rate 0.00 0.00 12/09/22 12/09/22 12/09/22 12/09/22 10:00 11:00 12:00 12:00 Pulse 68 64 70 Resp 12 29 16 B/P (MAP) 106/59 (75) 122/75 (91) 126/76 (93) Pulse Ox 94 95 96 O2 Delivery Room Air Room Air Room Air Room Air 12/09/22 12/09/22 12/09/22 12/09/22 12:06 12:11 13:00 14:00 Temp 36.0 Pulse 60 66 71 Resp 16 21 B/P (MAP) 119/71 (87) 128/67 (87) Pulse Ox 97 96 O2 Delivery Room Air Room Air 12/09/22 12/09/22 12/09/22 12/09/22 15:00 16:00 16:00 16:23 Temp 36.2 Pulse 62 72 Resp 12 15 B/P (MAP) 115/58 (77) 130/86 (101) Pulse Ox 90 95 O2 Delivery Room Air Room Air Room Air 12/09/22 00:00 Intake Total 3390 ml Output Total 3300 ml Balance 90 ml Capillary Refill : Less Than 3 Seconds Constitutional: AAO x 3, well-developed, well-nourished HEENT: PERRL, hearing is well preserved, oral hygience is good Neck: No carotid bruit; carotid pulses are 2 + bilaterally Respiratory: No accessory muscle use, No respiratory distress; chest expansion is symmetric, chest is bilaterally symmetric, other (diminished left side) Cardiovascular: regular rate-rhythm; No JVD; S1 and S2 Gastrointestinal: No tender; soft, round; No guarding Extremities: no lower extremity edema bilateral Neurologic/Psychiatric: other (moves all extremities) Skin: No rash on exposed areas, No ulcerations on exposed areas Data Review Labs Laboratory Tests 12/08/22 20:05: Glucometer 123H 12/08/22 23:15: White Blood Count 4.2L, Red Blood Count 4.21, Hemoglobin 10.2L, Hematocrit 34L, Mean Corpuscular Volume 80, Mean Corpuscular Hemoglobin 24L, Mean Corpuscular Hemoglobin Concent 30L, Red Cell Distribution Width 28.4H, Platelet Count 66L, Mean Platelet Volume , Immature Granulocyte % (Auto) 1, Neutrophils (%) (Auto) 67, Lymphocytes (%) (Auto) 13, Monocytes (%) (Auto) 16H, Eosinophils (%) (Auto) 4, Basophils (%) (Auto) 0, Neutrophils # (Auto) 2.8, Lymphocytes # (Auto) 0.5L, Monocytes # (Auto) 0.7, Eosinophils # (Auto) 0.2, Basophils # (Auto) 0.0, Immature Granulocyte # (Auto) 0.0, Percent Immature Platelet Fraction 12.3H, Sodium Level 136, Potassium Level 3.6, Chloride Level 105, Carbon Dioxide Level 21, Anion Gap 10, Blood Urea Nitrogen 17, Creatinine 0.94, Estimat Glomerular Filtration Rate 69, BUN/Creatinine Ratio 18, Glucose Level 133H, Calcium Level 7.9L, Troponin I < 0.028 12/09/22 00:45: Prothrombin Time 15.7H, INR Comment 1.2, Activated Partial Thromboplast Time 31, Lactic Acid Level 1.04 12/09/22 05:00: White Blood Count 3.1L, Red Blood Count 3.86, Hemoglobin 9.3L, Hematocrit 31L, Mean Corpuscular Volume 80, Mean Corpuscular Hemoglobin 24L, Mean Corpuscular Hemoglobin Concent 30L, Red Cell Distribution Width 28.6H, Platelet Count 63L, Mean Platelet Volume , Immature Granulocyte % (Auto) 0, Neutrophils (%) (Auto) 62, Lymphocytes (%) (Auto) 15, Monocytes (%) (Auto) 18H, Eosinophils (%) (Auto) 5, Basophils (%) (Auto) 0, Neutrophils # (Auto) 1.9, Lymphocytes # (Auto) 0.5L, Monocytes # (Auto) 0.6, Eosinophils # (Auto) 0.2, Basophils # (Auto) 0.0, Immature Granulocyte # (Auto) 0.0, Percent Immature Platelet Fraction 13.5H, Sodium Level 137, Potassium Level 3.9, Chloride Level 107, Carbon Dioxide Level 21, Anion Gap 9, Blood Urea Nitrogen 15, Creatinine 0.85, Estimat Glomerular Filtration Rate 78, BUN/Creatinine Ratio 18, Glucose Level 114H, Calcium Level 7.4L, Neutrophils % (Manual) 62, Lymphocytes % (Manual) 16, Monocytes % (Manual) 18, Eosinophils % (Manual) 4, Hypochromasia SLIGHT, Anisocytosis MARKED, Corrected Calcium 8.2L, Phosphorus Level 3.0, Magnesium Level 1.7, Total Bilirubin 0.6, Aspartate Amino Transf (AST/SGOT) 16, Alanine Aminotransferase (ALT/SGPT) 11, Alkaline Phosphatase 97, Total Protein 5.8L, Albumin 3.0L 12/09/22 10:56: Glucometer 118H 12/09/22 16:17: Glucometer 159H Microbiology 12/03/22 Urine Culture - Final, Complete 3 or more isolates 12/03/22 Blood Culture - Final, Complete A/P-Cardiology Assessment/Admission Diagnosis A-fib/flutter with RVR - converted to SR with Amiodarone gtt - h/o PAF - follows with [facility] - Dr. Peter - h/o PAF ablation within the last 10 yrs at [facility] in [place] - exact details unknown - OAC with Eliquis 5mg per pt report (had recently stopped d/t interaction with Paxlovid) Pancreatic cancer - being managed by [facility] oncology with radiation/chemo Recent COVID (+) - treated with Paxlovid - management per medical services DM 2 H/O Whiple procedure Thrombocytopenia - pt reports chronic Discussion and Recomendations A-fib/flutter with RVR - converted with Amiodarone gtt - change to oral when IV load complete - continue OAC for stroke prophylaxis if ok with Dr. Marshall (d/t low platelet count) - request records from [facility] - echocardiogram today Replace electrolytes Monitor lab Management of COVID is per medical services We would like to thank Dr Marshall for this consult Further recs will be based on her hospital course EDNA ROMANO MD [facility] CCDS Dec 09, 2022 17:18
[2022-12-09] MEDS: dilTIAZem DRIP PRE-MIX 125 ML IV SCH (19:29)
--- NOTE | 2022-12-09 20:54 | Progress Note - Hospitalist ---
Subjective HPI/CC On Admission Date Seen by Provider: Dec 09, 2022 Time Seen by Provider: 11:10 Patient is 62-year-old female past medical history of pancreatic cancer currently on chemotherapy and radiation status post Whipple procedure as well, diabetes, asthma, atrial fibrillation on anticoagulation who presented to the emergency department due to flulike symptoms with nausea and vomiting. She reports that her symptoms started on November 28 and the next day she tested positive for COVID. She continued to feel worse and began having vomiting 3-4 times a day along with loose black stools. She has not been able to keep up with her oral intake either and feels quite dehydrated. She is also having some pain with her cough and a low-grade temperature. Given her chronic multiple medical conditions and dehydration she was admitted for further management. This morning she reports feeling about the same and that her nausea is still persistent. Subjective/Events-last exam She continues to have pain. She says the Fentanyl works but is not lasting long enough. She has no other complaints. Focused Exam Lactate Level 12/09/22 00:45: Lactic Acid Level 1.04 Objective Exam Vital Signs Vital Signs Date Time Temp Pulse Resp B/P (MAP) Pulse Ox O2 Delivery O2 Flow Rate FiO2 12/09/22 19:42 36.4 12/09/22 19:00 66 12/09/22 18:00 40 94 Room Air 12/09/22 09:38 0.00 12/08/22 18:39 21 Capillary Refill : Less Than 3 Seconds General Appearance: No Apparent Distress, Obese Respiratory: Lungs Clear, No Respiratory Distress Cardiovascular: Regular Rate, Rhythm, No Murmur Gastrointestinal: Normal Bowel Sounds, Soft, Tenderness Extremity: Normal Inspection, No Pedal Edema Neurologic/Psychiatric: Alert, No Motor/Sensory Deficits Results/Procedures Lab Laboratory Tests 12/08/22 23:15 12/09/22 05:00 Patient resulted labs reviewed. Imaging: Reviewed Imaging Report Assessment/Plan Assessment and Plan Assess & Plan/Chief Complaint Pain of metastatic malignancy Pancreatic cancer Fentanyl patch Increase oral morphine Transition to IV Dilaudid as needed Continue radiation and chemo per radiation oncology AFib with RVR Cardiology following Echo ordered Amiodarone Eliquis Pancytopenia Reported dark stools FOBT+ PPI Spoke with surgery- recommends outpatient scope unless actively bleeding Hgb stable T2DM SSI Hypothyroidism Anxiety/Depression Sepsis due to PNA and COVID, resolved Diagnosis/Problems Diagnosis/Problems (1) Pain of metastatic malignancy Status: Acute (2) Pancreatic cancer Status: Chronic (3) Sepsis Status: Resolved Resolution Date/Time: 12/09/22 @ 21:07 (4) COVID-19 Status: Acute (5) Pneumonia Status: Acute (6) Pancytopenia due to chemotherapy Status: Acute (7) Atrial fibrillation with RVR Status: Acute DARIEL GIANG MD Dec 09, 2022 20:54
[2022-12-09] MEDS: DULoxetine 30 MG CAPSULE PO SCH (20:58)
[2022-12-09] MEDS: AMIODARONE 200 MG TABLET PO SCH (20:58)
[2022-12-09] MEDS: MIRTAZAPINE 15 MG TABLET PO SCH (20:59)
[2022-12-09] MEDS: RT-ALBUTEROL SULF 2.5 MG/3 ML PRE-MIX VIAL INH SCH (21:54)
[2022-12-10] MEDS: NS + KCL 20 MEQ/L 1000 ML 1,000 ML IV SCH (02:23)
[2022-12-10] MEDS: NS IV 1000 ML 1,000 ML IV SCH ×2 (02:23→10:27)
[2022-12-10] MEDS: HYDROmorphone INJECTION 2 MG/ML VIAL IV PRN ×2 (02:26→05:29)
[2022-12-10] MEDS: morphine IMMEDIATE RELEASE 15 MG TABLET PO PRN ×3 (05:29→12:46)
[2022-12-10 05:55] LABS: BASOPHILS % (AUTO) 0 % (0-10); EOSINOPHILS # (AUTO) 0.1 10^3/uL (0.0-0.3); EOSINOPHILS % (AUTO) 3 % (0-10); HEMATOCRIT 30 % (35-52)
[2022-12-10 05:57] LABS: HEMOGLOBIN 9.3 g/dL (11.5-16.0); LYMPHOCYTES # (AUTO) 0.5 10^3/uL (1.0-4.0); LYMPHOCYTES % (AUTO) 13 % (12-44); MEAN CORPUSCULAR HEMOGLOBIN 26 pg (25-34); MEAN CORPUSCULAR HGB CONC 31 g/dL (32-36); MEAN CORPUSCULAR VOLUME 83 fL (80-99); MONOCYTES # (AUTO) 0.5 10^3/uL (0.0-1.0); MONOCYTES % (AUTO) 13 % (0-12); NEUTROPHILS # (AUTO) 2.9 10^3/uL (1.8-7.8); NEUTROPHILS % (AUTO) 70 % (42-75); PLATELET COUNT 70 10^3/uL (130-400); WHITE BLOOD COUNT 4.1 10^3/uL (4.3-11.0)
[2022-12-10] MEDS: CATHETER FLUSH 10 ML SYR IV SCH (06:11)
[2022-12-10 06:22] LABS: ALBUMIN 3.3 GM/DL (3.2-4.5); POTASSIUM 4.3 MMOL/L (3.6-5.0)
[2022-12-10 06:24] LABS: CALCIUM 7.9 MG/DL (8.5-10.1)
[2022-12-10 06:25] LABS: TOTAL PROTEIN 6.3 GM/DL (6.4-8.2)
[2022-12-10 06:26] LABS: BILIRUBIN,TOTAL 0.5 MG/DL (0.1-1.0)
[2022-12-10 06:28] LABS: CREATININE SERUM 0.77 MG/DL (0.60-1.30)
[2022-12-10] MEDS ORDERED: LEVOTHYROXINE 100 MCG TABLET PO SCH (06:30)
[2022-12-10 06:31] LABS: MAGNESIUM 1.9 MG/DL (1.6-2.4)
[2022-12-10] MEDS: inSUlin ASPART 1 UNIT/0.01 ML (PER UNIT) SC SCH ×2 (06:34→11:30)
[2022-12-10] MEDS: MICONAZOLE 2% POWDER 90 GM TOP SCH (08:19)
[2022-12-10] MEDS: FLUTICASONE NASAL SPRAY (120 SPRAYS) NS SCH (08:19)
--- NOTE | 2022-12-10 08:19 | Tele-ICU Progress Note ---
Subjective Date Seen by a Provider: Dec 10, 2022 Time Seen by a Provider: 08:17 Subjective/Events-last exam (Tele-ICU Physician , Progress Note ) Service provided via interactive audio and video telecommunications E-CARE system to a patient admitted to ICU bed in [facility]. Patient is seen today due to persistent need of ICU care Available chart/ vitals / labs / Images reviewed Video assessment done using teleICU camera, rest of exam as per RN 62 yo F admitted with a fib with RVR started on IV Cardizem but switched to amiodarone due to drop in BP. now V rate is in 60's. Now on amiodarone 400 bid Hx of Whipple procedure for pancreatic Ca, also chemo and RT, Has chronic abd pain but CT abd/pelvis showed no acute process Sepsis Event Evaluation Height, Weight, BMI Height: '" Weight: lbs. oz. kg; 40.18 BMI Method: Focused Exam Lactate Level 12/09/22 00:45: Lactic Acid Level 1.04 Exam Exam Patient acknowledged, consented, and participated in this virtual visit which was conducted using real time audio/video Vital Signs Date Time Temp Pulse Resp B/P (MAP) Pulse Ox O2 Delivery O2 Flow Rate FiO2 12/10/22 07:00 36.4 12/10/22 06:58 62 12/10/22 06:49 65 36 111/58 (75) 92 Room Air 12/10/22 05:00 58 11 111/54 (73) 94 Room Air 12/10/22 04:00 Room Air 12/10/22 04:00 63 15 113/55 (74) 94 Room Air 12/10/22 03:40 35.9 12/10/22 03:00 61 13 113/57 (75) 93 Room Air 12/10/22 02:00 73 7 98/68 (78) 97 Room Air 12/10/22 01:00 65 14 118/60 (79) 94 Room Air 12/10/22 01:00 65 12/10/22 00:00 66 13 109/58 (75) 92 Room Air 12/09/22 23:15 75 29 123/96 (105) 99 Room Air 12/09/22 23:00 Room Air 12/09/22 23:00 71 7 94/67 (76) 98 Room Air 10/9/23 22:00 70 20 105/53 (70) Room Air 12/09/22 21:54 Room Air 12/09/22 21:00 69 27 122/67 (85) 98 Room Air 12/09/22 20:11 68 15 133/86 (102) 88 Room Air 12/09/22 20:00 Room Air 12/09/22 19:42 36.4 12/09/22 19:00 66 30 141/93 (109) Room Air 12/09/22 19:00 66 12/09/22 18:00 65 40 100/60 (73) 94 Room Air 12/09/22 17:00 67 12 101/62 (75) 97 Room Air 12/09/22 16:23 36.2 12/09/22 16:00 72 15 130/86 (101) 95 Room Air 12/09/22 16:00 Room Air 12/09/22 15:00 62 12 115/58 (77) 90 Room Air 12/09/22 14:00 71 21 128/67 (87) 96 Room Air 12/09/22 13:00 66 16 119/71 (87) 97 Room Air 12/09/22 12:11 36.0 12/09/22 12:06 60 12/09/22 12:00 Room Air 12/09/22 12:00 70 16 126/76 (93) 96 Room Air 12/09/22 11:00 64 29 122/75 (91) 95 Room Air 12/09/22 10:00 68 12 106/59 (75) 94 Room Air 12/09/22 09:38 Room Air 0.00 12/09/22 09:31 95 Room Air 0.00 12/09/22 09:00 67 34 118/70 (86) 96 Room Air 12/09/22 08:56 36.3 I & O 12/10/22 07:00 Intake Total 3578 ml Output Total 4650 ml Balance -1072 ml Height & Weight Height: '" Weight: lbs. oz. kg; 40.18 BMI Method: General Appearance: No Apparent Distress, Obese Respiratory: Lungs Clear, No Respiratory Distress Cardiovascular: Regular Rate, Rhythm, No Murmur Capillary Refill: Less Than 3 Seconds Gastrointestinal: normal bowel sounds, soft, no organomegaly, tenderness (Generalized tenderness) Extremity: Normal Inspection, No Pedal Edema Neurologic/Psychiatric: Alert, Oriented x3, No Motor/Sensory Deficits Results Lab Laboratory Tests 12/08/22 23:15 12/09/22 05:00 12/10/22 05:30 Assessment/Plan Assessment/Plan A fib, will continue on po amiodarone, being followed by cardiology svc. Now in NSR, on Eliquis 5 mg bid-no bleeding Hx of pancreatic Ca with RT and chemo. appears stable Critical Care: Critically Ill Patient Time spent with patient (mins): 25 MILIND WOLF MD Dec 10, 2022 08:19
[2022-12-10] MEDS: CITALOPRAM 20 MG TABLET PO SCH (08:31)
[2022-12-10] MEDS: LORATADINE 10 MG TABLET PO SCH (08:31)
[2022-12-10] MEDS: AMIODARONE 200 MG TABLET PO SCH (08:31)
[2022-12-10] MEDS: POTASSIUM CHLORIDE 20 MEQ TABLET PO SCH ×2 (08:31→12:46)
[2022-12-10] MEDS: APIXABAN 5 MG TABLET PO SCH (08:32)
[2022-12-10] MEDS: PANTOPRAZOLE INJECTION 40 MG VIAL IV SCH (08:32)
[2022-12-10] MEDS: SENNOSIDES 8.6 MG TABLET PO SCH (08:32)
[2022-12-10] MEDS: BENZONATATE 100 MG CAPSULE PO SCH ×2 (08:32→12:46)
[2022-12-10] MEDS ORDERED: FENTANYL 50 MCG TOP SCH ×2 (09:00→10:00)
[2022-12-10] MEDS ORDERED: FENTANYL 100 MCG TOP SCH (10:00)
[2022-12-10] MEDS: FENTANYL PATCH REMOVAL TP SCH (10:09)
--- NOTE | 2022-12-10 10:47 | Progress Note - Cardiology ---
Cardiology SOAP Progress Note Subjective: Sitting up in bed States she feels much better Maintaining SR Feels her ankles are getting "puffy" Objective: I&O/Vital Signs 12/09/22 12/09/22 12/09/22 12/10/22 23:00 23:00 23:15 00:00 Pulse 71 75 66 Resp 7 29 13 B/P (MAP) 94/67 (76) 123/96 (105) 109/58 (75) Pulse Ox 98 99 92 O2 Delivery Room Air Room Air Room Air Room Air 12/10/22 12/10/22 12/10/22 12/10/22 01:00 01:00 02:00 03:00 Pulse 65 65 73 61 Resp 14 7 13 B/P (MAP) 118/60 (79) 98/68 (78) 113/57 (75) Pulse Ox 94 97 93 O2 Delivery Room Air Room Air Room Air 12/10/22 12/10/22 12/10/22 12/10/22 03:40 04:00 04:00 05:00 Temp 35.9 Pulse 63 58 Resp 15 11 B/P (MAP) 113/55 (74) 111/54 (73) Pulse Ox 94 94 O2 Delivery Room Air Room Air Room Air 12/10/22 12/10/22 12/10/22 12/10/22 06:49 06:58 07:00 07:00 Temp 36.4 Pulse 65 62 60 Resp 36 20 B/P (MAP) 111/58 (75) 108/57 (74) Pulse Ox 92 92 O2 Delivery Room Air Room Air 12/10/22 12/10/22 12/10/22 12/10/22 08:00 08:00 09:00 10:00 Pulse 67 66 61 Resp 52 13 11 B/P (MAP) 104/74 (84) 121/80 (94) Pulse Ox 96 98 96 93 O2 Delivery Room Air Room Air Room Air Room Air 12/10/22 00:00 Intake Total 2619 ml Output Total 3400 ml Balance -781 ml Constitutional: AAO x 3, well-developed, well-nourished Respiratory: No accessory muscle use, No respiratory distress; chest expansion is symmetric, chest is bilaterally symmetric, other (diminished left side) Cardiovascular: regular rate-rhythm; No JVD; S1 and S2 Gastrointestional: No tender; soft, round; No guarding Extremities: no lower extremity edema bilateral Neurologic/Psychiatric: other (moves all extremities) Skin: No rash on exposed areas, No ulcerations on exposed areas Results/Procedures: Labs Laboratory Tests 12/09/22 10:56: Glucometer 118H 12/09/22 16:17: Glucometer 159H 12/09/22 20:38: Glucometer 148H 12/10/22 05:30: White Blood Count 4.1L, Red Blood Count 3.64L, Hemoglobin 9.3L, Hematocrit 30L, Mean Corpuscular Volume 83, Mean Corpuscular Hemoglobin 26, Mean Corpuscular Hemoglobin Concent 31L, Red Cell Distribution Width 29.5H, Platelet Count 70L, Mean Platelet Volume , Immature Granulocyte % (Auto) 1, Neutrophils (%) (Auto) 70, Lymphocytes (%) (Auto) 13, Monocytes (%) (Auto) 13H, Eosinophils (%) (Auto) 3, Basophils (%) (Auto) 0, Neutrophils # (Auto) 2.9, Lymphocytes # (Auto) 0.5L, Monocytes # (Auto) 0.5, Eosinophils # (Auto) 0.1, Basophils # (Auto) 0.0, Immature Granulocyte # (Auto) 0.0, Percent Immature Platelet Fraction 11.5H, Sodium Level 139, Potassium Level 4.3, Chloride Level 113H, Carbon Dioxide Level 19L, Anion Gap 7, Blood Urea Nitrogen 12, Creatinine 0.77, Estimat Glomerular Filtration Rate 88, BUN/Creatinine Ratio 16, Glucose Level 129H, Calcium Level 7.9L, Corrected Calcium 8.5, Phosphorus Level 3.0, Magnesium Level 1.9, Total Bilirubin 0.5, Aspartate Amino Transf (AST/SGOT) 15, Alanine Aminotransferase (ALT/SGPT) 11, Alkaline Phosphatase 97, Total Protein 6.3L, Albumin 3.3 Microbiology 12/08/22 MRSA Screen - Final, Complete MRSA not isolated 12/03/22 Urine Culture - Final, Complete 3 or more isolates 12/03/22 Blood Culture - Final, Complete Laboratory Tests 12/08/22 23:15 12/09/22 05:00 12/10/22 05:30 A/P: Assessment: A-fib/flutter with RVR - converted to SR with Amiodarone gtt - continue oral Amio - h/o PAF - follows with [facility] - Dr. Peter - h/o PAF ablation within the last 10 yrs at [facility] in [place] - exact details unknown - OAC with Eliquis 5mg per pt report (had recently stopped d/t interaction with Paxlovid) Pancreatic cancer - being managed by [facility] oncology with radiation/chemo Recent COVID (+) - treated with Paxlovid - management per medical services DM 2 H/O Whiple procedure Thrombocytopenia - pt reports chronic Plan: P.A-fib/flutter with RVR - currently SR - continue Amiodarone oral - continue OAC for stroke prophylaxis if ok with Dr. Marshall (d/t low platelet count) - request records from [facility] - have not received yet Monitor lab Management of COVID is per medical services Pt is adamant she would like IVF stopped b/c she feels she is starting to have some ankle swelling - she is taking in oral intake - will stop IVF ALLYSON MCKEON Dec 10, 2022 10:47
[2022-12-10] MEDS: RT-ALBUTEROL SULF 2.5 MG/3 ML PRE-MIX VIAL INH SCH (11:02)
[2022-12-10] MEDS: FLUTICASONE/VILANTEROL 100/25 MCG (7 DOSES) IH SCH (11:05)
[2022-12-10] MEDS: CAPECITABINE 500 MG PO SCH (11:29)
[2022-12-10] MEDS ORDERED: MORP30TA PO (12:20)
[2022-12-10] MEDS ORDERED: AMIO200T65 PO (12:20)
[2022-12-10] MEDS ORDERED: FENT1PAT11 TOP ×2 (12:20→13:16)
[2022-12-10] MEDS ORDERED: FENT1PAT9 TOP ×2 (12:20→13:16)
[2022-12-10] MEDS ORDERED: NALO4SPR NS (12:20)
[2022-12-10] MEDS: ONDANSETRON INJECTION 4 MG/2 ML (SDV) IV PRN (12:35)
--- NOTE | 2022-12-10 20:20 | Discharge Summary ---
Discharge Summary Hospital Course Problems/Dx: (1) Pain of metastatic malignancy Status: Acute (2) Pancreatic cancer Status: Chronic (3) Sepsis Status: Resolved (4) COVID-19 Status: Acute (5) Pneumonia Status: Acute (6) Pancytopenia due to chemotherapy Status: Acute (7) Atrial fibrillation with RVR Status: Acute Hospital Course Date of Admission: Dec 04, 2022 at 12:50 Admission Diagnosis : Sepsis due to pneumonia and COVID-19 Family Physician/Provider: Awilda Reynolds MD Date of Discharge: 12/10/22 Discharge Diagnosis: Sepsis due to pneumonia and COVID-19, AFib with RVR Hospital Course: Estrellita Coulter is a 62 year old female with pancreatic cancer s/p Whipple and currently on chemotherapy and radiation who was admitted with sepsis due to pneumonia and COVID-19. She was given a course of IV Cefepime for her pneumonia. She was given Paxlovid for COVID. She was not hypoxic. Her course was complicated by AFib with RVR. Cardiology was consulted and assisted with her care. She was started on Amiodarone. She had issues with acute on chronic pain associated with her malignancy. She was started on a Fentanyl patch. Her short acting morphine was increased. She should follow up with her oncologist, cardiology, and her pain doctor as scheduled. She was discharged home in stable condition. Labs and Pending Lab Test: Laboratory Tests 12/09/22 20:38: Glucometer 148H 12/10/22 05:30: White Blood Count 4.1L, Red Blood Count 3.64L, Hemoglobin 9.3L, Hematocrit 30L, Mean Corpuscular Volume 83, Mean Corpuscular Hemoglobin 26, Mean Corpuscular Hemoglobin Concent 31L, Red Cell Distribution Width 29.5H, Platelet Count 70L, Mean Platelet Volume , Immature Granulocyte % (Auto) 1, Neutrophils (%) (Auto) 70, Lymphocytes (%) (Auto) 13, Monocytes (%) (Auto) 13H, Eosinophils (%) (Auto) 3, Basophils (%) (Auto) 0, Neutrophils # (Auto) 2.9, Lymphocytes # (Auto) 0.5L, Monocytes # (Auto) 0.5, Eosinophils # (Auto) 0.1, Basophils # (Auto) 0.0, Immature Granulocyte # (Auto) 0.0, Percent Immature Platelet Fraction 11.5H, Sodium Level 139, Potassium Level 4.3, Chloride Level 113H, Carbon Dioxide Level 19L, Anion Gap 7, Blood Urea Nitrogen 12, Creatinine 0.77, Estimat Glomerular Filtration Rate 88, BUN/Creatinine Ratio 16, Glucose Level 129H, Calcium Level 7.9L, Corrected Calcium 8.5, Phosphorus Level 3.0, Magnesium Level 1.9, Total Bilirubin 0.5, Aspartate Amino Transf (AST/SGOT) 15, Alanine Aminotransferase (ALT/SGPT) 11, Alkaline Phosphatase 97, Total Protein 6.3L, Albumin 3.3 12/10/22 11:27: Glucometer 110 Microbiology 12/08/22 MRSA Screen - Final, Complete MRSA not isolated 12/03/22 Urine Culture - Final, Complete 3 or more isolates 12/03/22 Blood Culture - Final, Complete Home Meds Active Fentanyl Patch 50 MCG (Fentanyl) 50 Mcg/Hour Patch.td72 50 Mcg TOP Q72H 14 Days USE WITH 100 MCG PATCH FOR 150 MCG TOTAL Fentanyl Patch 100 MCG (Fentanyl) 100 Mcg/Hour Patch.td72 100 Mcg TOP Q72H 14 Days Narcan (Naloxone HCl) 4 Mg/Actuation Cobalt 4 Mg NS PRN PRN 30 Days Morphine Sulfate IR Tablet (Morphine Sulfate) 30 Mg Tablet 30 Mg PO Q3H PRN 7 Days Amiodarone HCl 200 Mg Tablet 400 Mg PO BID 30 Days Reported Xeloda (Capecitabine) 500 Mg Tablet 2,000 Mg PO BID-,,,,FR TAKES 4 (500MG) TABS TWICE DAILY, FRIDAY THRU FRIDAY ON RADIATION TREATMENT DAYS Zolpidem Tartrate 5 Mg Tablet 5 Mg PO HS PRN Pregabalin 50 Mg Capsule 50 Mg PO BID PRN Loratadine 10 Mg Tablet 10 Mg PO DAILY Ventolin Hfa (Albuterol Sulfate) 90 Mcg Hfa.aer.ad 2 Puff INH Q4H PRN Klor-Con M20 (Potassium Chloride) 20 Meq Tab.er.prt 40 Meq PO TID TAKES 2 (20MEQ) TABS Tramadol HCl 50 Mg Tablet 50 Mg PO TID PRN [Dronabinol] 5 Cap 5-10 Mg PO BID PRN TAKES 1 TO 2 (5MG) CAPS Novolog Flexpen (Insulin Aspart) 100 Unit/Ml (3 Ml) Solution Units SQ AC TAKES 10 UNITS BEFORE MEALS AND ALSO USES A CORRECTION SCALE Jeremyon 36,000 Units Capsule (Lipase/Protease/Amylase) 36K-114K Capsule. 4 Ea PO AC Escitalopram Oxalate 20 Mg Tablet 20 Mg PO DAILY Mirtazapine 30 Mg Tablet 30 Mg PO HS Rosuvastatin Calcium 20 Mg Tablet 20 Mg PO DAILY Omeprazole 40 Mg Capsule. 40 Mg PO DAILY Duloxetine HCl 30 Mg Capsule.dr 30 Mg PO HS Euthyrox (Levothyroxine Sodium) 100 Mcg Tablet 100 Mcg PO DAILY Eliquis (Apixaban) 5 Mg Tablet 5 Mg PO BID Ondansetron Odt (Ondansetron) 8 Mg Tab.rapdis 8 Mg PO BID PRN Farxiga (Dapagliflozin Propanediol) 10 Mg Tablet 10 Mg PO DAILY Fluticasone Propionate 50 Mcg/Actuation Cobalt.susp 1-2 Sprays NSEACH DAILY Benzonatate 100 Mg Capsule 200 Mg PO TID PRN TAKES 2 (100MG) CAPS Levemir Flexpen (Insulin Detemir) 100 Unit/Ml (3 Ml) Insuln.pen 30 Units SQ HS Novolog Flexpen (Insulin Aspart) 100 Unit/Ml (3 Ml) Solution 10 Units SQ AC TAKES 10 UNITS BEFORE MEALS AND ALSO USES A CORRECTION SCALE Torsemide 20 Mg Tablet 40 Mg PO DAILY TAKES 2 (20MG) TABS Assessment/Pt Instructions see instructions Discharge Planning: >30 minutes discharge planning Discharge Instructions Discharge Diet: No Restrictions Activity as Tolerated: Yes Consultations Cardiology Discharge Physical Examination Vital Signs Vital Signs Date Time Temp Pulse Resp B/P (MAP) Pulse Ox O2 Delivery O2 Flow Rate FiO2 12/10/22 14:22 12/10/22 13:00 36.4 12/10/22 12:18 69 12/10/22 12:00 97 Room Air 12/10/22 11:00 15 12/09/22 09:38 0.00 12/08/22 18:39 21 General Appearance: No Apparent Distress, Obese Respiratory: Lungs Clear, No Respiratory Distress Cardiovascular: Regular Rate, Rhythm, No Murmur Gastrointestinal: Normal Bowel Sounds, Soft, Tenderness Extremity: Normal Inspection, No Pedal Edema Neurologic/Psychiatric: Alert, Normal Mood/Affect Allergies: Coded Allergies: gabapentin (Verified Allergy, Intermediate, Pedal Swelling, 12/06/22) Patient states levothyroxine (Verified Allergy, Mild, Swelling in neck, 12/06/22) Patient states that she only has this reaction to the generic form of this medication. Penicillins (Verified Adverse Reaction, Mild, nausea, 11/25/18) Discharge Summary Date of Admission Dec 04, 2022 at 12:50 Date of Discharge Dec 10, 2022 at 14:22 Discharge Date: Dec 10, 2022 Discharge Time: 14:22 Admission Diagnosis Sepsis due to PNA and COVID Discharge Diagnosis Pain of metastatic malignancy Pancreatic cancer AFib with RVR Pancytopenia T2DM Hypothyroidism Anxiety/Depression Sepsis due to PNA and COVID, resolved (1) Pain of metastatic malignancy Status: Acute (2) Pancreatic cancer Status: Chronic (3) Sepsis Status: Resolved (4) COVID-19 Status: Acute (5) Pneumonia Status: Acute (6) Pancytopenia due to chemotherapy Status: Acute (7) Atrial fibrillation with RVR Status: Acute DARIEL GIANG MD Dec 10, 2022 20:20
== END 2022-12-10 14:22 | disposition home or self-care (01) | DRG 871 ==
LOC: EDUNIT# 20:00 → ER 20:04 → UNDOADMOB 22:03 → 4TH 22:03 → OBSVTOIN 12-04 12:50 → INTOOBSV 12-04 12:50 → 4TH 12-05 10:25 → ICU 12-08 20:52 → 4TH 12-08 20:52 → ICU 12-09 08:31 → UNDODISIN 12-10 14:22
PROVIDERS: ADMIT Internal Medicine; ATTEND Internal Medicine
PROC: 8E0ZXY6 Isolation (ICD-10-PCS; principal; 2022-12-04)
DX: A41.89 Other specified sepsis (principal); D61.810 Antineoplastic chemotherapy induced pancytopenia; U07.1 COVID-19; J12.82 Pneumonia due to coronavirus disease 2019; C25.9 Malignant neoplasm of pancreas, unspecified; N18.4 Chronic kidney disease, stage 4 (severe); I48.92 Unspecified atrial flutter; E86.0 Dehydration; E11.22 Type 2 diabetes mellitus with diabetic chronic kidney disease; Z79.4 Long term (current) use of insulin; J45.909 Unspecified asthma, uncomplicated; I48.0 Paroxysmal atrial fibrillation; E87.6 Hypokalemia; E03.9 Hypothyroidism, unspecified; F41.9 Anxiety disorder, unspecified; F32.A Depression, unspecified; E78.5 Hyperlipidemia, unspecified; K86.89 Other specified diseases of pancreas; Z79.01 Long term (current) use of anticoagulants; Z88.0 Allergy status to penicillin; Z91.09 Other allergy status, other than to drugs and biological substances; Z79.899 Other long term (current) drug therapy; Z79.1 Long term (current) use of non-steroidal anti-inflammatories (NSAID); T45.1X5A Adverse effect of antineoplastic and immunosuppressive drugs, initial encounter; Z92.21 Personal history of antineoplastic chemotherapy; Z92.3 Personal history of irradiation; D63.1 Anemia in chronic kidney disease
CPT/HCPCS: 36415; 71045; 74178; 77336; 77386; 80048; 80053; 81000; 82274; 82947; 83605; 83690; 83735; 84100; 84484; 85007; 85025; 85027; 85610; 85730; 87040; 87077; 87081; 87088; 93005; 93306; 94640; 94664; 94760; G0378

== ENCOUNTER 2022-12-13 12:54 | Outpatient (RCR) | payer MEDICAID ==
[~2022-12-13 12:54] MED LIST changes: +ALBU18HF2 INH; +AMIO200T65 PO; +APIX5TAB PO; +BENZ-36 PO; +DAPA10TA PO; +DRONABINOL PO; +DULO30CA49 PO; +ESCI20TA39 PO; +FENT1PAT11 TOP; +FENT1PAT9 TOP; +FLUT16SP22 NSEACH; +INSU100I14 SQ; +INSU100I88 SQ; +LEVO-130 PO; +LIPA1CAP67 PO; +LORA10TA7 PO; +MIRT-69 PO; +MORP15TA PO; +MORP30TA PO; +NALO4SPR NS; +NFCAPE500T PO; +OMEP40CA6 PO; +ONDA8TAB13 PO; +POTA-169 PO; +POTA-179 PO; +PREG50CA66 PO; +ROSU20TA73 PO; +TORS20TA3 PO; +TRAM50TA3 PO; +ZOLP5TAB7 PO
== END 2022-12-31 | disposition home or self-care (01) ==
LOC: ONC 12:54
PROVIDERS: ATTEND Radiology Radiation Oncology
DX: Z51.0 Encounter for antineoplastic radiation therapy (principal); E11.621 Type 2 diabetes mellitus with foot ulcer; L97.509 Non-pressure chronic ulcer of other part of unspecified foot with unspecified severity; C25.0 Malignant neoplasm of head of pancreas; B35.1 Tinea unguium; M17.0 Bilateral primary osteoarthritis of knee
CPT/HCPCS: 77336; 77386